=== PATIENT | male | born 1980 | race Caucasian/White ===

== ENCOUNTER 2017-01-07 14:08 | Emergency (ER) | payer MEDICARE, MEDICAID ==
--- NOTE | 2017-01-07 15:40 | EDM.PDOC ---
ED HPI RENAL/ - General Chief Complaint: Gastrointestinal Problem Stated Complaint: URINARY TRACK Time Seen by Provider: 01/07/17 14:30 Source of Information: Reports: Patient History Limitations: Reports: No limitations - History of Present Illness INITIAL COMMENTS - FREE TEXT/NARRATIVE: HISTORY AND PHYSICAL: History of present illness: Patient comes to the emergency room the urging of an RN at [facility] where he goes daily to receive his psychiatric meds. Nurse reports the patient's skin appears more hampton in color than usual. He has a history of anemia and nurse is concerned that he may not be taking his iron. He is scheduled for followup with his PCP Dr. Lambert on January 10. Patient is schizophrenic and has been receiving his medications regularly. He reports that he's been taking his iron as prescribed. He denies fatigue, weakness, dizziness and unsteady gait. No abdominal pain, nausea, vomiting. He denies dark black or bloody stools. He also complains of urinary burning and frequency today. States that he last saw Dr. Lambert at the end of December when he began treatment for UTI with antibiotics. He has completed this course of medication and feels that his symptoms have worsened. Has had episodes of urinary incontinence due to urgency. Review of systems: As per history of present illness and below otherwise all systems reviewed and negative. Past medical history: As per history of present illness and as reviewed below otherwise noncontributory. Surgical history: As per history of present illness and as reviewed below otherwise noncontributory. Social history: No reported history of drug or alcohol abuse. Family history: As per history of present illness and as reviewed below otherwise noncontributory. Physical exam: General: Obese well-developed male in no acute distress. Smells strongly of urine. HEENT: Atraumatic, normocephalic. Oral mucous membranes are pink and moist. negative for conjunctival pallor or scleral icterus, neck supple, nontender, trachea midline. Lungs: Clear to auscultation, breath sounds equal bilaterally, chest nontender. Heart: S1S2, regular, negative for clicks, rubs. Abdomen: Obese Soft, nondistended, nontender. Negative for masses or hepatosplenomegaly. Suprapubic or CVA tenderness. Pelvis: Stable nontender. Genitourinary: Deferred. Rectal: Deferred. Extremities: Atraumatic. No cyanosis or edema to feet or lower legs. Neurovascular unremarkable. Neuro: Awake, alert, oriented. Cranial nerves II through XII unremarkable. Exam nonfocal. psych: Alert and oriented affect is flat, voice is monotone. Diagnostics: [CBC, UA, urine culture] Impression: [Anemia Urinary incontinence] Plan: [[facility] records are obtained for review. Patient's hemoglobin on December 29 was 9.4. Hemoglobin today is 8.7. Patient is asymptomatic. Discussed with patient that his urinalysis is within normal limits and does not show any infection. Urine culture is pending. Offered hospitalization for continued monitoring of anemia which patient declines. He states that he would prefer to followup with primary care provider on January 10 as scheduled. We reviewed strict precautions which would indicate return to the ER for reevaluation. He is in agreement with this plan all of his questions are answered and concerns are addressed. Definitive disposition and diagnosis as appropriate pending reevaluation and review of above. - Related Data Allergies/ADRs: Allergies Allergy/AdvReac Type Severity Reaction Status Date / Time iodine Allergy Itching Verified 01/07/17 14:25 Penicillins AdvReac Mild Itching Verified 01/07/17 14:25 Home Meds: Home Meds Escitalopram [Lexapro] 30 mg PO DAILY 01/07/17 [History] Fenofibrate Nanocrystallized [Tricor] 325 mg PO DAILY 01/07/17 [History] Iron,Carbonyl/Vit C/Vit B12/Fa [Iron 100 Plus Tablet] 1 each PO DAILY 01/07/17 [ History] cloZAPine [Clozaril] 100 mg PO ASDIRECTED 01/07/17 [History] Past Medical History Gastrointestinal History: Reports: Hemorrhoids Genitourinary History: Reports: UTI, recurrent Psychiatric History: Reports: Anxiety, Depression, Schizophrenia Social & Family History - Family History Family Medical History: Noncontributory - Tobacco Use Years of Tobacco use: 1 - Caffeine Use Caffeine Use: Reports: Coffee, Soda Caffeine Use Comment: 3 drinks.day - Alcohol Use Days Per Week of Alcohol Use: 0 - Recreational Drug Use Recreational Drug Use: No ED ROS GENERAL - Review of Systems Review Of Systems: ROS reveals no pertinent complaints other than HPI. ED EXAM, RENAL/ - Physical Exam Exam: See Below Course - Vital Signs Last Recorded V/S: Last Vital Signs Temp 98.0 F 01/07/17 15:45 Pulse 121 H 01/07/17 15:45 Resp 18 01/07/17 15:45 BP 115/58 L 01/07/17 15:45 Pulse Ox 94 L 01/07/17 15:45 - Orders/Labs/Meds Orders: Active Orders 24 hr Category Date Time Status CULTURE URINE [RM] Stat Lab 01/07/17 14:23 Received Labs: Laboratory Tests 01/07/17 01/07/17 Range/Units 14:23 14:46 WBC 14.64 H (4.0-11.0) K/uL RBC 3.84 L (4.50-5.90) M/uL Hgb 8.7 L (13.0-17.0) g/dL Hct 29.4 L (38.0-50.0) % MCV 76.6 L (80.0-98.0) fL MCH 22.7 L (27.0-32.0) pg MCHC 29.6 L (31.0-37.0) g/dL RDW Std Deviation 48.3 (28.0-62.0) fl RDW Coeff of Lebron 17 H (11.0-15.0) % Plt Count 497 H (150-400) K/uL MPV 8.80 (7.40-12.00) fL Add Manual Diff YES Neutrophils % (Manual) 51 (48.0-80.0) % Band Neutrophils % 24 % Lymphocytes % (Manual) 16 (16.0-40.0) % Monocytes % (Manual) 6 (0.0-15.0) % Eosinophils % (Manual) 3 (0.0-7.0) % Nucleated RBC % 0.0 /100WBC Absolute Seg Neuts 7.5 Band Neutrophils # 3.5 Lymphocytes # (Manual) 2.3 Monocytes # (Manual) 0.9 Eosinophils # (Manual) 0.4 Nucleated RBCs # 0 K/uL Urine Color YELLOW Urine Appearance CLEAR Urine pH 6.0 (5.0-8.0) Ur Specific Deposit 1.025 (1.001-1.035) Urine Protein TRACE (NEGATIVE) mg/dL Urine Glucose (UA) NEGATIVE (NEGATIVE) mg/dL Urine Ketones TRACE H (NEGATIVE) mg/dL Urine Occult Blood NEGATIVE (NEGATIVE) Urine Nitrite NEGATIVE (NEGATIVE) Urine Bilirubin SMALL H (NEGATIVE) Urine Ictotest NEGATIVE Urine Urobilinogen 2.0 H (<2.0) EU/dL Ur Leukocyte Esterase NEGATIVE (NEGATIVE) Urine RBC 0-2 (0-2/HPF) Urine WBC 0-2 (0-5/HPF) Ur Epithelial Cells RARE (NONE-FEW) Calcium Oxalate Crystal FEW (NEGATIVE) Urine Bacteria FEW (NEGATIVE) Departure - Departure Time of Disposition: 15:40 Disposition: Home, Self-Care 01 Condition: good Clinical Impression: Anemia Instructions: Anemia, Nonspecific Referrals: Rene Lambert MD [Physician] - Forms: ED Department Discharge Additional Instructions: The following information is given to patients seen in the emergency department who are being discharged to home. This information is to outline your options for follow-up care. We provide all patients seen in our emergency department with a follow-up referral. The need for follow-up, as well as the timing and circumstances, are variable depending upon the specifics of your emergency department visit. If you don't have a primary care physician on staff, we will provide you with a referral. We always advise you to contact your personal physician following an emergency department visit to inform them of the circumstance of the visit and for follow-up with them and/or the need for any referrals to a consulting specialist. The emergency department will also refer you to a specialist when appropriate. This referral assures that you have the opportunity for follow-up care with a specialist. All of these measure are taken in an effort to provide you with optimal care, which includes your follow-up. Under all circumstances we always encourage you to contact your private physician who remains a resource for coordinating your care. When calling for follow-up care, please make the office aware that this follow-up is from your recent emergency room visit. If for any reason you are refused follow-up, please contact the [facility] emergency department at and asked to speak to the emergency department charge nurse. [address] [address] Followup with your primary care provider as scheduled on January 10, 2017. Return to ER as needed and as discussed. Take all medications as prescribed, including iron. - My Orders Last 24 Hours: My Active Orders 01/07/17 14:23 CULTURE URINE [] Stat - Assessment/Plan Last 24 Hours: My Active Orders 01/07/17 14:23 CULTURE URINE [] Stat
[2017-01-07 15:46] VITALS: BP 115/58
== END 2017-01-07 15:46 | disposition home or self-care (01) ==
LOC: MW.ED 14:08
DX: D64.9 Anemia, unspecified (principal); R32 Unspecified urinary incontinence; Z88.0 Allergy status to penicillin; Z79.899 Other long term (current) drug therapy; Z87.440 Personal history of urinary (tract) infections
CPT/HCPCS: 36415; 81001; 85025; 87086; 99283

== ENCOUNTER → 2017-01-12 | Outpatient (CLI) | payer MEDICARE, MEDICAID ==
--- NOTE | 2017-01-12 10:41 | CT ---
CT of the abdomen and pelvis without contrast. HISTORY: Anemia TECHNIQUE: Axial CT images were obtained of the abdomen and pelvis without contrast. Coronal and sag ittal reconstructions obtained. IV contrast allergy. FINDINGS: There is atelectasis and/or scarring within the left lung base. The liver, adrenal glands, and pancreas appear unremarkable for noncontrast examination. The splee n is mildly enlarged measuring 17 x 7.5 cm. The gallbladder appears normal. There is no bulky retro peritoneal lymphadenopathy. No abdominal ascites. There are no calcifications noted within the kidneys or along the courses of the ureters bilaterally . There is moderate stranding adjacent to the sigmoid colon with areas that appear to contain extralum inal pockets of air anteriorly. These appear to extend to the luminal surface of the sigmoid colon. Small nonpathologically enlarged pelvic lymph nodes are noted. There is a trace free pelvic fluid. T here is urinary bladder wall thickening, likely reactive. The visualized osseous structures appear normal. IMPRESSION: 1. Moderate perisigmoid stranding with probable extraluminal pockets of air which appear to extend f rom the colon itself. Given the appearance this may represent fistulas/ulcerations. Correlate clinic ally for ulcerative colitis. Alternatively this could represent an infectious or neoplastic process. Direct visualization may be beneficial. 2. Mild to moderate splenomegaly.
== END ==
LOC: MW.DI 09:29
PROVIDERS: ATTEND Family Medicine
DX: D64.9 Anemia, unspecified (principal); R70.0 Elevated erythrocyte sedimentation rate; R16.1 Splenomegaly, not elsewhere classified
CPT/HCPCS: 74176; 74176-26

== ENCOUNTER → 2017-01-14 | Outpatient (CLI) | payer MEDICARE, MEDICAID ==
[2017-01-14 12:45] LABS: CHLORIDE,CL 105 mmol/L (98-110); SODIUM,NA 138 mmol/L (136-146)
--- NOTE | 2017-01-14 13:48 | CT ---
CT of the abdomen and pelvis without contrast. HISTORY: Abdominal pain Comparison: 01/12/2017. TECHNIQUE: Axial CT images were obtained of the abdomen and pelvis without contrast. Coronal and sag ittal reconstructions obtained. IV contrast allergy. Oral contrast was administered. FINDINGS: There is atelectasis and/or scarring within the left lung base. The liver, adrenal glands, and pancreas appear unremarkable for noncontrast examination. The splee n is mildly enlarged measuring 17 x 7.5 cm. The gallbladder appears normal. There is no bulky retro peritoneal lymphadenopathy. No abdominal ascites. There are no calcifications noted within the kidneys or along the courses of the ureters bilaterally . There is moderate stranding adjacent to the sigmoid colon with areas that appear to contain extralum inal pockets of air anteriorly. These appear to extend to the luminal surface of the sigmoid colon. There is no extravasation of contrast into these areas however. Moderate colonic wall thickening is noted. Small nonpathologically enlarged pelvic lymph nodes are noted. There is a trace free pelvic f luid. The urinary bladder is decompressed. The visualized osseous structures appear normal. IMPRESSION: 1. Moderate perisigmoid stranding with probable extraluminal pockets of air which appear to extend f rom the colon itself. There is no extravasation of contrast within these areas however given the karin earance ulcerative colitis is a consideration. Direct visualization may be beneficial. 2. Mild to moderate splenomegaly.
--- NOTE | 2017-01-15 12:35 | PCM.SN ---
- Free Text/Narrative Note: called and talked to pt re blood work and ct results, and also asked about how pt is doing; he remarked he is doing much better, no pain/f/c/n/v; would like pt to be on a liquid diet over the weekend and see me in office on Tuesday; pt voiced understanding, and repeat my advice without problems.
== END ==
LOC: MW.CHGS 11:01
PROVIDERS: ATTEND Surgery
DX: D64.9 Anemia, unspecified (principal); R16.1 Splenomegaly, not elsewhere classified; R10.31 Right lower quadrant pain
CPT/HCPCS: 36415; 74176; 74176-26; 80053; 85025; 99204

== ENCOUNTER 2017-01-18 10:45 | Emergency (ER) | payer MEDICARE, MEDICAID ==
[2017-01-18] MEDS ORDERED: Sodium Chloride 0.9% 10 ML Syringe FLUSH PRN (11:08)
[2017-01-18] MEDS ORDERED: Ondansetron 4 MG/2 ML SDV IVPUSH ONE (11:08)
[2017-01-18] MEDS ORDERED: Sodium Chloride 0.9% 1,000 ML IV ONE (11:08)
[2017-01-18] MEDS ORDERED: Sodium Chloride 0.9% 2.5 ML Syringe FLUSH PRN (11:08)
--- NOTE | 2017-01-18 11:10 | EDM.PDOC ---
[id number]: VOMITTING Time Seen by Provider: 01/18/17 10:46 Source of Information: Reports: Patient History Limitations: Reports: No limitations - History of Present Illness INITIAL COMMENTS - FREE TEXT/NARRATIVE: History of present illness: [] Patient arrives with complaint of vomiting. He has been followed by Dr. Butler for the symptoms. He has had 2 CT scans showing perforated diverticulitis without abscess. Patient denies any fevers, abdominal pain, diarrhea, blood in his stool or blood in his emesis.she was supposed to see Dr. Landers in clinic today however he could not wait. Review of systems: As per history of present illness and below otherwise all systems reviewed and negative. Past medical history: As per history of present illness and as reviewed below otherwise noncontributory. Surgical history: As per history of present illness and as reviewed below otherwise noncontributory. Social history: No reported history of drug or alcohol abuse. Family history: As per history of present illness and as reviewed below otherwise noncontributory. Physical exam: General: Well developed, well nourished in NAD HEENT: Atraumatic, normocephalic, pupils reactive, conjunctival pallor or scleral icterus, mucous membranes moist, throat clear, neck supple, nontender, trachea midline. Lungs: Clear to auscultation, breath sounds equal bilaterally, chest nontender. Heart: S1S2, regular, negative for clicks, rubs, or JVD. Abdomen: Obese, Soft, nondistended, nontender, no rebound or guarding. Negative for masses or hepatosplenomegaly. Negative for costovertebral tenderness. Pelvis: Stable nontender. Genitourinary: Deferred. Rectal: Deferred. Extremities: Atraumatic, negative for cords or calf pain. Neurovascular unremarkable. Neuro: Awake, alert, oriented. Cranial nerves II through XII unremarkable. Cerebellum unremarkable. Motor and sensory unremarkable throughout. Exam nonfocal. Diagnostics: [] Labs were checked H&H is which is improved however he is bit dehydrated. Vital signs showed tachycardia of 128 with a normal blood pressure. Therapeutics: [] Patient started on Levaquin and Flagyl hydrated with IV saline, and given Zofran. Patient's reexam continues to show a benign abdomen I called Dr. Landers who recommended by mouth antibiotics, a building mover 3 days, discharging he will followup with the patient next week. Patient's caregiver in the room and was given instructions. Impression: [] Perforated diverticulitis diagnosed by Dr. LANDERS earlier this week, anemia Plan: [] Liquid diet for 3 days, take Levaquin and Flagyl as directed, Zofran for nausea followup with Dr. Landers next week return here if any fevers, bloody stools, abdominal pain or persistent vomiting occur. Definitive disposition and diagnosis as appropriate pending reevaluation and review of above. - Related Data Allergies/ADRs: Allergies Allergy/AdvReac Type Severity Reaction Status Date / Time iodine Allergy Itching Verified 01/18/17 10:59 Penicillins AdvReac Mild Itching Verified 01/18/17 10:59 Home Meds: Home Meds cloZAPine [Clozaril] 100 mg PO ACBREAKFAST 01/07/17 [History] Escitalopram [Lexapro] 30 mg PO DAILY 01/18/17 [History] Levofloxacin [Levaquin] 500 mg PO Q24H #7 tablet 01/18/17 [Rx] Ondansetron HCl [Zofran] 4 mg PO Q6HR #12 tablet 01/18/17 [Rx] cloZAPine [Clozaril] 300 mg PO BEDTIME 01/18/17 [History] metroNIDAZOLE [Flagyl] 500 mg PO Q12H #14 tablet 01/18/17 [Rx] Past Medical History Gastrointestinal History: Reports: Hemorrhoids Genitourinary History: Reports: UTI, recurrent Psychiatric History: Reports: Anxiety, Depression, Schizophrenia Social & Family History - Family History Family Medical History: Noncontributory - Tobacco Use Years of Tobacco use: 1 - Caffeine Use Caffeine Use: Reports: Coffee, Soda Caffeine Use Comment: 3 drinks.day - Alcohol Use Days Per Week of Alcohol Use: 0 - Recreational Drug Use Recreational Drug Use: No ED ROS GENERAL - Review of Systems Review Of Systems: See Below (See history of present illness) ED EXAM, GI/ABD - Physical Exam Exam: See Below (See history of present illness) Course - Vital Signs Last Recorded V/S: Last Vital Signs Temp 35.9 C 01/18/17 11:03 Pulse 118 H 01/18/17 12:00 Resp 18 01/18/17 12:00 BP 130/76 01/18/17 12:00 Pulse Ox 97 01/18/17 12:00 - Orders/Labs/Meds Orders: Active Orders 24 hr Category Date Time Status EKG 12 Lead [EKG Documentation Completion] [RC] ROUTINE Care 01/18/17 11:09 Active Sodium Chloride 0.9% [Saline Flush] Med 01/18/17 11:08 Active 10 ml FLUSH ASDIRECTED PRN Sodium Chloride 0.9% [Saline Flush] Med 01/18/17 11:08 Active 2.5 ml FLUSH ASDIRECTED PRN Peripheral IV Insertion Adult [OM.PC] Stat Oth 01/18/17 11:07 Ordered Medication Orders Sodium Chloride (Saline Flush) 10 ml FLUSH ASDIRECTED PRN PRN Reason: Keep Vein Open Last Admin: 01/18/17 11:27 Dose: 10 ml Sodium Chloride (Saline Flush) 2.5 ml FLUSH ASDIRECTED PRN PRN Reason: Keep Vein Open Last Admin: 01/18/17 11:27 Dose: 2.5 ml Labs: Laboratory Tests 01/18/17 01/18/17 01/18/17 Range/Units 11:13 11:13 11:13 WBC 9.38 (4.0-11.0) K/uL RBC 4.09 L (4.50-5.90) M/uL Hgb 9.4 L (13.0-17.0) g/dL Hct 31.5 L (38.0-50.0) % MCV 77.0 L (80.0-98.0) fL MCH 23.0 L (27.0-32.0) pg MCHC 29.8 L (31.0-37.0) g/dL RDW Std Deviation 51.6 (28.0-62.0) fl RDW Coeff of Lebron 19 H (11.0-15.0) % Plt Count 533 H (150-400) K/uL MPV 9.50 (7.40-12.00) fL Add Manual Diff YES Neutrophils % (Manual) 57 (48.0-80.0) % Band Neutrophils % 6 % Lymphocytes % (Manual) 22 (16.0-40.0) % Monocytes % (Manual) 10 (0.0-15.0) % Eosinophils % (Manual) 4 (0.0-7.0) % Basophils % (Manual) 1 (0.0-1.5) % Nucleated RBC % 0.0 /100WBC Absolute Seg Neuts 5.3 Band Neutrophils # 0.6 Lymphocytes # (Manual) 2.1 Monocytes # (Manual) 0.9 Eosinophils # (Manual) 0.4 Basophils # (Manual) 0 Nucleated RBCs # 0 K/uL Sodium 139 (136-146) mmol/L Potassium 3.8 (3.5-5.1) mmol/L Chloride 105 (98-110) mmol/L Carbon Dioxide 22 (21-31) mmol/L BUN 17 (6.0-23.0) mg/dL Creatinine 1.1 (0.6-1.5) mg/dL Est Cr Clr Drug Dosing 102.88 mL/min Estimated GFR (MDRD) > 60.0 ml/min Glucose 101 (60-110) mg/dL Calcium 8.6 L (8.8-10.8) mg/dL Total Bilirubin 0.6 (0.1-1.5) mg/dL AST 17 (5-40) IU/L ALT 8 (8-54) IU/L Alkaline Phosphatase 42 (40-150) Total Protein 7.7 (6.0-8.0) g/dL Albumin 2.9 L (3.5-5.0) g/dL Globulin 4.8 H (2.0-3.5) g/dL Albumin/Globulin Ratio 0.6 L (1.3-2.8) Blood Type O POSITIVE Antibody Screen NEGATIVE Meds: Medications Generic Name Dose Route Start Last Admin Trade Name Freq PRN Reason Stop Dose Admin Sodium Chloride 10 ml 01/18/17 11:08 01/18/17 11:27 Saline Flush FLUSH 10 ml ASDIRECTED PRN Administration Keep Vein Open Sodium Chloride 2.5 ml 01/18/17 11:08 01/18/17 11:27 Saline Flush FLUSH 2.5 ml ASDIRECTED PRN Administration Keep Vein Open Discontinued Medications Generic Name Dose Route Start Last Admin Trade Name Freq PRN Reason Stop Dose Admin Sodium Chloride 1,000 mls @ 999 mls/hr 01/18/17 11:08 01/18/17 11:27 Normal Saline IV 01/18/17 12:08 999 mls/hr .Bolus ONE Administration Levofloxacin 500 mg 01/18/17 12:17 01/18/17 12:28 Levaquin PO 01/18/17 12:18 500 mg ONETIME ONE Administration Metronidazole 500 mg 01/18/17 12:20 01/18/17 12:28 Metronidazole PO 01/18/17 12:21 500 mg ONETIME ONE Administration Ondansetron HCl 4 mg 01/18/17 11:08 01/18/17 11:27 Zofran IVPUSH 01/18/17 11:09 4 mg ONETIME ONE Administration Departure - Departure Time of Disposition: 13:12 Disposition: Home, Self-Care 01 Condition: good Clinical Impression: Diverticulitis of colon with perforation Prescriptions: Ondansetron HCl [Zofran] 4 mg PO Q6HR #12 tablet Levofloxacin [Levaquin] 500 mg PO Q24H #7 tablet metroNIDAZOLE [Flagyl] 500 mg PO Q12H #14 tablet Referrals: PCP,None [Primary Care Provider] - Forms: ED Department Discharge Additional Instructions: The following information is given to patients seen in the emergency department who are being discharged to home. This information is to outline your options for follow-up care. We provide all patients seen in our emergency department with a follow-up referral. The need for follow-up, as well as the timing and circumstances, are variable depending upon the specifics of your emergency department visit. If you don't have a primary care physician on staff, we will provide you with a referral. We always advise you to contact your personal physician following an emergency department visit to inform them of the circumstance of the visit and for follow-up with them and/or the need for any referrals to a consulting specialist. The emergency department will also refer you to a specialist when appropriate. This referral assures that you have the opportunity for follow-up care with a specialist. All of these measure are taken in an effort to provide you with optimal care, which includes your follow-up. Under all circumstances we always encourage you to contact your private physician who remains a resource for coordinating your care. When calling for follow-up care, please make the office aware that this follow-up is from your recent emergency room visit. If for any reason you are refused follow-up, please contact the [facility] Emergency Department at and asked to speak to the emergency department charge nurse. Take Levaquin and Flagyl as directed, liquid diet for 3-4 days, and Zofran for nausea, followup with Dr. LANDERS next week. Return here immediately if any fevers, abdominal pain, bloody stools or persistent vomiting occur. [facility] Specialty [facility] - General Surgery Professional Building [address] [place] [address], [address] [place] [address] [facility] [address] [place] [id number] - My Orders Last 24 Hours: My Active Orders 01/18/17 11:07 Peripheral IV Insertion Adult [OM.PC] Stat 01/18/17 11:08 Sodium Chloride 0.9% [Saline Flush] 10 ml FLUSH ASDIRECTED PRN Sodium Chloride 0.9% [Saline Flush] 2.5 ml FLUSH ASDIRECTED PRN 01/18/17 11:09 EKG 12 Lead [EKG Documentation Completion] [RC] ROUTINE - Assessment/Plan Last 24 Hours: My Active Orders 01/18/17 11:07 Peripheral IV Insertion Adult [OM.PC] Stat 01/18/17 11:08 Sodium Chloride 0.9% [Saline Flush] 10 ml FLUSH ASDIRECTED PRN Sodium Chloride 0.9% [Saline Flush] 2.5 ml FLUSH ASDIRECTED PRN 01/18/17 11:09 EKG 12 Lead [EKG Documentation Completion] [RC] ROUTINE
[2017-01-18 11:54] LABS: CHLORIDE,CL 105 mmol/L (98-110); SODIUM,NA 139 mmol/L (136-146)
[2017-01-18] MEDS ORDERED: Levofloxacin 500 MG Tab PO ONE (12:17)
[2017-01-18] MEDS ORDERED: metroNIDAZOLE 250 MG Tab PO ONE (12:20)
[2017-01-18 13:25] VITALS: BP 132/79
== END 2017-01-18 13:21 | disposition home or self-care (01) ==
LOC: MW.ED 10:45
DX: K57.20 Diverticulitis of large intestine with perforation and abscess without bleeding (principal); F41.9 Anxiety disorder, unspecified; F32.9 Major depressive disorder, single episode, unspecified; F20.9 Schizophrenia, unspecified; Z79.899 Other long term (current) drug therapy; Z88.0 Allergy status to penicillin; Z88.8 Allergy status to other drugs, medicaments and biological substances
CPT/HCPCS: 36415; 80053; 85025; 86850; 86900; 86901; 93005; 96361; 96374; 99284; A9270; J2405; J7040

== ENCOUNTER 2017-01-26 10:48 | Emergency (ER) | payer MEDICARE, MEDICAID ==
--- NOTE | 2017-01-26 11:04 | EDM.PDOC ---
ED HPI GENERAL MEDICAL PROBLEM - General Chief Complaint: General Stated Complaint: NOT FEELING GOOD Time Seen by Provider: 01/26/17 11:03 Source of Information: Reports: Patient History Limitations: Reports: No limitations - History of Present Illness INITIAL COMMENTS - FREE TEXT/NARRATIVE: HISTORY AND PHYSICAL: [36-year-old male presenting with generalized complaints the last month just not feeling well] History of Present Illness: [Patient called Dr. Landers with concerns and was advised to come to the emergency room. For general office clerk he sees Dr. Rene Lambert Patient does have history of diverticulitis History anemia History depression] Review of Systems: As per history of present illness and below otherwise all systems reviewed and negative. Past medical history: As per history of present illness and as reviewed below otherwise noncontributory. Surgical history: As per history of present illness and as reviewed below otherwise noncontributory. Social history: No reported history of drug or alcohol abuse. Family history: As per history of present illness and as reviewed below otherwise noncontributory. Physical exam: Alert gentleman answering questions appropriately very pale, his keycase assembler is in the room with him HEENT: Atraumatic, normocehpalic, pupils reactive, conjunctival pallor or negative scleral icterus, mucous membranes moist, throat clear, neck supple, nontender, trachea midline. Lungs: Clear to auscultation, breath sounds equal bilaterally, chest non tender. Heart: S1S2, regular, negative for clicks, rubs, or JVD. Abdomen: Soft, nondistended, nontender. Negative for masses or hepatossplenmegaly. Negative for costovertebral tenderness. Pelvis: Stable nontender. Genitourinary: Deferred. Rectal: Deferred Extremities: Atraumatic, negative for cords or calf pain. Neurovascular unremarkable. Neuro: Awake, alert, oriented. Cranial nerves II through XII unremarkable. Cerebellum unremarkable. Motor and sensory unremarkable throughout. Exam nonfocal. Diagnostics: [] CBC CMP EKG troponin amylase lipase ammonia UA Therapeutics: [] Impression: [fatigue anemia] Plan: [take your iron supplement with orange juice to improve absorption] Urine drug positive for methamphetamine Definitive disposition and diagnosis as appropriate pending reevaluation and review of above. Onset: gradual Duration: Week(s): (4) Location: Reports: generalized Severity: moderate - Related Data Allergies Allergy/AdvReac Type Severity Reaction Status Date / Time iodine Allergy Itching Verified 01/26/17 10:58 Penicillins AdvReac Mild Itching Verified 01/26/17 10:58 Home Meds: Home Meds cloZAPine [Clozaril] 100 mg PO ACBREAKFAST 01/07/17 [History] Escitalopram [Lexapro] 30 mg PO DAILY 01/18/17 [History] Levofloxacin [Levaquin] 500 mg PO Q24H #7 tablet 01/18/17 [Rx] Ondansetron HCl [Zofran] 4 mg PO Q6HR #12 tablet 01/18/17 [Rx] cloZAPine [Clozaril] 300 mg PO BEDTIME 01/18/17 [History] metroNIDAZOLE [Flagyl] 500 mg PO Q12H #14 tablet 01/18/17 [Rx] Fenofibrate Nanocrystallized [Tricor] 160 mg PO DAILY 01/26/17 [History] Ferrous Sulfate [Iron] 325 mg PO BID 01/26/17 [History] Past Medical History HEENT History: Reports: Impaired vision Gastrointestinal History: Reports: Hemorrhoids Genitourinary History: Reports: UTI, recurrent Psychiatric History: Reports: Anxiety, Depression, Schizophrenia Social & Family History - Family History Family Medical History: Noncontributory - Tobacco Use Smoking Status *Q: Current Every Day Smoker Years of Tobacco use: 1 Packs/Tins Daily: 0.3 Used Tobacco, but Quit: No Second Hand Smoke Exposure: No - Caffeine Use Caffeine Use: Reports: Coffee, Soda Caffeine Use Comment: 3 drinks.day - Alcohol Use Days Per Week of Alcohol Use: 0 - Recreational Drug Use Recreational Drug Use: No ED ROS GENERAL - Review of Systems Review Of Systems: ROS reveals no pertinent complaints other than HPI. ED EXAM, GENERAL - Physical Exam Exam: See Below Course - Vital Signs Last Recorded V/S: Last Vital Signs Temp 35.7 C 01/26/17 11:00 Pulse 120 H 01/26/17 11:00 Resp 18 01/26/17 11:00 BP 111/74 01/26/17 11:00 Pulse Ox 96 01/26/17 11:00 - Orders/Labs/Meds Orders: Active Orders 24 hr Category Date Time Status EKG Documentation Completion [RC] STAT Care 01/26/17 11:08 Active Chest 2V [CR] Stat Exams 01/26/17 11:09 Taken CULTURE BLOOD [BC] Stat Lab 01/26/17 12:00 Received CULTURE BLOOD [BC] Stat Lab 01/26/17 12:16 Received Sodium Chloride 0.9% [Saline Flush] Med 01/26/17 11:08 Active 10 ml FLUSH ASDIRECTED PRN Sodium Chloride 0.9% [Saline Flush] Med 01/26/17 11:08 Active 2.5 ml FLUSH ASDIRECTED PRN Blood Culture x2 Reflex Set [OM.PC] Stat Ot 01/26/17 11:09 Ordered Saline Lock Insert [OM.PC] Stat Ot 01/26/17 11:08 Ordered Medication Orders Sodium Chloride (Saline Flush) 10 ml FLUSH ASDIRECTED PRN PRN Reason: Keep Vein Open Sodium Chloride (Saline Flush) 2.5 ml FLUSH ASDIRECTED PRN PRN Reason: Keep Vein Open Labs: Laboratory Tests 01/26/17 01/26/17 01/26/17 Range/Units 11:08 11:27 11:45 WBC (4.0-11.0) K/uL RBC (4.50-5.90) M/uL Hgb (13.0-17.0) g/dL Hct (38.0-50.0) % MCV (80.0-98.0) fL MCH (27.0-32.0) pg MCHC (31.0-37.0) g/dL RDW Std Deviation (28.0-62.0) fl RDW Coeff of Lebron (11.0-15.0) % Plt Count (150-400) K/uL MPV (7.40-12.00) fL Neut % (Auto) (48.0-80.0) % Lymph % (Auto) (16.0-40.0) % Payne % (Auto) (0.0-15.0) % Eos % (Auto) (0.0-7.0) % Baso % (Auto) (0.0-1.5) % Neut # (Auto) (1.4-5.7) K/uL Lymph # (Auto) (0.6-2.4) K/uL Payne # (Auto) (0.0-0.8) K/uL Eos # (Auto) (0.0-0.7) K/uL Baso # (Auto) (0.0-0.1) K/uL Nucleated RBC % /100WBC Nucleated RBCs # K/uL Lactate 0.9 (0.20-2.00) mmol/L Sodium (136-146) mmol/L Potassium (3.5-5.1) mmol/L Chloride (98-110) mmol/L Carbon Dioxide (21-31) mmol/L BUN (6.0-23.0) mg/dL Creatinine (0.6-1.5) mg/dL Est Cr Clr Drug Dosing mL/min Estimated GFR (MDRD) ml/min Glucose (60-110) mg/dL Calcium (8.8-10.8) mg/dL Total Bilirubin (0.1-1.5) mg/dL AST (5-40) IU/L ALT (8-54) IU/L Alkaline Phosphatase (40-150) Ammonia 58 (14-68) UG/DL Total Protein (6.0-8.0) g/dL Albumin (3.5-5.0) g/dL Globulin (2.0-3.5) g/dL Albumin/Globulin Ratio (1.3-2.8) Amylase (10-90) U/L Lipase (7-80) U/L Urine Color DARK YELLOW Urine Appearance CLEAR Urine pH 5.5 (5.0-8.0) Ur Specific [place] >= 1.030 (1.001-1.035) Urine Protein 100 (NEGATIVE) mg/dL Urine Glucose (UA) NEGATIVE (NEGATIVE) mg/dL Urine Ketones TRACE H (NEGATIVE) mg/dL Urine Occult Blood NEGATIVE (NEGATIVE) Urine Nitrite POSITIVE H (NEGATIVE) Urine Bilirubin MODERATE H (NEGATIVE) Urine Ictotest NEGATIVE Urine Urobilinogen 1.0 (<2.0) EU/dL Ur Leukocyte Esterase TRACE (NEGATIVE) Urine RBC 0-2 (0-2/HPF) Urine WBC 1-2 (0-5/HPF) Ur Epithelial Cells FEW (NONE-FEW) Calcium Oxalate Crystal MODERATE (NEGATIVE) Urine Bacteria FEW (NEGATIVE) Urine Mucus MODERATE (NONE-MOD) Urine Opiates Screen (NEGATIVE) Ur Oxycodone Screen (NEGATIVE) Urine Methadone Screen (NEGATIVE) Ur Barbiturates Screen (NEGATIVE) Ur Phencyclidine Scrn (NEGATIVE) Ur Amphetamine Screen (NEGATIVE) U Methamphetamines Scrn (NEGATIVE) U Benzodiazepines Scrn (NEGATIVE) U Cocaine Metab Screen (NEGATIVE) U Marijuana (THC) Screen (NEGATIVE) 01/26/17 01/26/17 01/26/17 Range/Units 11:45 12:00 12:00 WBC 7.91 (4.0-11.0) K/uL RBC 4.20 L (4.50-5.90) M/uL Hgb 9.8 L (13.0-17.0) g/dL Hct 33.2 L (38.0-50.0) % MCV 79.0 L (80.0-98.0) fL MCH 23.3 L (27.0-32.0) pg MCHC 29.5 L (31.0-37.0) g/dL RDW Std Deviation 60.6 (28.0-62.0) fl RDW Coeff of Lebrno 21 H (11.0-15.0) % Plt Count 339 (150-400) K/uL MPV 9.60 (7.40-12.00) fL Neut % (Auto) 70.6 (48.0-80.0) % Lymph % (Auto) 18.5 (16.0-40.0) % Payne % (Auto) 7.7 (0.0-15.0) % Eos % (Auto) 2.8 (0.0-7.0) % Baso % (Auto) 0.4 (0.0-1.5) % Neut # (Auto) 5.6 (1.4-5.7) K/uL Lymph # (Auto) 1.5 (0.6-2.4) K/uL Payne # (Auto) 0.6 (0.0-0.8) K/uL Eos # (Auto) 0.2 (0.0-0.7) K/uL Baso # (Auto) 0.0 (0.0-0.1) K/uL Nucleated RBC % 0.0 /100WBC Nucleated RBCs # 0 K/uL Lactate (0.20-2.00) mmol/L Sodium 142 (136-146) mmol/L Potassium 3.9 (3.5-5.1) mmol/L Chloride 111 H (98-110) mmol/L Carbon Dioxide 22 (21-31) mmol/L BUN 12 (6.0-23.0) mg/dL Creatinine 1.2 (0.6-1.5) mg/dL Est Cr Clr Drug Dosing 97.10 mL/min Estimated GFR (MDRD) > 60.0 ml/min Glucose 98 (60-110) mg/dL Calcium 8.8 (8.8-10.8) mg/dL Total Bilirubin 0.5 (0.1-1.5) mg/dL AST 16 (5-40) IU/L ALT 9 (8-54) IU/L Alkaline Phosphatase 41 (40-150) Ammonia (14-68) UG/DL Total Protein 7.4 (6.0-8.0) g/dL Albumin 3.1 L (3.5-5.0) g/dL Globulin 4.3 H (2.0-3.5) g/dL Albumin/Globulin Ratio 0.7 L (1.3-2.8) Amylase 31 (10-90) U/L Lipase 75 (7-80) U/L Urine Color Urine Appearance Urine pH (5.0-8.0) Ur Specific [place] (1.001-1.035) Urine Protein (NEGATIVE) mg/dL Urine Glucose (UA) (NEGATIVE) mg/dL Urine Ketones (NEGATIVE) mg/dL Urine Occult Blood (NEGATIVE) Urine Nitrite (NEGATIVE) Urine Bilirubin (NEGATIVE) Urine Ictotest Urine Urobilinogen (<2.0) EU/dL Ur Leukocyte Esterase (NEGATIVE) Urine RBC (0-2/HPF) Urine WBC (0-5/HPF) Ur Epithelial Cells (NONE-FEW) Calcium Oxalate Crystal (NEGATIVE) Urine Bacteria (NEGATIVE) Urine Mucus (NONE-MOD) Urine Opiates Screen NEGATIVE (NEGATIVE) Ur Oxycodone Screen NEGATIVE (NEGATIVE) Urine Methadone Screen NEGATIVE (NEGATIVE) Ur Barbiturates Screen NEGATIVE (NEGATIVE) Ur Phencyclidine Scrn NEGATIVE (NEGATIVE) Ur Amphetamine Screen NEGATIVE (NEGATIVE) U Methamphetamines Scrn POSITIVE (NEGATIVE) U Benzodiazepines Scrn NEGATIVE (NEGATIVE) U Cocaine Metab Screen NEGATIVE (NEGATIVE) U Marijuana (THC) Screen NEGATIVE (NEGATIVE) Meds: Medications Generic Name Dose Route Start Last Admin Trade Name Freq PRN Reason Stop Dose Admin Sodium Chloride 10 ml 01/26/17 11:08 Saline Flush FLUSH ASDIRECTED PRN Keep Vein Open Sodium Chloride 2.5 ml 01/26/17 11:08 Saline Flush FLUSH ASDIRECTED PRN Keep Vein Open Departure - Departure Time of Disposition: 13:38 Disposition: Home, Self-Care 01 Condition: good Clinical Impression: Fatigue Qualifiers: Fatigue type: chronic, unspecified Qualified Code(s): R53.82 - Chronic fatigue , unspecified Referrals: PCP,None [Primary Care Provider] - Forms: ED Department Discharge Additional Instructions: The following information is given to patients seen in the emergency department who are being discharged to home. This information is to outline your options for follow-up care. We provide all patients seen in our emergency department with a follow-up referral. The need for follow-up, as well as the timing and circumstances, are variable depending upon the specifics of your emergency department visit. If you don't have a primary care physician on staff, we will provide you with a referral. We always advise you to contact your personal physician following an emergency department visit to inform them of the circumstance of the visit and for follow-up with them and/or the need for any referrals to a consulting specialist. The emergency department will also refer you to a specialist when appropriate. This referral assures that you have the opportunity for followup care with a specialist. All of these measure are taken in an effort to provide you with optimal care, which includes your followup. Under all circumstances we always encourage you to contact your private physician who remains a resource for coordinating your care. When calling for followup care, please make the office aware that this follow-up is from your recent emergency room visit. If for any reason you are refused follow-up, please contact the [facility] emergency department at and asked to speak to the emergency department charge nurse. Take your other meds and iron supplementation with orange juice to help the absorption Follow up with your primary care provider next week - My Orders Last 24 Hours: My Active Orders 01/26/17 11:08 EKG Documentation Completion [RC] STAT Sodium Chloride 0.9% [Saline Flush] 10 ml FLUSH ASDIRECTED PRN Sodium Chloride 0.9% [Saline Flush] 2.5 ml FLUSH ASDIRECTED PRN Saline Lock Insert [OM.PC] Stat 01/26/17 11:09 Chest 2V [CR] Stat Blood Culture x2 Reflex Set [OM.PC] Stat 01/26/17 12:00 CULTURE BLOOD [BC] Stat 01/26/17 12:16 CULTURE BLOOD [BC] Stat - Assessment/Plan Last 24 Hours: My Active Orders 01/26/17 11:08 EKG Documentation Completion [RC] STAT Sodium Chloride 0.9% [Saline Flush] 10 ml FLUSH ASDIRECTED PRN Sodium Chloride 0.9% [Saline Flush] 2.5 ml FLUSH ASDIRECTED PRN Saline Lock Insert [OM.PC] Stat 01/26/17 11:09 Chest 2V [CR] Stat Blood Culture x2 Reflex Set [OM.PC] Stat 01/26/17 12:00 CULTURE BLOOD [BC] Stat 01/26/17 12:16 CULTURE BLOOD [BC] Stat
[2017-01-26] MEDS ORDERED: Sodium Chloride 0.9% 2.5 ML Syringe FLUSH PRN (11:08)
[2017-01-26] MEDS ORDERED: Sodium Chloride 0.9% 10 ML Syringe FLUSH PRN (11:08)
[2017-01-26 12:42] LABS: CHLORIDE,CL 111 mmol/L (98-110); SODIUM,NA 142 mmol/L (136-146)
[2017-01-26 14:12] VITALS: BP 105/72
--- NOTE | 2017-01-26 17:26 | CR ---
EXAM DATE: 01/26/17 PATIENT'S AGE: 36 Patient: SIERRA MCGEE Facility: [place], [place] Site . Site : [id number] Study: XRay Chest [id number]/26/2017 12:15:04 PM Ordering Physician: Doctor Morgan Final Report: INDICATION: Pain. Shortness of breath. FINDINGS: PA and lateral chest x-rays show a normal cardiac silhouette. The lungs show no focal pulmonary opacities. Sharp pleural margins. No pneumothorax. IMPRESSION: No evidence of acute pulmonary abnormalities. Dictated by Justo Ha MD @ 01/26/2017 12:24:36 PM Dictated by: Justo Ha MD @ 01/26/2017 12:24:51 (Electronic Signature) Report Signed by Proxy and Original Signed Document filed in the Medical Record. MTDD
== END 2017-01-26 12:15 | disposition home or self-care (01) ==
LOC: MW.ED 10:48
DX: R53.82 Chronic fatigue, unspecified (principal); F41.9 Anxiety disorder, unspecified; F32.9 Major depressive disorder, single episode, unspecified; D64.9 Anemia, unspecified; Z87.440 Personal history of urinary (tract) infections; Z79.899 Other long term (current) drug therapy; F17.210 Nicotine dependence, cigarettes, uncomplicated; Z88.0 Allergy status to penicillin
CPT/HCPCS: 36415; 71020; 71020-26; 80053; 80305; 81001; 82140; 82150; 83605; 83690; 85025; 87040; 93005; 99283; 99285-25

== ENCOUNTER → 2017-01-31 | Outpatient (CLI) | payer MEDICARE, MEDICAID | LOC: MW.CHGS 08:00 | PROVIDERS: ATTEND Surgery | DX: D64.9 Anemia, unspecified (principal); R10.9 Unspecified abdominal pain | CPT/HCPCS: G0463 ==

== ENCOUNTER → 2017-02-23 | Outpatient (CLI) | payer MEDICARE, MEDICAID | LOC: MW.CHGS 08:00 | PROVIDERS: ATTEND Surgery | DX: R10.31 Right lower quadrant pain (principal); D64.9 Anemia, unspecified | CPT/HCPCS: G0463 ==

== ENCOUNTER 2017-03-08 10:12 | Day surgery (SDC) | payer MEDICARE, MEDICAID ==
[~2017-03-08 10:12] MED LIST: Lactated Ringers 1,000 ML IV SCH; Lidocaine 2% 5 ML SDV ONE; Lidocaine 4% Top Soln 50 ML Bottle ONE; Propofol 200 MG/20 ML SDV ONE; fentaNYL 100 MCG/2 ML SDV ONE
[2017-03-08] MEDS ORDERED: Midazolam 1 MG/ML 2 ML SDV ONE (10:34)
--- NOTE | 2017-03-08 10:42 | PCM.PREANE ---
Preanesthetic Assessment - Anesthesia/Transfusion/Family Hx Anesthesia History: No Prior Anesthesia Family History of Anesthesia Reaction: No Transfusion History: No Prior Transfusion(s) Intubation History: Unknown - Review of Systems General: No Symptoms Pulmonary: No Symptoms Cardiovascular: No Symptoms Gastrointestinal: No symptoms Neurological: No Symptoms Other: Reports: None - Physical Assessment Height: 1.83 m Weight: 160.118 kg ASA Class: 3 Mental Status: Alert & Oriented x3 Airway Class: Mallampati = 2 Dentition: Reports: Normal Dentition Thyro-Mental Finger Breadths: 3 Mouth Opening Finger Breadths: 3 ROM/Head Extension: Full Lungs: Clear to auscultation, Normal respiratory effort Cardiovascular: Regular Rate, Regular Rhythm - Allergies Allergies/Adverse Reactions: Allergies Allergy/AdvReac Type Severity Reaction Status Date / Time iodine Allergy Itching Verified 01/26/17 10:58 Penicillins AdvReac Mild Itching Verified 01/26/17 10:58 - Blood Blood Available: No - Anesthesia Plan Pre-Op Medication Ordered: None - Acknowledgements Anesthesia Type Planned: MAC Pt an Appropriate Candidate for the Planned Anesthesia: Yes Alternatives and Risks of Anesthesia Discussed w Pt/Guardian: Yes Pt/Guardian Understands and Agrees with Anesthesia Plan: Yes PreAnesthesia Questionnaire HEENT History: Reports: Impaired Vision Other HEENT History: wears glasses Cardiovascular History: Reports: High Cholesterol Respiratory History: Reports: None Gastrointestinal History: Reports: None Genitourinary History: Reports: None Musculoskeletal History: Reports: None Neurological History: Reports: None Psychiatric History: Reports: Other (See Below) Other Psychiatric History: schizo-affective disorder, depressive type Endocrine/Metabolic History: Reports: Obesity/BMI 30+ (BMI 47.9) Hematologic History: Reports: Anemia Other Hematologic History: Low HGB x<4-6wks Immunologic History: Reports: None Oncologic (Cancer) History: Reports: None Dermatologic History: Reports: None - Past Surgical History Head Surgeries/Procedures: Reports: None HEENT Surgical History: Reports: None Cardiovascular Surgical History: Reports: None GI Surgical History: Reports: None Male Surgical History: Reports: None Endocrine Surgical History: Reports: None Neurological Surgical History: Reports: None Musculoskeletal Surgical History: Reports: None Oncologic Surgical History: Reports: None Other Surgical History Comment: ingrown toe nail excision - SUBSTANCE USE Smoking Status *Q: Current Every Day Smoker Tobacco Use Within Last Twelve Months: Smokeless Tobacco Second Hand Smoke Exposure: No Days Per Week of Alcohol Use: 0 Recreational Drug Use History: No - HOME MEDS Home Medications: Home Meds cloZAPine [Clozaril] 100 mg PO ACBREAKFAST 01/07/17 [History] Escitalopram [Lexapro] 30 mg PO DAILY 01/18/17 [History] cloZAPine [Clozaril] 300 mg PO BEDTIME 01/18/17 [History] Fenofibrate Nanocrystallized [Tricor] 160 mg PO DAILY 01/26/17 [History] Ferrous Sulfate [Iron] 325 mg PO BID 01/26/17 [History] - CURRENT (IN HOUSE) MEDS Current Meds: Current Medications Lactated Ringer's (Ringers, Lactated) 1,000 mls @ 125 mls/hr IV ASDIRECTED CHLOE Last Admin: 03/08/17 10:35 Dose: 125 mls/hr Discontinued Medications Fentanyl (Sublimaze) Confirm Administered Dose 100 mcg .ROUTE .STK-MED ONE Stop: 03/08/17 10:07 Lidocaine (Xylocaine-Mpf 2%) Confirm Administered Dose 5 ml .ROUTE .STK-MED ONE Stop: 03/08/17 10:07 Lidocaine HCl (Xylocaine 4% Top Soln) Confirm Administered Dose 50 ml .ROUTE .STK-MED ONE Stop: 03/08/17 10:13 Midazolam HCl (Versed 1 Mg/Ml) Confirm Administered Dose 2 mg .ROUTE .STK-MED ONE Stop: 03/08/17 10:35 Propofol (Diprivan 20 Ml) Confirm Administered Dose 400 mg .ROUTE .STK-MED ONE Stop: 03/08/17 10:07
--- NOTE | 2017-03-08 11:41 | PCM.OPNOTE ---
- General Post-Op/Procedure Note Date of Surgery/Procedure: 03/08/17 Operative Procedure(s): egd w bx. attempted colonoscopy Findings: see dict [id number] Pre Op Diagnosis: anemia and gib Post-Op Diagnosis: gerd Anesthesia Technique: Moderate sedation Primary Surgeon: Skip Landers Pathology: egd bx Complications: None Condition: Good
--- NOTE | 2017-03-08 12:09 | PCM.POSTAN ---
POST ANESTHESIA ASSESSMENT - MENTAL STATUS Mental Status: alert, oriented - RESPIRATORY Respiratory Status: respiratory rate WNL, airway patent, O2 saturation stable - CARDIOVASCULAR CV Status: pulse rate WNL, blood pressure stable - GASTROINTESTINAL GI Status: no symptoms - POST OP HYDRATION Hydration Status: adequate & stable - OBSERVATIONS Free Text/Narrative:: no anesthesia problems
[2017-03-08 12:51] VITALS: BP 114/91
--- NOTE | 2017-03-09 06:20 | OR ---
SURGEON: Skip Landers MD DATE OF PROCEDURE: 03/08/2017 PREOPERATIVE DIAGNOSES: Anemic and gastrointestinal bleeding. POSTOPERATIVE DIAGNOSES: Gastritis and gastroesophageal reflux disease. PROCEDURE PERFORMED: Esophagogastroduodenoscopy with biopsy and attempted colonoscopy. COMPLICATIONS: None. FINDINGS: EGD findings: 1. The patient is easily sedated with VASCULAR TECH and Diprivan. The patient is soundly snoring. 2. Oropharynx and proximal esophagus is free of disease, grossly normal, and no inflammation, stricture, or diverticulae. GE junction at 40 shows moderate amount of salmon-colored change consistent with acid reflux. Stomach rugae is normal in appearance. There is no food, blood in the stomach, but large amount of bile and antrum is a little bit inflamed and duodenum was grossly normal. Retroflexed to look at the fundus and stomach, the patient has a small component of hiatal hernia and biopsy done on antrum, and sucked out the air while scope pulling out. Only one biopsy was done because of concern of anemic event. Colonoscopy findings: Attempted colonoscopy to 25 cm, encountered solid stool. In fact, a lot of solid stool, even at the rectum, and so scope abort. DESCRIPTION OF PROCEDURE: EGD: The patient was taken to the endoscopy room, and with the VASCULAR TECH, Diprivan was administered. A well-lubricated EGD scope was gently inserted through the oropharynx, down the esophagus, passing through the gastroesophageal junction, into the stomach. The mucosa was examined upon the passage. Any etiology will be noted. Once in the stomach, we continued to advance to the distal antrum, passed through the pylorus into the second portion of the duodenum. Again, the mucosa was examined for any abnormality and etiology. The scope was then retrieved back to the stomach and then retroflexed to look at the fundus of the stomach. If a biopsy was indicated, we will biopsy the antrum, body, and gastroesophageal junction. The air will be sucked out while the scope is retrieved to reduce the patient's discomfort. The patient tolerated the procedure well. There were no intraoperative complications. Dr. Landers was present through the whole procedure. Prior to surgery, a time-out had been called, the patient identified, procedure identified and antibiotic administered. Colonoscopy: The patient was taken to the operating room, placed in the supine position. Upon induction of mild general sedation, the patient was repositioned to left decubitus position, left side down and right side up, and inspection of the rectum was performed. Note that the patient has severe hidradenitis around the perianal area and some of them of are draining pus. Digital exam is no gross mass observed, and a well lubricated colonoscopy was gently inserted through the rectum, immediately encountered a large amount of solid stool and gently advanced upward and saw more solid stool, gently navigated to about 25 cm and encountered solid stool, cannot be negotiated with irrigation or moving colonoscope. From the limited study of colonoscope, there is no disease observed except in the anal area. It sounds like there may be a small fistula in appearance, but cannot be sure because we cannot put a Q-tip to look at. Again, the patient would benefit from repeat colonoscopy with extended bowel prep in about 6 to 12 months. RADHA / VIC /[id number]
== END 2017-03-08 12:22 | disposition home or self-care (01) ==
LOC: MW.SDS 10:12
PROVIDERS: ATTEND Surgery
DX: K31.89 Other diseases of stomach and duodenum (principal); K44.9 Diaphragmatic hernia without obstruction or gangrene; E78.00 Pure hypercholesterolemia, unspecified; Z88.0 Allergy status to penicillin; Z88.8 Allergy status to other drugs, medicaments and biological substances; Z91.041 Radiographic dye allergy status; Z79.899 Other long term (current) drug therapy; Z72.0 Tobacco use
CPT/HCPCS: 36415; 43239; 45330; 85025; 88305; 88312; A9270; J2250; J3010; J7120; 00740; J2704

== ENCOUNTER 2017-08-02 11:25 | Day surgery (SDC) | payer MEDICARE, MEDICAID ==
[~2017-08-02 11:25] MED LIST changes: -Lidocaine 2% 5 ML SDV ONE; -Lidocaine 4% Top Soln 50 ML Bottle ONE; -Propofol 200 MG/20 ML SDV ONE; -fentaNYL 100 MCG/2 ML SDV ONE
--- NOTE | 2017-08-02 12:08 | PCM.PREANE ---
Preanesthetic Assessment - Anesthesia/Transfusion/Family Hx Anesthesia History: Prior Anesthesia Without Reaction Family History of Anesthesia Reaction: No Transfusion History: No Prior Transfusion(s) Intubation History: Unknown - Review of Systems General: No Symptoms Pulmonary: No Symptoms Cardiovascular: No Symptoms Gastrointestinal: No Symptoms Neurological: No Symptoms Other: Reports: None - Physical Assessment NPO Status Date: 08/01/17 Height: 1.83 m Weight: 160.118 kg ASA Class: 2 Mental Status: Alert & Oriented x3 Airway Class: Mallampati = 2 Dentition: Reports: Normal Dentition ROM/Head Extension: Full Lungs: Clear to Auscultation, Normal Respiratory Effort Cardiovascular: Regular Rate, Regular Rhythm - Allergies Allergies/Adverse Reactions: Allergies Allergy/AdvReac Type Severity Reaction Status Date / Time iodine Allergy Itching Verified 01/26/17 10:58 Penicillins AdvReac Mild Itching Verified 01/26/17 10:58 - Anesthesia Plan Pre-Op Medication Ordered: None - Acknowledgements Anesthesia Type Planned: MAC Pt an Appropriate Candidate for the Planned Anesthesia: Yes Alternatives and Risks of Anesthesia Discussed w Pt/Guardian: Yes Pt/Guardian Understands and Agrees with Anesthesia Plan: Yes PreAnesthesia Questionnaire HEENT History: Reports: Impaired Vision Other HEENT History: wears glasses Cardiovascular History: Reports: High Cholesterol Respiratory History: Reports: None Gastrointestinal History: Reports: None Genitourinary History: Reports: None Musculoskeletal History: Reports: None Neurological History: Reports: None Psychiatric History: Reports: Anxiety, Depression, Schizophrenia Other Psychiatric History: schizo-affective disorder, depressive type Endocrine/Metabolic History: Reports: Obesity/BMI 30+ Hematologic History: Reports: Anemia Immunologic History: Reports: None Oncologic (Cancer) History: Reports: None Dermatologic History: Reports: None - Past Surgical History Head Surgeries/Procedures: Reports: None HEENT Surgical History: Reports: None Cardiovascular Surgical History: Reports: None GI Surgical History: Reports: Colonoscopy, EGD Male Surgical History: Reports: None Endocrine Surgical History: Reports: None Neurological Surgical History: Reports: None Musculoskeletal Surgical History: Reports: None Oncologic Surgical History: Reports: None - SUBSTANCE USE Smoking Status *Q: Current Every Day Smoker Tobacco Use Within Last Twelve Months: Smokeless Tobacco Second Hand Smoke Exposure: No Days Per Week of Alcohol Use: 0 Recreational Drug Use History: No - HOME MEDS Home Medications: Home Meds cloZAPine [Clozaril] 100 mg PO ACBREAKFAST 01/07/17 [History] Escitalopram [Lexapro] 30 mg PO DAILY 01/18/17 [History] cloZAPine [Clozaril] 300 mg PO BEDTIME 01/18/17 [History] Fenofibrate Nanocrystallized [Tricor] 160 mg PO DAILY 01/26/17 [History] Ferrous Sulfate [Iron] 325 mg PO BID 01/26/17 [History] - CURRENT (IN HOUSE) MEDS Current Meds: Current Medications Lactated Ringer's (Ringers, Lactated) 1,000 mls @ 125 mls/hr IV ASDIRECTED [facility] Last Admin: 08/02/17 12:05 Dose: 125 mls/hr
[2017-08-02] MEDS ORDERED: Propofol 200 MG/20 ML SDV ONE (12:49)
[2017-08-02] MEDS ORDERED: Lidocaine 2% 5 ML SDV ONE (13:00)
--- NOTE | 2017-08-02 13:26 | PCM.OPNOTE ---
- General Post-Op/Procedure Note Date of Surgery/Procedure: 08/02/17 Operative Procedure(s): attempted colonoscopy Findings: see dict [id number] Pre Op Diagnosis: hx of diverticulitis Post-Op Diagnosis: incomplete colonoscope because of solid stool Anesthesia Technique: Moderate Sedation Primary Surgeon: Skip Landers Complications: None Condition: Good
--- NOTE | 2017-08-02 13:37 | PCM48HPAN ---
Post Anesthesia Note - EVALUATION WITHIN 48HRS OF ANESTHETIC Vital Signs in Normal Range: Yes Patient Participated in Evaluation: Yes Respiratory Function Stable: Yes Airway Patent: Yes Cardiovascular Function Stable: Yes Hydration Status Stable: Yes Pain Control Satisfactory: Yes Nausea and Vomiting Control Satisfactory: Yes Mental Status Recovered: Yes
--- NOTE | 2017-08-02 13:37 | PCM.POSTAN ---
POST ANESTHESIA ASSESSMENT - MENTAL STATUS Mental Status: Alert, Oriented - RESPIRATORY Respiratory Status: Respiratory Rate WNL, Airway Patent, O2 Saturation Stable - CARDIOVASCULAR CV Status: Pulse Rate WNL, Blood Pressure Stable, Elevated Pulse Rate - GASTROINTESTINAL GI Status: No Symptoms - POST OP HYDRATION Hydration Status: Adequate & Stable
[2017-08-02 13:45] VITALS: BP 97/82
--- NOTE | 2017-08-02 13:53 | OR ---
SURGEON: Skip Landers MD DATE OF PROCEDURE: 08/02/2017 PREOPERATIVE DIAGNOSIS: Diverticulitis history. POSTOPERATIVE DIAGNOSIS: Incomplete colonoscopy because of bowel prep. PROCEDURE PERFORMED: Attempted colonoscopy. FINDINGS: Large amount of solid stool from the rectal opening all the way up and scope all the way to 35 cm encountered solid rigid stool, dangerous to proceed. Do not see any pathology within a 30 cm of the colon and outside the rectum the patient has a cutaneous opening not quite sure what is that and is blind, and we will address this on the followup visit. PROCEDURE IN DETAIL: The patient was taken to the endoscopy room and put in a supine position. The patient was repositioned in the left decubitus position, left side down and right side up, and then mild general sedation was given. Diprivan anesthesia by BARREL FILLER [employer] and a well lubricated scope was gently inserted through the rectum. Prior to the rectum inspection performed, digital examination was performed. The patient does not have external hemorrhoids, but the patient has an opening very close to the rectum, pretty large, about 5 to 6 mm, and using a Q-tip it does not go anywhere, cannot tell whether it is a fistula or fissure. It is between the anal opening and the penis, and the scope inserted through the rectum and encountered solid stool. With constant irrigation, some of the stool give-way, but not all and scope all the way to 35 cm and stool would not yield with irrigation and it is dangerous with perforation upward. During this short distance examination, do not see any signs or symptoms suggest fistula or fissure, and there was no disease. The patient does have internal hemorrhoids. The patient tolerated the procedure well. There were no intraoperative complications. RADHA / VIC /[id number]
== END 2017-08-02 14:00 | disposition home or self-care (01) ==
LOC: MW.SDS 11:25
PROVIDERS: ATTEND Surgery
DX: K64.8 Other hemorrhoids (principal); D64.9 Anemia, unspecified; E78.00 Pure hypercholesterolemia, unspecified; F17.290 Nicotine dependence, other tobacco product, uncomplicated; F41.9 Anxiety disorder, unspecified; F32.9 Major depressive disorder, single episode, unspecified; F25.9 Schizoaffective disorder, unspecified; E66.9 Obesity, unspecified; Z88.0 Allergy status to penicillin; Z91.041 Radiographic dye allergy status; Z79.899 Other long term (current) drug therapy; Z98.890 Other specified postprocedural states; Z68.42 Body mass index [BMI] 45.0-49.9, adult
CPT/HCPCS: 45378; J7120; 00810; J2704

== ENCOUNTER 2017-08-24 09:36 | Emergency (ER) | payer MEDICARE, MEDICAID ==
[2017-08-24] MEDS ORDERED: Sodium Chloride 0.9% 2.5 ML Syringe FLUSH PRN (10:03)
[2017-08-24] MEDS ORDERED: Sodium Chloride 0.9% 10 ML Syringe FLUSH PRN (10:03)
[2017-08-24] MEDS ORDERED: Sodium Chloride 0.9% 1,000 ML IV ONE (10:06)
--- NOTE | 2017-08-24 10:11 | EDM.PDOC ---
ED HPI GENERAL MEDICAL PROBLEM - General Chief Complaint: Abdominal Pain Stated Complaint: FLU SYMPTOMS Time Seen by Provider: 08/24/17 10:08 Source of Information: Reports: Patient History Limitations: Reports: No Limitations - History of Present Illness INITIAL COMMENTS - FREE TEXT/NARRATIVE: HISTORY AND PHYSICAL: []36-year-old male patient with complaints of abdominal pain and jaundice History of Present Illness: [Patient has been ill for the last 2 days with abdominal pain He has voided this morning and he has had a bowel movement this morning all were normal] Review of Systems: As per history of present illness and below otherwise all systems reviewed and negative. Past medical history: As per history of present illness and as reviewed below otherwise noncontributory. Surgical history: As per history of present illness and as reviewed below otherwise noncontributory. Social history: No reported history of drug or alcohol abuse. Family history: As per history of present illness and as reviewed below otherwise noncontributory. Physical exam: Alert and oriented male with a sod stripper present. He is quite jaundiced skin and scleral areas. Answering questions appropriately in full sentences without any shortness of breath. Currently on Clozaril. He denied any pain at this time while he is being examined. He does point to mid abdomen as the area of pain. HEENT: Atraumatic, normocehpalic, pupils reactive, negative for conjunctival pallor or scleral icterus, mucous membranes dry, throat clear, neck supple, nontender, trachea midline. Lungs: Clear to auscultation, breath sounds equal bilaterally, chest non tender. Heart: S1S2, regular, negative for clicks, rubs, or JVD. Abdomen: Soft, nondistended, nontender. Negative for masses or hepatossplenmegaly. Negative for costovertebral tenderness. Pelvis: Stable nontender. Genitourinary: Deferred. Rectal: Deferred Extremities: Atraumatic, negative for cords or calf pain. No peripheral edema. Neurovascular unremarkable. Neuro: Awake, alert, oriented. Cranial nerves II through XII unremarkable. Cerebellum unremarkable. Motor and sensory unremarkable throughout. Exam nonfocal. Have discussed this case with Dr. Al, local surgeon cotton presser, she has recommended transferring this patient to in [place] as this is a more complicated surgery than what could be taken at this facility. Have discussed with one call at [facility] in [place] and they were able to contact Dr. Taveras in surgery and after hearing the patient's lab work and concerns he ate accepted this patient for admission. Have discussed with the patient my concerns with his CT scan and his elevated bilirubin. Have discussed that he needs to be transferred he is reluctant to be leaving today however have expressed my concern and that he is very ill and needs to be taken care of. Have further discussed the complexity of his condition that we are unable to provide appropriate services to him here at this facility Diagnostics: [CBC CMP amylase and lipase chest x-ray CT abdomen pelvis with contrast] Therapeutics: [1 L normal saline] Impression: [Hyperbilirubinemia Multiplecolon fistulas Abdominal pain History of ulcerative colitis] Plan: [Transfer per ground ambulance to [facility] All transfer forms have been completed] Definitive disposition and diagnosis as appropriate pending reevaluation and review of above. Onset: Sudden Duration: Day(s): (2) Location: Reports: Abdomen Severity: Moderate - Related Data Allergies Allergy/AdvReac Type Severity Reaction Status Date / Time iodine Allergy Itching Verified 08/24/17 09:48 Penicillins AdvReac Mild Itching Verified 08/24/17 09:48 Home Meds: Home Meds cloZAPine [Clozaril] 100 mg PO ACBREAKFAST 01/07/17 [History] Escitalopram [Lexapro] 30 mg PO DAILY 01/18/17 [History] cloZAPine [Clozaril] 300 mg PO BEDTIME 01/18/17 [History] Fenofibrate Nanocrystallized [Tricor] 160 mg PO DAILY 01/26/17 [History] Ferrous Sulfate [Iron] 325 mg PO BID 01/26/17 [History] Past Medical History HEENT History: Reports: Impaired Vision Other HEENT History: wears glasses Cardiovascular History: Reports: High Cholesterol Respiratory History: Reports: None Gastrointestinal History: Reports: None Genitourinary History: Reports: None Musculoskeletal History: Reports: None Neurological History: Reports: None Psychiatric History: Reports: Anxiety, Depression, Schizophrenia Other Psychiatric History: schizo-affective disorder, depressive type Endocrine/Metabolic History: Reports: Obesity/BMI 30+ Hematologic History: Reports: Anemia Immunologic History: Reports: None Oncologic (Cancer) History: Reports: None Dermatologic History: Reports: None - Infectious Disease History Infectious Disease History: Reports: Chicken Pox - Past Surgical History Head Surgeries/Procedures: Reports: None HEENT Surgical History: Reports: None Cardiovascular Surgical History: Reports: None GI Surgical History: Reports: Colonoscopy, EGD Male Surgical History: Reports: None Endocrine Surgical History: Reports: None Neurological Surgical History: Reports: None Musculoskeletal Surgical History: Reports: None Oncologic Surgical History: Reports: None Social & Family History - Family History Family Medical History: Noncontributory - Tobacco Use Smoking Status *Q: Never Smoker Years of Tobacco use: 22 Packs/Tins Daily: 0.5 Used Tobacco, but Quit: No Second Hand Smoke Exposure: No - Caffeine Use Caffeine Use: Reports: Coffee, Soda Caffeine Use Comment: 3 drinks.day - Alcohol Use Days Per Week of Alcohol Use: 0 - Recreational Drug Use Recreational Drug Use: No Drug Use in Last 12 Months: No ED ROS GENERAL - Review of Systems Review Of Systems: ROS reveals no pertinent complaints other than HPI. ED EXAM, GI/ABD - Physical Exam Exam: See Below (see dictation) Course - Vital Signs Last Recorded V/S: Last Vital Signs Temp 36.6 C 08/24/17 09:45 Pulse 110 H 08/24/17 10:50 Resp 18 08/24/17 10:50 BP 124/59 L 08/24/17 10:50 Pulse Ox 95 08/24/17 10:50 - Orders/Labs/Meds Orders: Active Orders 24 hr Category Date Time Status EKG Documentation Completion [RC] STAT Care 08/24/17 10:04 Active HEPATITIS C AB [REF] Stat Lab 08/24/17 09:59 Received UA W/MICROSCOPIC [URIN] Stat Lab 08/24/17 10:04 Uncollected Sodium Chloride 0.9% [Saline Flush] Med 08/24/17 10:03 Active 10 ml FLUSH ASDIRECTED PRN Sodium Chloride 0.9% [Saline Flush] Med 08/24/17 10:03 Active 2.5 ml FLUSH ASDIRECTED PRN Saline Lock Insert [OM.PC] Stat Oth 08/24/17 10:03 Ordered Medication Orders Sodium Chloride (Saline Flush) 10 ml FLUSH ASDIRECTED PRN PRN Reason: Keep Vein Open Sodium Chloride (Saline Flush) 2.5 ml FLUSH ASDIRECTED PRN PRN Reason: Keep Vein Open Labs: Laboratory Tests 08/24/17 08/24/1717 Range/Units 09:59 09:59 09:59 WBC 12.00 H (4.0-11.0) K/uL RBC 4.51 (4.50-5.90) M/uL Hgb 12.1 L (13.0-17.0) g/dL Hct 37.3 L (38.0-50.0) % MCV 82.7 (80.0-98.0) fL MCH 26.8 L (27.0-32.0) pg MCHC 32.4 (31.0-37.0) g/dL RDW Std Deviation 57.3 (28.0-62.0) fl RDW Coeff of Lebron 19 H (11.0-15.0) % Plt Count 354 (150-400) K/uL MPV 11.40 (7.40-12.00) fL Neut % (Auto) 71.8 (48.0-80.0) % Lymph % (Auto) 15.5 L (16.0-40.0) % Addison % (Auto) 8.6 (0.0-15.0) % Eos % (Auto) 3.6 (0.0-7.0) % Baso % (Auto) 0.5 (0.0-1.5) % Neut # (Auto) 8.6 H (1.4-5.7) K/uL Lymph # (Auto) 1.9 (0.6-2.4) K/uL Addison # (Auto) 1.0 H (0.0-0.8) K/uL Eos # (Auto) 0.4 (0.0-0.7) K/uL Baso # (Auto) 0.1 (0.0-0.1) K/uL Nucleated RBC % 0.0 /100WBC Nucleated RBCs # 0 K/uL INR 1.50 H (0.86-1.11) Sodium 138 (136-146) mmol/L Potassium 3.3 L (3.5-5.1) mmol/L Chloride 109 (98-110) mmol/L Carbon Dioxide 18 L (21-31) mmol/L BUN 12 (6.0-23.0) mg/dL Creatinine 1.2 (0.6-1.5) mg/dL Est Cr Clr Drug Dosing 97.10 mL/min Estimated GFR (MDRD) > 60.0 ml/min Glucose 127 H (60-110) mg/dL Calcium 9.7 (8.8-10.8) mg/dL Total Bilirubin 10.5 H (0.1-1.5) mg/dL AST 91 H (5-40) IU/L ALT 118 H (8-54) IU/L Alkaline Phosphatase 240 H (40-150) Ammonia (14-68) UG/DL Total Protein 8.2 H (6.0-8.0) g/dL Albumin 3.6 (3.5-5.0) g/dL Globulin 4.6 H (2.0-3.5) g/dL Albumin/Globulin Ratio 0.8 L (1.3-2.8) Amylase 17 (10-90) U/L Lipase < 9 (7-80) U/L TSH 3rd Generation 0.79 (0.47-5.0) uIU/mL 08/24/17 Range/Units 09:59 WBC (4.0-11.0) K/uL RBC (4.50-5.90) M/uL Hgb (13.0-17.0) g/dL Hct (38.0-50.0) % MCV (80.0-98.0) fL MCH (27.0-32.0) pg MCHC (31.0-37.0) g/dL RDW Std Deviation (28.0-62.0) fl RDW Coeff of Lebron (11.0-15.0) % Plt Count (150-400) K/uL MPV (7.40-12.00) fL Neut % (Auto) (48.0-80.0) % Lymph % (Auto) (16.0-40.0) % Addison % (Auto) (0.0-15.0) % Eos % (Auto) (0.0-7.0) % Baso % (Auto) (0.0-1.5) % Neut # (Auto) (1.4-5.7) K/uL Lymph # (Auto) (0.6-2.4) K/uL Addison # (Auto) (0.0-0.8) K/uL Eos # (Auto) (0.0-0.7) K/uL Baso # (Auto) (0.0-0.1) K/uL Nucleated RBC % /100WBC Nucleated RBCs # K/uL INR (0.86-1.11) Sodium (136-146) mmol/L Potassium (3.5-5.1) mmol/L Chloride (98-110) mmol/L Carbon Dioxide (21-31) mmol/L BUN (6.0-23.0) mg/dL Creatinine (0.6-1.5) mg/dL Est Cr Clr Drug Dosing mL/min Estimated GFR (MDRD) ml/min Glucose (60-110) mg/dL Calcium (8.8-10.8) mg/dL Total Bilirubin (0.1-1.5) mg/dL AST (5-40) IU/L ALT (8-54) IU/L Alkaline Phosphatase (40-150) Ammonia 74 H (14-68) UG/DL Total Protein (6.0-8.0) g/dL Albumin (3.5-5.0) g/dL Globulin (2.0-3.5) g/dL Albumin/Globulin Ratio (1.3-2.8) Amylase (10-90) U/L Lipase (7-80) U/L TSH 3rd Generation (0.47-5.0) uIU/mL Meds: Medications Generic Name Dose Route Start Last Admin Trade Name Freq PRN Reason Stop Dose Admin Sodium Chloride 10 ml 08/24/17 10:03 Saline Flush FLUSH ASDIRECTED PRN Keep Vein Open Sodium Chloride 2.5 ml 08/24/17 10:03 Saline Flush FLUSH ASDIRECTED PRN Keep Vein Open Discontinued Medications Generic Name Dose Route Start Last Admin Trade Name Freq PRN Reason Stop Dose Admin Sodium Chloride 1,000 mls @ 999 mls/hr 08/24/17 10:06 08/24/17 10:25 Normal Saline IV 08/24/17 11:06 999 mls/hr STAT ONE Administration Departure - Departure Time of Disposition: 12:08 Disposition: DC/Tfer to Acute Hospital 02 Condition: Good Clinical Impression: Hyperbilirubinemia Abdominal pain Qualifiers: Abdominal location: periumbilical Qualified Code(s): R10.33 - Periumbilical pain - Discharge Information Referrals: PCP,None [Primary Care Provider] - Forms: ED Department Discharge - My Orders Last 24 Hours: My Active Orders 08/24/17 09:59 HEPATITIS C AB [REF] Stat 08/24/17 10:03 Sodium Chloride 0.9% [Saline Flush] 10 ml FLUSH ASDIRECTED PRN Sodium Chloride 0.9% [Saline Flush] 2.5 ml FLUSH ASDIRECTED PRN Saline Lock Insert [OM.PC] Stat 08/24/17 10:04 EKG Documentation Completion [RC] STAT UA W/MICROSCOPIC [URIN] Stat - Assessment/Plan Last 24 Hours: My Active Orders 08/24/17 09:59 HEPATITIS C AB [REF] Stat 08/24/17 10:03 Sodium Chloride 0.9% [Saline Flush] 10 ml FLUSH ASDIRECTED PRN Sodium Chloride 0.9% [Saline Flush] 2.5 ml FLUSH ASDIRECTED PRN Saline Lock Insert [OM.PC] Stat 08/24/17 10:04 EKG Documentation Completion [RC] STAT UA W/MICROSCOPIC [URIN] Stat
[2017-08-24 10:35] LABS: CHLORIDE,CL 109 mmol/L (98-110); SODIUM,NA 138 mmol/L (136-146)
--- NOTE | 2017-08-24 10:52 | CR ---
EXAMINATION: Two-view chest (PA and Lateral views). HISTORY: Shortness of breath. FINDINGS: The trachea is midline. The cardiomediastinal silhouette is within normal limits. No pulmonary infilt rates, effusions or pneumothorax. Osseous structures appear unremarkable. IMPRESSION: No acute cardiopulmonary process.
[2017-08-24 10:55] VITALS: BP 124/59
--- NOTE | 2017-08-24 11:12 | CT ---
CT of the abdomen and pelvis without contrast. HISTORY: Pain TECHNIQUE: Axial CT images were obtained of the abdomen and pelvis without contrast. Coronal and sagi ttal reconstructions obtained. Comparison: 05/31/2017, 01/14/2017 FINDINGS: The lung bases are clear, no pleural effusion. There is a 2.5 cm hypodensity within the right hepatic lobe anteriorly. There is prominent intra and extrahepatic biliary ductal dilatation including dilatation of the gallbladder. The common bile duct measures up to 1.3 cm. No definite cholelithiasis noted. The pancreas appears normal. The spleen is e nlarged at 17 cm. The adrenal glands appear normal. No bulky retroperitoneal lymphadenopathy. There i s however borderline No calcifications noted within the kidneys or along the courses of the ureters bilaterally. The colon is moderately distended. There appears to be abnormal communication between the sigmoid col on and the cecum concerning for a colo cecal fistula. Mild stranding is noted throughout the pelvis, however improved from the prior examination. There is also soft tissue extending from the dome of the bladder to the sigmoid colon concerning for a colovesicular fistula. No significant free pelvic flui d. No free air. No suspicious osseous abnormalities identified. IMPRESSION: 1. Prominent Intrahepatic and extrahepatic biliary ductal dilatation. 2. There is an indeterminate 2.5 cm hepatic hypodensity noted not definitively identified on the prev ious studies. 3. Splenomegaly. 4. 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 5. Possible colovesicular fistula. 6. Given the consolation of findings, correlate clinically for inflammatory bowel disease such as c erative colitis.
== END 2017-08-24 12:35 ==
LOC: MW.ED 09:36
DX: E80.6 Other disorders of bilirubin metabolism (principal); K51.913 Ulcerative colitis, unspecified with fistula; Z88.0 Allergy status to penicillin; Z79.899 Other long term (current) drug therapy
CPT/HCPCS: 71020; 74176; 80053; 82140; 82150; 83690; 84443; 85025; 85610; 86803; 93005; 96360; 99285; J7040; 36415; 99284

== ENCOUNTER 2017-09-06 11:05 | Emergency (ER) | payer MEDICARE, MEDICAID ==
[2017-09-06] MEDS ORDERED: Sodium Chloride 0.9% 1,000 ML IV ONE (11:34)
[2017-09-06] MEDS ORDERED: Ondansetron 4 MG/2 ML SDV IVPUSH ONE (11:34)
--- NOTE | 2017-09-06 11:44 | EDM.PDOC ---
ED HPI GENERAL MEDICAL PROBLEM - General Chief Complaint: Abdominal Pain Stated Complaint: vomiting and constipation Time Seen by Provider: 09/06/17 11:18 Source of Information: Reports: Patient, Other (RN emissions inspector ) History Limitations: Reports: No Limitations - History of Present Illness INITIAL COMMENTS - FREE TEXT/NARRATIVE: Presents to the ER with an RN from [facility]. The patient is independent but is on disability due to schizophrenia. His RN states that they set up his meds and make sure he takes them twice daily. Someone comes in to clean his house weekly. This patient has a approximately 2 month history of abdominal pain, jaundice and a 75 pound involuntary weight loss which has been worked up with a CT of the abdomen, MRI of the abdomen, 2 failed colonoscopies, extensive lab work both here and in [place]. No cause for his abdominal pain and jaundice was found. His statin was discontinued. His billirubin last week was around 10. He had an appointment with GI in [place] this morning which was canceled due to bad roads. It has been rescheduled for September 12. The patient states that he feels constipated and has not had a bowel movement for 3 days. Prior to that his bowel movements were soft and brown. He vomited once yesterday and once today. He has some left-sided abdominal pain. He has been drinking oral fluids. No fever, dysuria, chest pain, shortness of breath or upper respiratory symptoms. - Related Data Allergies Allergy/AdvReac Type Severity Reaction Status Date / Time iodine Allergy Itching Verified 09/06/17 11:18 Penicillins AdvReac Mild Itching Verified 09/06/17 11:18 Home Meds: Home Meds cloZAPine [Clozaril] 100 mg PO ACBREAKFAST 01/07/17 [History] Escitalopram [Lexapro] 30 mg PO DAILY 01/18/17 [History] cloZAPine [Clozaril] 300 mg PO BEDTIME 01/18/17 [History] Ferrous Sulfate [Iron] 325 mg PO BID 01/26/17 [History] Past Medical History HEENT History: Reports: Impaired Vision Other HEENT History: wears glasses Cardiovascular History: Reports: High Cholesterol Respiratory History: Reports: None Gastrointestinal History: Reports: None Genitourinary History: Reports: None Musculoskeletal History: Reports: None Neurological History: Reports: None Psychiatric History: Reports: Anxiety, Depression, Schizophrenia Other Psychiatric History: schizo-affective disorder, depressive type Endocrine/Metabolic History: Reports: Obesity/BMI 30+ Hematologic History: Reports: Anemia Immunologic History: Reports: None Oncologic (Cancer) History: Reports: None Dermatologic History: Reports: None - Infectious Disease History Infectious Disease History: Reports: Chicken Pox - Past Surgical History Head Surgeries/Procedures: Reports: None HEENT Surgical History: Reports: None Cardiovascular Surgical History: Reports: None GI Surgical History: Reports: Colonoscopy, EGD Male Surgical History: Reports: None Endocrine Surgical History: Reports: None Neurological Surgical History: Reports: None Musculoskeletal Surgical History: Reports: None Oncologic Surgical History: Reports: None Social & Family History - Family History Family Medical History: Noncontributory - Tobacco Use Smoking Status *Q: Never Smoker Years of Tobacco use: 22 Packs/Tins Daily: 0.5 Used Tobacco, but Quit: No Second Hand Smoke Exposure: No - Caffeine Use Caffeine Use: Reports: Coffee, Soda Caffeine Use Comment: 3 drinks.day - Alcohol Use Days Per Week of Alcohol Use: 0 - Recreational Drug Use Recreational Drug Use: No Drug Use in Last 12 Months: No ED ROS GENERAL - Review of Systems Review Of Systems: ROS reveals no pertinent complaints other than HPI. Constitutional: Denies: Fever ED EXAM, GI/ABD - Physical Exam Exam: See Below Exam Limited By: No Limitations General Appearance: Alert, No Apparent Distress Ears: Normal External Exam Nose: Normal Inspection Throat/Mouth: Normal Inspection Head: Atraumatic, Normocephalic Neck: Normal Inspection Respiratory/Chest: No Respiratory Distress, Lungs Clear, Normal Breath Sounds Cardiovascular: Normal Peripheral Pulses, Regular Rate, Rhythm, No Edema GI/Abdominal Exam: Normal Bowel Sounds, Soft, No Distention, Other (mild tender left mid and lower) Neurological: Alert, Oriented Psychiatric: Normal Affect, Normal Mood Skin Exam: Warm, Dry, Intact, No Rash, Jaundice Course - Vital Signs Last Recorded V/S: Last Vital Signs Temp 35.9 C 09/06/17 11:19 Pulse 118 H 09/06/17 11:19 Resp 18 09/06/17 11:19 BP 109/75 09/06/17 11:19 Pulse Ox 96 09/06/17 11:19 - Orders/Labs/Meds Orders: Active Orders 24 hr Category Date Time Status UA W/MICROSCOPIC [URIN] Stat Lab 09/06/17 11:33 Uncollected Sodium Chloride 0.9% [Normal Saline] 1,000 ml Med 09/06/17 11:34 Ordered IV STAT Medication Orders Sodium Chloride (Normal Saline) 1,000 mls @ 999 mls/hr IV STAT ONE Stop: 09/06/17 12:34 Last Admin: 09/06/17 11:44 Dose: 999 mls/hr Labs: Laboratory Tests 09/06/17 09/06/17 09/06/17 Range/Units 11:45 11:45 11:45 WBC 12.58 H (4.0-11.0) K/uL RBC 4.10 L (4.50-5.90) M/uL Hgb 11.3 L (13.0-17.0) g/dL Hct 34.1 L (38.0-50.0) % MCV 83.2 (80.0-98.0) fL MCH 27.6 (27.0-32.0) pg MCHC 33.1 (31.0-37.0) g/dL RDW Std Deviation 67.2 H (28.0-62.0) fl RDW Coeff of Lebron 22 H (11.0-15.0) % Plt Count 330 (150-400) K/uL MPV 10.90 (7.40-12.00) fL Neut % (Auto) 76.5 (48.0-80.0) % Lymph % (Auto) 12.8 L (16.0-40.0) % [place] % (Auto) 7.6 (0.0-15.0) % Eos % (Auto) 2.7 (0.0-7.0) % Baso % (Auto) 0.4 (0.0-1.5) % Neut # (Auto) 9.6 H (1.4-5.7) K/uL Lymph # (Auto) 1.6 (0.6-2.4) K/uL [place] # (Auto) 1.0 H (0.0-0.8) K/uL Eos # (Auto) 0.3 (0.0-0.7) K/uL Baso # (Auto) 0.1 (0.0-0.1) K/uL Nucleated RBC % 0.0 /100WBC Nucleated RBCs # 0 K/uL Sodium 139 (136-146) mmol/L Potassium 2.8 L (3.5-5.1) mmol/L Chloride 106 (98-110) mmol/L Carbon Dioxide 21 (21-31) mmol/L BUN 14 (6.0-23.0) mg/dL Creatinine 1.2 (0.6-1.5) mg/dL Est Cr Clr Drug Dosing 94.31 mL/min Estimated GFR (MDRD) > 60.0 ml/min Glucose 134 H (60-110) mg/dL Calcium 9.2 (8.8-10.8) mg/dL Total Bilirubin 17.9 H (0.1-1.5) mg/dL AST 41 H (5-40) IU/L ALT 39 (8-54) IU/L Alkaline Phosphatase 203 H (40-150) Total Protein 7.8 (6.0-8.0) g/dL Albumin 3.3 L (3.5-5.0) g/dL Globulin 4.5 H (2.0-3.5) g/dL Albumin/Globulin Ratio 0.73 Amylase 20 (10-90) U/L Lipase 10 (7-80) U/L Meds: Medications Generic Name Dose Route Start Last Admin Trade Name Freq PRN Reason Stop Dose Admin Sodium Chloride 1,000 mls @ 999 mls/hr 09/06/17 11:34 09/06/17 11:44 Normal Saline IV 09/06/17 12:34 999 mls/hr STAT ONE Administration Discontinued Medications Generic Name Dose Route Start Last Admin Trade Name Freq PRN Reason Stop Dose Admin Ondansetron HCl 4 mg 09/06/17 11:34 09/06/17 11:58 Zofran IVPUSH 09/06/17 11:35 4 mg ONETIME ONE Administration - Re-Assessments/Exams Free Text/Narrative Re-Assessment/Exam: 09/06/17 12:[address] Hall, hospitalist. This patient needs GI specialty and surgical api developer and thus will be transferred to [place]. Free Text/Narrative Re-Assessment/Exam: 09/06/17 14:[address] Zeb Lambert MD, [facility]. Including patient history , clinical course, labs, imaging. He will accept the patient in transfer. Delay in transfer due to weather/ambulance availability. IV fluids, K+ replacement, pain medication and Zofran provided in interim. Departure - Departure Time of Disposition: 14:22 Disposition: DC/Tfer to Acute Hospital 02 Condition: Fair Clinical Impression: Small bowel obstruction - Discharge Information Referrals: Rene Lambert MD [Primary Care Provider] - Forms: ED Department Discharge - My Orders Last 24 Hours: My Active Orders 09/06/17 11:33 UA W/MICROSCOPIC [URIN] Stat 09/06/17 11:34 Sodium Chloride 0.9% [Normal Saline] 1,000 ml IV STAT - Assessment/Plan Last 24 Hours: My Active Orders 09/06/17 11:33 UA W/MICROSCOPIC [URIN] Stat 09/06/17 11:34 Sodium Chloride 0.9% [Normal Saline] 1,000 ml IV STAT
--- NOTE | 2017-09-06 12:13 | CR ---
EXAMINATION: Abdomen HISTORY: Constipation COMPARISON: CT dated 08/24/2017 TECHNIQUE: AP and upright views obtained of the abdomen FINDINGS: There is no free air diaphragm. There are prominently dilated loops of small bowel measurin g up to 6.9 cm. There is also prominent gas within the right hemicolon. No gas projects over the sigm oid or rectal region. No abnormal calcifications. No organomegaly. Visualized osseous structures appe ar normal. IMPRESSION: 1. Dilated loops of small bowel likely representing a mechanical bowel obstruction. Given the gas wit hin the proximal colon a colonic obstruction is likely.
[2017-09-06 12:20] LABS: CHLORIDE,CL 106 mmol/L (98-110); SODIUM,NA 139 mmol/L (136-146)
[2017-09-06] MEDS ORDERED: Morphine 2 MG/ML Syringe IVPUSH ONE (13:05)
[2017-09-06] MEDS ORDERED: NS + KCl 20mEq/L 1,000 ML IV SCH (13:15)
[2017-09-06 13:34] VITALS: BP 108/69
== END 2017-09-06 14:57 ==
LOC: MW.ED 11:05
DX: K56.609 Unspecified intestinal obstruction, unspecified as to partial versus complete obstruction (principal); Z88.0 Allergy status to penicillin; Z79.899 Other long term (current) drug therapy
CPT/HCPCS: 36415; 74020; 80053; 82150; 83690; 85025; 96361; 96365; 96375; 99284; J2270; J2405; J3480; J7040

== ENCOUNTER 2017-11-28 11:40 | Inpatient (IN) | payer MEDICARE, MEDICAID ==
--- NOTE | 2017-11-28 12:43 | CR ---
EXAMINATION: Portable chest radiograph. HISTORY: Weakness. FINDINGS: The trachea is midline. The cardiomediastinal silhouette is within normal limits. No pulmonary infilt rates, effusions or pneumothorax. Accessory azygous fissure. A metallic ring projects over the right cardiophrenic angle, correlate for external device. Osseous structures appear unremarkable. IMPRESSION: No acute cardiopulmonary process.
[2017-11-28 12:49] LABS: CHLORIDE,CL 99 mmol/L (98-110)
[2017-11-28 12:50] LABS: SODIUM,NA 134 mmol/L (136-146)
--- NOTE | 2017-11-28 15:08 | US ---
EXAMINATION: Right upper quadrant ultrasound HISTORY: Pain COMPARISON: CT abdomen and pelvis without contrast dated 08/24/2017. TECHNIQUE: Grayscale and color Doppler images obtained of the right upper quadrant. FINDINGS: There is a probable 2 cm cyst noted within the right hepatic lobe. Otherwise the liver is n ormal in contour. Gallbladder wall thickness is borderline at 3 mm. A few mobile gallstones are noted . No pericholecystic fluid. Common bile duct is dilated up to 8 mm, however similar in appearance to the previous CT. The right kidney measures at least 11.7 cm [id number] without evidence hydronephro sis. IMPRESSION: 1. Prominence of the extrahepatic biliary ducts with the common bile duct measuring up to 8 mm. 2. Cholelithiasis without definite evidence of cholecystitis. 3. Probable cyst noted within the right hepatic lobe.
[2017-11-28] MEDS ORDERED: Levofloxacin/Dextrose 5%-Water 750 MG in Premix Bag 1 BAG IV ONE (15:24)
[2017-11-28] MEDS ORDERED: Sodium Chloride 0.9% 1,000 ML IV SCH ×3 (15:30→18:45)
--- NOTE | 2017-11-28 15:31 | EDM.PDOC ---
ED HPI GENERAL MEDICAL PROBLEM - General Chief Complaint: General Stated Complaint: WEAKNESS Time Seen by Provider: 11/28/17 15:30 Source of Information: Reports: Patient - History of Present Illness INITIAL COMMENTS - FREE TEXT/NARRATIVE: HISTORY AND PHYSICAL: History of present illness: [Patient presents with generalized weakness he has a history of schizophrenia and is on disability secondary to the psychiatric diagnosis. Today he has no other complaints outside of the generalized weakness have learned that he is recently been to [place] for ERCP and was ultimately diagnosed with it type of liver cancer. Have discussed the case with Dr. Butler he would be happy to round on the patient. Although currently patient has elevated white count lactic acid and the UTI will be admitting to rule out sepsis ] Review of systems: As per history of present illness and below otherwise all systems reviewed and negative. Past medical history: As per history of present illness and as reviewed below otherwise noncontributory. Surgical history: As per history of present illness and as reviewed below otherwise noncontributory. Social history: No reported history of drug or alcohol abuse. Family history: As per history of present illness and as reviewed below otherwise noncontributory. Physical exam: HEENT: Atraumatic, normocephalic, pupils reactive, negative for conjunctival pallor or scleral icterus, mucous membranes moist, throat clear, neck supple, nontender, trachea midline. Lungs: Clear to auscultation, breath sounds equal bilaterally, chest nontender. Heart: S1S2, regular, negative for clicks, rubs, or JVD. Abdomen: Soft, nondistended, nontender. Negative for masses or hepatosplenomegaly. Negative for costovertebral tenderness. Ostomy noted Pelvis: Stable nontender. Genitourinary: Deferred. Rectal: Deferred. Extremities: Atraumatic, negative for cords or calf pain. Neurovascular unremarkable. Neuro: Awake, alert, oriented. Cranial nerves II through XII unremarkable. Cerebellum unremarkable. Motor and sensory unremarkable throughout. Exam nonfocal. Diagnostics: [CBC CMP UA lactic acid ammonia level Ultrasound right upper quadrant CT abdomen pelvis ] Therapeutics: [Normal saline bolus Normal saline 1 50 mL per hour Levaquin 750 mg IV ] Impression: [Sepsis rule out UTI Liver cancer--unknown as to exact diagnoses Ostomy Patient admitted to hospitalist service consult surgery ] Definitive disposition and diagnosis as appropriate pending reevaluation and review of above. - Related Data Allergies Allergy/AdvReac Type Severity Reaction Status Date / Time iodine Allergy Itching Verified 11/28/17 12:36 Penicillins AdvReac Mild Itching Verified 11/28/17 12:36 Home Meds: Home Meds cloZAPine [Clozaril] 100 mg PO ACBREAKFAST 01/07/17 [History] Escitalopram [Lexapro] 30 mg PO DAILY 01/18/17 [History] cloZAPine [Clozaril] 300 mg PO BEDTIME 01/18/17 [History] Ferrous Sulfate [Iron] 2 tab PO BID 01/26/17 [History] Cholecalciferol (Vitamin D3) [Vitamin D3] 1,000 units PO DAILY 11/28/17 [History ] Enoxaparin [Lovenox] 1 injection SUBCUT ASDIRECTED 11/28/17 [History] Fenofibrate 160 mg PO DAILY 11/28/17 [History] Multivitamin [Multivitamins] 1 tab PO DAILY 11/28/17 [History] Omeprazole 20 mg PO DAILY 11/28/17 [History] PEG 3350/Na Sulf,Bicarb,Cl/KCl [Golytely] 1 dose PO ASDIRECTED 11/28/17 [History ] Past Medical History HEENT History: Reports: Impaired Vision Other HEENT History: wears glasses Cardiovascular History: Reports: High Cholesterol Respiratory History: Reports: None Gastrointestinal History: Reports: None Genitourinary History: Reports: None Musculoskeletal History: Reports: None Neurological History: Reports: None Psychiatric History: Reports: Anxiety, Depression, Schizophrenia Other Psychiatric History: schizo-affective disorder, depressive type Endocrine/Metabolic History: Reports: Obesity/BMI 30+ Hematologic History: Reports: Anemia Immunologic History: Reports: None Oncologic (Cancer) History: Reports: None Dermatologic History: Reports: None - Infectious Disease History Infectious Disease History: Reports: Chicken Pox - Past Surgical History Head Surgeries/Procedures: Reports: None HEENT Surgical History: Reports: None Cardiovascular Surgical History: Reports: None GI Surgical History: Reports: Colonoscopy, EGD Male Surgical History: Reports: None Endocrine Surgical History: Reports: None Neurological Surgical History: Reports: None Musculoskeletal Surgical History: Reports: None Oncologic Surgical History: Reports: None Social & Family History - Family History Family Medical History: Noncontributory - Tobacco Use Smoking Status *Q: Never Smoker Years of Tobacco use: 22 Packs/Tins Daily: 0.5 Used Tobacco, but Quit: No Second Hand Smoke Exposure: No - Caffeine Use Caffeine Use: Reports: Coffee, Soda Caffeine Use Comment: 3 drinks.day - Alcohol Use Days Per Week of Alcohol Use: 0 - Recreational Drug Use Recreational Drug Use: No Drug Use in Last 12 Months: No ED ROS GENERAL - Review of Systems Review Of Systems: ROS reveals no pertinent complaints other than HPI. ED EXAM, GENERAL - Physical Exam Exam: See Below Course - Orders/Labs/Meds Orders: Active Orders 24 hr Category Date Time Status EKG Documentation Completion [RC] STAT Care 11/28/17 11:47 Active AMMONIA VENOUS [CHEM] Stat Lab 11/28/17 15:16 Received CULTURE BLOOD [BC] Stat Lab 11/28/17 13:28 Received CULTURE BLOOD [BC] Stat Lab 11/28/17 14:01 Received Levofloxacin/Dextrose 5%-Water [Levaquin in D5W 750 MG/ Med 11/28/17 15:24 Active 150 ML] 750 mg Premix Bag 1 bag IV ONETIME Sodium Chloride 0.9% [Normal Saline] 1,000 ml Med 11/28/17 15:30 Active IV STAT Blood Culture x2 Reflex Set [OM.PC] Stat Oth 11/28/17 12:47 Ordered Medication Orders Levofloxacin/Dextrose 750 mg/ (Premix) 150 mls @ 100 mls/hr IV ONETIME ONE Stop: 11/28/17 16:53 Sodium Chloride (Normal Saline) 1,000 mls @ 125 mls/hr IV STAT CHLOE Labs: Laboratory Tests 11/28/17 11/28/17 11/28/17 Range/Units 12:05 12:05 12:05 WBC 18.44 H (4.0-11.0) K/uL RBC 3.87 L (4.50-5.90) M/uL Hgb 10.2 L (13.0-17.0) g/dL Hct 30.8 L (38.0-50.0) % MCV 79.6 L (80.0-98.0) fL MCH 26.4 L (27.0-32.0) pg MCHC 33.1 (31.0-37.0) g/dL RDW Std Deviation 47.3 (28.0-62.0) fl RDW Coeff of Lebron 16 H (11.0-15.0) % Plt Count 70 L (150-400) K/uL Add Manual Diff YES Neutrophils % (Manual) 64 (48.0-80.0) % Band Neutrophils % 19 % Lymphocytes % (Manual) 11 L (16.0-40.0) % Monocytes % (Manual) 6 (0.0-15.0) % Nucleated RBC % 0.0 /100WBC Absolute Seg Neuts 11.8 H (1.4-5.7) Band Neutrophils # 3.5 Lymphocytes # (Manual) 2.0 (0.6-2.4) Monocytes # (Manual) 1.1 H (0.0-0.8) Nucleated RBCs # 0 K/uL Lactate (0.20-2.00) mmol/L Sodium 134 L (136-146) mmol/L Potassium 2.9 L (3.5-5.1) mmol/L Chloride 99 (98-110) mmol/L Carbon Dioxide 21 (21-31) mmol/L BUN 26 H (6.0-23.0) mg/dL Creatinine 1.5 (0.6-1.5) mg/dL Est Cr Clr Drug Dosing TNP Estimated GFR (MDRD) 53.0 ml/min Glucose 90 (60-110) mg/dL Calcium 8.5 L (8.8-10.8) mg/dL Total Bilirubin 8.5 H (0.1-1.5) mg/dL AST 64 H (5-40) IU/L ALT 62 H (8-54) IU/L Alkaline Phosphatase 447 H (40-150) Troponin I < 0.10 (0.0-0.29) NG/ML Total Protein 5.9 L (6.0-8.0) g/dL Albumin 2.4 L (3.5-5.0) g/dL Globulin 3.5 (2.0-3.5) g/dL Albumin/Globulin Ratio 0.7 L (1.3-2.8) Amylase 14 (10-90) U/L Lipase < 9 (7-80) U/L Urine Color Urine Appearance Urine pH (5.0-8.0) Ur Specific [place] (1.001-1.035) Urine Protein (NEGATIVE) mg/dL Urine Glucose (UA) (NEGATIVE) mg/dL Urine Ketones (NEGATIVE) mg/dL Urine Occult Blood (NEGATIVE) Urine Nitrite (NEGATIVE) Urine Bilirubin (NEGATIVE) Urine Ictotest Urine Urobilinogen (<2.0) EU/dL Ur Leukocyte Esterase (NEGATIVE) Urine RBC (0-2/HPF) Urine WBC (0-5/HPF) Ur Epithelial Cells (NONE-FEW) Urine Bacteria (NEGATIVE) 11/28/17 11/28/17 Range/Units 13:55 14:35 WBC (4.0-11.0) K/uL RBC (4.50-5.90) M/uL Hgb (13.0-17.0) g/dL Hct (38.0-50.0) % MCV (80.0-98.0) fL MCH (27.0-32.0) pg MCHC (31.0-37.0) g/dL RDW Std Deviation (28.0-62.0) fl RDW Coeff of [place]bron (11.0-15.0) % Plt Count (150-400) K/uL Add Manual Diff Neutrophils % (Manual) (48.0-80.0) % Band Neutrophils % % Lymphocytes % (Manual) (16.0-40.0) % Monocytes % (Manual) (0.0-15.0) % Nucleated RBC % /100WBC Absolute Seg Neuts (1.4-5.7) Band Neutrophils # Lymphocytes # (Manual) (0.6-2.4) Monocytes # (Manual) (0.0-0.8) Nucleated RBCs # K/uL Lactate 2.2 H (0.20-2.00) mmol/L Sodium (136-146) mmol/L Potassium (3.5-5.1) mmol/L Chloride (98-110) mmol/L Carbon Dioxide (21-31) mmol/L BUN (6.0-23.0) mg/dL Creatinine (0.6-1.5) mg/dL Est Cr Clr Drug Dosing Estimated GFR (MDRD) ml/min Glucose (60-110) mg/dL Calcium (8.8-10.8) mg/dL Total Bilirubin (0.1-1.5) mg/dL AST (5-40) IU/L ALT (8-54) IU/L Alkaline Phosphatase (40-150) Troponin I (0.0-0.29) NG/ML Total Protein (6.0-8.0) g/dL Albumin (3.5-5.0) g/dL Globulin (2.0-3.5) g/dL Albumin/Globulin Ratio (1.3-2.8) Amylase (10-90) U/L Lipase (7-80) U/L Urine Color ORANGE Urine Appearance CLEAR Urine pH 5.0 (5.0-8.0) Ur Specific [place] 1.025 (1.001-1.035) Urine Protein 30 (NEGATIVE) mg/dL Urine Glucose (UA) 100 H (NEGATIVE) mg/dL Urine Ketones TRACE H (NEGATIVE) mg/dL Urine Occult Blood NEGATIVE (NEGATIVE) Urine Nitrite POSITIVE H (NEGATIVE) Urine Bilirubin LARGE H (NEGATIVE) Urine Ictotest POSITIVE Urine Urobilinogen 1.0 (<2.0) EU/dL Ur Leukocyte Esterase TRACE (NEGATIVE) Urine RBC 0-1 (0-2/HPF) Urine WBC 0-2 (0-5/HPF) Ur Epithelial Cells OCCASIONAL (NONE-FEW) Urine Bacteria 2+ H (NEGATIVE) Meds: Medications Generic Name Dose Route Start Last Admin Trade Name Freq PRN Reason Stop Dose Admin Levofloxacin/Dextrose 750 mg/ 150 mls @ 100 mls/hr 11/28/17 15:24 Premix IV 11/28/17 16:53 ONETIME ONE Sodium Chloride 1,000 mls @ 125 mls/hr 11/28/17 15:30 Normal Saline IV STAT CHLOE Departure - Departure Time of Disposition: 15:38 Disposition: Admitted As Inpatient 66 Condition: Poor Clinical Impression: Generalized weakness - Discharge Information Referrals: PCP,None [Primary Care Provider] - Forms: ED Department Discharge - My Orders Last 24 Hours: My Active Orders 11/28/17 11:47 EKG Documentation Completion [RC] STAT 11/28/17 12:47 Blood Culture x2 Reflex Set [OM.PC] Stat 11/28/17 13:28 CULTURE BLOOD [BC] Stat 11/28/17 14:01 CULTURE BLOOD [BC] Stat 11/28/17 15:16 AMMONIA VENOUS [CHEM] Stat 11/28/17 15:24 Levofloxacin/Dextrose 5%-Water [Levaquin in D5W 750 MG/150 ML] 750 mg Premix Bag 1 bag IV ONETIME 11/28/17 15:30 Sodium Chloride 0.9% [Normal Saline] 1,000 ml IV STAT - Assessment/Plan Last 24 Hours: My Active Orders 11/28/17 11:47 EKG Documentation Completion [RC] STAT 11/28/17 12:47 Blood Culture x2 Reflex Set [OM.PC] Stat 11/28/17 13:28 CULTURE BLOOD [BC] Stat 11/28/17 14:01 CULTURE BLOOD [BC] Stat 11/28/17 15:16 AMMONIA VENOUS [CHEM] Stat 11/28/17 15:24 Levofloxacin/Dextrose 5%-Water [Levaquin in D5W 750 MG/150 ML] 750 mg Premix Bag 1 bag IV ONETIME 11/28/17 15:30 Sodium Chloride 0.9% [Normal Saline] 1,000 ml IV STAT
--- NOTE | 2017-11-28 15:35 | CT ---
CT of the abdomen and pelvis without contrast. HISTORY: Pain TECHNIQUE: Axial CT images were obtained of the abdomen and pelvis without contrast. Coronal and sagi ttal reconstructions obtained. Moderate motion artifact is noted. Comparison: 08/24/2017. FINDINGS: The lung bases are clear, no pleural effusion. The liver, adrenal glands, and pancreas appear unremarkable for noncontrast examination. The spleen is prominent in size at 17.6 cm. The gallbladder appears normal. There is a stent present within the common bile ducts. There is no bulky retroperitoneal lymphadenopathy. No abdominal ascites. There is a pigtail catheter within the soft tissues of the left flank without an underlying fluid collection. There are no calcifications noted within the kidneys or along the courses of the ureters bilaterally. The large and small bowel are normal in caliber without definite evidence of obstruction. There is n o bulky pelvic lymphadenopathy. There is a right lower quadrant colostomy with a small parastomal her miriam containing bowel. There is thickening of the urinary bladder along the superior aspect with soft tissue extending toward to dictation bowel. No air is noted within the urinary bladder. No significan t free pelvic fluid. Few borderline inguinal lymph nodes are noted. No bulky pelvic lymphadenopathy. The visualized osseous structures appear normal. IMPRESSION: 1. 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 2. Thickening of the fundus of the urinary bladder was soft tissue extending towards the adjacent bow el. Given the appearance of a enterovesicular fistula cannot be excluded. 3. Biliary stent is noted. 4. Splenomegaly. 5. Pigtail catheter within the soft tissues of the left flank without a visualized fluid collection. 6. Motion obscures evaluation of the upper abdomen.
[2017-11-28] MEDS ORDERED: Sodium Chloride 0.9% 1,000 ML IV ONE ×2 (17:05→23:54)
[2017-11-28] MEDS ORDERED: Acetaminophen 325 MG Tab PO PRN (17:11)
[2017-11-28] MEDS ORDERED: Sodium Chloride 0.9% 2.5 ML Syringe FLUSH PRN (17:11)
[2017-11-28] MEDS ORDERED: Morphine 2 MG/ML Syringe IVPUSH PRN (17:11)
[2017-11-28] MEDS ORDERED: Sodium Chloride 0.9% 10 ML Syringe FLUSH PRN (17:11)
[2017-11-28] MEDS ORDERED: Ondansetron 4 MG/2 ML SDV IVPUSH PRN (17:11)
--- NOTE | 2017-11-28 17:27 | PCM.SN ---
- Free Text/Narrative Note: At beside at 1720 with patient. Discussed with him his recent diagnosis. He states he knows he has pancreatic cancer and it has spread to multiple areas. He also states that they told him that they could not do anything for him at this point. When discussing code status he states that he believes in [place] and that he will take care of things so he would not like CPR or Intubation if his heart were to stop or he were to stop breathing. I explained that this means that I will do everything possible to prevent such and episode from happening but if I will honor his wishes and place him DNR/DNI at this time.
[2017-11-28] MEDS ORDERED: Potassium Chloride 20 MEQ Tab.ER PO ONE (17:44)
--- NOTE | 2017-11-28 17:54 | PCM.HP ---
H&P History of Present Illness - General Date of Service: 11/28/17 Admit Problem/Dx: Admission Diagnosis/Problem Admission Diagnosis/Problem UTI (urinary tract infection) due to urinary indwelling catheter Source of Information: Patient History Limitations: Reports: Altered Mental Status - History of Present Illness Initial Comments - Free Text/Narative: This is a 37-year-old male with a history of schizophrenia who is presenting for generalized weakness. Patient is visibly jaundiced and altered slightly. I spoke with Dr. Skip Butler who knows the patient well and states that he has pancreatic cancer with metastasis to the liver which likely accounts for the patient's elevated LFTs and alk phosphatase levels. She has had multiple procedures in [place] as well as [place] where he had an ostomy bag placed. We will be trying to obtain the records from [place] and [place] to see exactly what has been done with the patient. Patient is also presenting with a elevated white blood cell count of greater than 18. Patient's lactic acid level is 2.2 indicating sepsis likely secondary to UTI infection due to a urine analysis that is indicating a UTI process. Patient also has hypokalemia, LFTs, elevated bilirubin level, elevated alk phosphatase level. In the ER the patient received a bolus of normal saline 1 L, Levaquin, 2 blood cultures and a urine culture were drawn. - Related Data Allergies/Adverse Reactions: Allergies Allergy/AdvReac Type Severity Reaction Status Date / Time iodine Allergy Itching Verified 11/28/17 12:36 Penicillins AdvReac Mild Itching Verified 11/28/17 12:36 Home Medications: Home Meds cloZAPine [Clozaril] 100 mg PO ACBREAKFAST 01/07/17 [History] Escitalopram [Lexapro] 30 mg PO DAILY 01/18/17 [History] cloZAPine [Clozaril] 300 mg PO BEDTIME 01/18/17 [History] Ferrous Sulfate [Iron] 2 tab PO BID 01/26/17 [History] Cholecalciferol (Vitamin D3) [Vitamin D3] 1,000 units PO DAILY 11/28/17 [History ] Enoxaparin [Lovenox] 1 injection SUBCUT ASDIRECTED 11/28/17 [History] Fenofibrate 160 mg PO DAILY 11/28/17 [History] Multivitamin [Multivitamins] 1 tab PO DAILY 11/28/17 [History] Omeprazole 20 mg PO DAILY 11/28/17 [History] PEG 3350/Na Sulf,Bicarb,Cl/KCl [Golytely] 1 dose PO ASDIRECTED 11/28/17 [History ] Past Medical History HEENT History: Reports: Impaired Vision Other HEENT History: wears glasses Cardiovascular History: Reports: High Cholesterol Respiratory History: Reports: None Gastrointestinal History: Reports: Jaundice Genitourinary History: Reports: None Musculoskeletal History: Reports: None Neurological History: Reports: None Psychiatric History: Reports: Anxiety, Depression, Schizophrenia Other Psychiatric History: schizo-affective disorder, depressive type Endocrine/Metabolic History: Reports: Obesity/BMI 30+ Hematologic History: Reports: Anemia Immunologic History: Reports: None Oncologic (Cancer) History: Reports: Liver Dermatologic History: Reports: None - Infectious Disease History Infectious Disease History: Reports: Chicken Pox - Past Surgical History Head Surgeries/Procedures: Reports: None HEENT Surgical History: Reports: None Cardiovascular Surgical History: Reports: None GI Surgical History: Reports: Colonoscopy, EGD Male Surgical History: Reports: None Endocrine Surgical History: Reports: None Neurological Surgical History: Reports: None Musculoskeletal Surgical History: Reports: None Oncologic Surgical History: Reports: None Social & Family History - Family History Family Medical History: Noncontributory - Tobacco Use Smoking Status *Q: Former Smoker Years of Tobacco use: 22 Packs/Tins Daily: 0.5 Used Tobacco, but Quit: Yes Month Tobacco Last Used: unrecalled Second Hand Smoke Exposure: No - Caffeine Use Caffeine Use: Reports: Coffee, Soda Caffeine Use Comment: 3 drinks.day - Alcohol Use Days Per Week of Alcohol Use: 0 - Recreational Drug Use Recreational Drug Use: No Drug Use in Last 12 Months: No H&P Review of Systems - Review of Systems: Review Of Systems: ROS reveals no pertinent complaints other than HPI. Exam - Exam Exam: See Below - Vital Signs Vital Signs: Last Vital Signs Temp 38.8 C H 11/28/17 17:00 Pulse 97 11/28/17 17:00 Resp 22 H 11/28/17 17:00 BP 84/29 L 11/28/17 17:00 Pulse Ox 97 11/28/17 17:00 Weight: 131.088 kg - Exam Quality Assessment: Supplemental Oxygen General: Alert, Cooperative, Moderate Distress, Other (Patient appears to be jaundiced throughout his body) HEENT: Scleral Icterus Neck: Supple Lungs: Decreased Breath Sounds Cardiovascular: Regular Rate, Regular Rhythm GI/Abdominal Exam: Other (Patient has a colostomy bag on the right, hepatomegaly , a protuberant abdomen) - Patient Data Result Diagrams: 11/28/17 12:05 11/28/17 12:05 *Q Meaningful Use (ADM) - VTE *Q VTE Criteria *Q: - Stroke *Q Stroke Criteria *Q: - AMI *Q AMI Criteria *Q: - Problem List (1) Pancreatic cancer metastasized to liver SNOMED Code(s): 199939843 ICD Code: C25.9 - MALIGNANT NEOPLASM OF PANCREAS, UNSPECIFIED; C78.7 - SECONDARY MALIG NEOPLASM OF LIVER AND INTRAHEPATIC BILE DUCT Status: Acute Current Visit: Yes (2) Generalized weakness SNOMED Code(s): 61112793 ICD Code: R53.1 - WEAKNESS Status: Acute Current Visit: Yes (3) Anemia SNOMED Code(s): 767410951 ICD Code: D64.9 - ANEMIA, UNSPECIFIED Status: Acute Current Visit: No (4) Hyperbilirubinemia SNOMED Code(s): 96450980 ICD Code: E80.6 - OTHER DISORDERS OF BILIRUBIN METABOLISM Status: Acute Current Visit: No Problem List Initiated/Reviewed/Updated: Yes Orders Last 24hrs: Active Orders 24 hr Category Date Time Status Patient Status [ADT] Routine ADT 11/28/17 17:11 Active Antiembolic Devices [RC] PER UNIT ROUTINE Care 11/28/17 17:15 Active Cardiac Monitoring [RC] Q8H Care 11/28/17 17:14 Active Height and Weight [RC] UPON Care 11/28/17 17:11 Active Intake and Output [RC] QSHIFT Care 11/28/17 17:14 Active Notify Provider Consults [RC] ASDIRECTED Care 11/28/17 17:19 Active Oxygen Therapy [RC] PRN Care 11/28/17 17:11 Active Pulse Oximetry [RC] PRN Care 11/28/17 17:14 Active Up With Assistance [RC] ASDIRECTED Care 11/28/17 17:11 Active Urinary Catheter Assessment [RC] ASDIRECTED Care 11/28/17 17:11 Active VTE/DVT Education [RC] PER UNIT ROUTINE Care 11/28/17 17:11 Active Vital Signs [RC] Q4H Care 11/28/17 17:11 Active Consult to Physician [CONS] Routine Cons 11/28/17 17:11 Active Regular Diet [DIET] Diet 11/28/17 Breakfast Active CBC WITH AUTO DIFF [HEME] AM Lab 11/29/17 05:11 Ordered COMPREHENSIVE METABOLIC PN,CMP [CHEM] AM Lab 11/29/17 05:11 Ordered CULTURE BLOOD [BC] Routine Lab 11/28/17 17:07 Ordered CULTURE BLOOD [BC] Routine Lab 11/28/17 17:08 Ordered CULTURE URINE [RM] Stat Lab 11/28/17 14:38 Received INR,PT,PROTHROMBIN TIME [COAG] AM Lab 11/29/17 05:11 Ordered LACTIC ACID,WHOLE BLOOD [BG] Q4H Lab 11/28/17 17:11 Stop Req LACTIC ACID,WHOLE BLOOD [BG] Q4H Lab 11/28/17 17:55 Ordered LACTIC ACID,WHOLE BLOOD [BG] Q4H Lab 11/28/17 21:11 Stop Req LACTIC ACID,WHOLE BLOOD [BG] Q4H Lab 11/28/17 21:55 Ordered LACTIC ACID,WHOLE BLOOD [BG] Q4H Lab 11/29/17 01:55 Ordered LACTIC ACID,WHOLE BLOOD [BG] Q4H Lab 11/29/17 05:55 Ordered MAGNESIUM [CHEM] AM Lab 11/29/17 05:11 Ordered MAGNESIUM [CHEM] Routine Lab 11/28/17 17:36 Received VANCOMYCIN TROUGH [CHEM] Routine Lab 11/29/17 17:30 Ordered Acetaminophen [Tylenol] Med 11/28/17 17:11 Active 650 mg PO Q4H PRN Levofloxacin/Dextrose 5%-Water [Levaquin in D5W 750 MG/ Med 11/28/17 18:30 Active 150 ML] 750 mg Premix Bag 1 bag IV Q24H Morphine Med 11/28/17 17:11 Active 2 mg IVPUSH Q4H PRN Ondansetron [Zofran] Med 11/28/17 17:11 Active 4 mg IVPUSH Q4H PRN Piperacillin/Tazobactam [Piperacil-Tazobact] 4.5 gm Med 11/28/17 17:45 Active Sodium Chloride 0.9% [Normal Saline] 100 ml IV Q6H Potassium Chloride [Klor-Con M20] Med 11/28/17 17:44 Once 40 meq PO ONETIME ONE Sodium Chloride 0.9% [Normal Saline] 1,000 ml Med 11/28/17 17:05 Active IV .Bolus Sodium Chloride 0.9% [Normal Saline] 1,000 ml Med 11/28/17 17:15 Active IV ASDIRECTED Sodium Chloride 0.9% [Saline Flush] Med 11/28/17 17:11 Active 10 ml FLUSH ASDIRECTED PRN Sodium Chloride 0.9% [Saline Flush] Med 11/28/17 17:11 Active 2.5 ml FLUSH ASDIRECTED PRN Sodium Chloride 0.9% with KCl [Normal Saline with 40 Med 11/28/17 17:45 Ordered mEq KCl] 1,000 ml IV ASDIRECTED Vancomycin 1,500 mg Med 11/28/17 18:30 Active Sodium Chloride 0.9% [Normal Saline] 500 ml IV Q8H Vancomycin Pharmacy to Dose [Pharmacy to Dose - Med 11/28/17 17:15 Active Vancomycin] 1 dose .XX ASDIRECTED Peripheral IV Insertion Adult [OM.PC] Routine Oth 11/28/17 17:11 Ordered Saline Lock Insert [OM.PC] Routine Oth 11/28/17 17:11 Ordered Sequential Compression Device [OM.PC] Per Unit Routine Oth 11/28/17 17:14 Ordered Code Status [Resuscitation Status] Routine Resus Stat 11/28/17 17:24 Ordered Medication Orders Acetaminophen (Tylenol) 650 mg PO Q4H PRN PRN Reason: Pain (Mild 1-3)/fever Sodium Chloride (Normal Saline) 1,000 mls @ 125 mls/hr IV STAT [facility]LOE Last Infusion: 11/28/17 17:34 Dose: 0 mls/hr Admin: 11/28/17 15:50 Dose: 125 mls/hr Piperacillin Sod/Tazobactam (Sod 4.5 gm/ Sodium Chloride) 100 mls @ 100 mls/hr IV Q6H [facility] Sodium Chloride (Normal Saline) 1,000 mls @ 999 mls/hr IV .Bolus ONE Stop: 11/28/17 18:05 Last Admin: 11/28/17 17:33 Dose: 999 mls/hr Sodium Chloride (Normal Saline) 1,000 mls @ 125 mls/hr IV ASDIRECTED [facility] Vancomycin HCl 1,500 mg/ (Sodium Chloride) 500 mls @ 250 mls/hr IV Q8H [facility] Levofloxacin/Dextrose 750 mg/ (Premix) 150 mls @ 100 mls/hr IV Q24H [facility] Potassium Chloride/Sodium Chloride (Normal Saline With 40 Meq Kcl) 1,000 mls @ 150 mls/hr IV ASDIRECTED [facility]LOE Stop: 11/30/17 00:24 Morphine Sulfate (Morphine) 2 mg IVPUSH Q4H PRN PRN Reason: Pain (severe 7-10) Stop: 11/29/17 17:15 Ondansetron HCl (Zofran) 4 mg IVPUSH Q4H PRN PRN Reason: Nausea/Vomiting Potassium Chloride (Klor-Con M20) 40 meq PO ONETIME ONE Stop: 11/28/17 17:45 Sodium Chloride (Saline Flush) 10 ml FLUSH ASDIRECTED PRN PRN Reason: Keep Vein Open Sodium Chloride (Saline Flush) 2.5 ml FLUSH ASDIRECTED PRN PRN Reason: Keep Vein Open Vancomycin HCl (Pharmacy To Dose - Vancomycin) 1 dose .XX ASDIRECTED [facility] Assessment/Plan Comment:: This is a 37-year-old male with a history of schizophrenia and likely pancreatic cancer presenting with weakness and jaundice with elevated LFTs, WBC , elevated lactic acid level indicating sepsis secondary to urinary tract infection complicated by a metastatic pancreatic cancer diagnosis. Assessment/plan #1. Leukocytosis with WBC count of greater than 18 primarily neutrophilic in nature, elevated lactic acid level likely secondary to urinary tract infection causing sepsis. #2. Anemia, weakness likely secondary to #1 and diagnosis of pancreatic metastatic cancer to the liver. #3. Elevated LFTs, bilirubin, alk phosphatase secondary to pancreatic metastatic cancer to the liver. #4. Ostomy bag likely secondary to procedure for pancreatic metastatic cancer shall find out from [place]. #5. Abnormal electrolyte of hypokalemia of 2.9 For the urinary tract infection causing sepsis we shall be placing the patient on vancomycin, Zosyn, Levaquin for antibiotic coverage until the urinary culture comes back as well as blood cultures come back. Shall continue to follow the lactic acid level to ensure that it goes back within normal limits and the patient has no longer in the sepsis situation. We shall be getting in touch with [place] and [place] in regards to patient's medical record to assess what has and has not been done for the patient. We have also spoken with Dr. Skip Butler who shall be consulted as he knows the patient and has dealt with him in the past so that we can get a second opinion from a general surgery standpoint. For the patient's hypokalemia the patient is to receive 80 mEq of IV fluids over the course of the next 24 hours to ensure that his electrolytes come back within normal limits. We shall continue to monitor the patient. Dr. Loera has spoken to the patient and the patient has indicated that he would like to be DNR/DNI. As the patient stated that "let God decide what to do." Patient is admitted to inpatient anticipated length of stay is greater than 2 midnights
[2017-11-28] MEDS: Sodium Chloride 0.9% with KCl 1,000 ML IV SCH (18:03)
[2017-11-28] MEDS: Piperacillin/Tazobactam 4.5 GM in Sodium Chloride 0.9% 100 ML IV SCH ×2 (18:06→23:46)
[2017-11-28] MEDS: Levofloxacin/Dextrose 5%-Water 750 MG in Premix Bag 1 BAG IV SCH (18:43)
--- NOTE | 2017-11-28 18:56 | PCM.SN ---
- Free Text/Narrative Note: Mother of patient with son at 1845. I discussed with her his decision to be DNR /DNI secondary to his recent diagnosis of stage 4 pancreatic cancer. I made her aware that I would honor his wishes. She is in understanding and agreeable.
[2017-11-28] MEDS ORDERED: Magnesium Sulfate/Water 4 GM in Premix Bag 1 BAG IV ONE (19:23)
[2017-11-29] MEDS: Sodium Chloride 0.9% 1,000 ML IV SCH ×4 (01:40→20:34)
[2017-11-29] MEDS: Sodium Chloride 0.9% with KCl 1,000 ML IV SCH (01:44)
[2017-11-29] MEDS: Piperacillin/Tazobactam 4.5 GM in Sodium Chloride 0.9% 100 ML IV SCH ×4 (05:14→23:46)
[2017-11-29 06:03] LABS: CHLORIDE,CL 106 mmol/L (98-110); SODIUM,NA 135 mmol/L (136-146)
[2017-11-29] MEDS ORDERED: Calcium Carbonate 500 MG Tab.Chew PO ONE ×2 (10:53→11:15)
[2017-11-29] MEDS ORDERED: Sodium Chloride 0.9% with KCl 1,000 ML IV SCH (11:00)
[2017-11-29] MEDS ORDERED: Sodium Chloride 0.9% 1,000 ML IV ONE (15:52)
[2017-11-29] MEDS: Albuterol/Ipratropium 3.0-0.5 MG/3 ML Neb Soln NEB SCH ×3 (16:59→23:46)
[2017-11-29] MEDS ORDERED: Lidocaine 2% 5 ML SDV ONE (17:09)
[2017-11-29] MEDS ORDERED: Levofloxacin/Dextrose 5%-Water 750 MG in Premix Bag 1 BAG IV SCH (17:30)
[2017-11-29] MEDS: Levofloxacin/Dextrose 5%-Water 750 MG in Premix Bag 1 BAG IV SCH (18:08)
--- NOTE | 2017-11-29 20:12 | PCM.SN ---
- Free Text/Narrative Note: Central Venous Catheter (CVC, Central Line) Placement Date: 11/29/17 Indication: Intravenous access Attending: Dave Loera MD A time-out was completed verifying correct patient, procedure, site, positioning , and special equipment if applicable. The patient was placed in trendelenburg position. The patients right neck was prepped and draped in sterile fashion. 1 % Lidocaine was used to anesthetize the surrounding skin area. Right IJ was cannulated under ultrasound guidance with no difficulty and blood was verified to be nopulsitile and venous. Guide wire was inserted through needle and advanced slowly. At 8 cm guide wire was stopped and was not able to be advanced further. Secondary to inability to easily advance guidewire central line was abandoned. Direct pressure was held at site of cannulation for greater than 5 minutes and area was reacessed with no significant continued bleeding or hematoma formation. Site was covered in sterile dressing and CXR was ordered and confirmed that no evidence of hemothorax. Estimated Blood Loss: 10 ml The patient tolerated the procedure well. Secondary to above surgery was consulted for possible central line placement.
--- NOTE | 2017-11-29 20:12 | PCM.SN ---
- Free Text/Narrative Note: ARTERIAL LINE (A-Line) PLACEMENT Date: 11/29/17 Indication: Hemodynamic monitoring Attending: Dave Loera MD A time-out was completed verifying correct patient, procedure, site, positioning , and special equipment if applicable. Allens test was performed to ensure adequate perfusion. The patients left wrist was prepped and draped in sterile fashion. 1% Lidocaine was used to anesthetize the area. A 20G Arrow arterial line was introduced into the radial artery. The catheter was threaded over the guide wire and the needle was removed with appropriate pulsatile blood return. The catheter was then secured in place to the skin and a sterile dressing applied. Perfusion to the extremity distal to the point of catheter insertion was checked and found to be adequate. Estimated Blood Loss: 3 ml The patient tolerated the procedure well and there were no complications.
--- NOTE | 2017-11-29 20:35 | PCM.PN ---
- General Info Date of Service: 11/29/17 Subjective Update: Patient's maps and blood pressures have been varying throughout the day today, he has been given multiple boluses of fluids to help resuscitate and maintain his mean arterial pressures above 65. He has been making adequate urine at this point in time. However because of the fluctuation in his blood pressures despite fluid resuscitation decision was made to place the patient in the ICU and place an arterial line as well as a possible central line in place. - Review of Systems General: Reports: Weakness Gastrointestinal: Reports: Abdominal Pain - Patient Data Vitals - Most Recent: Last Vital Signs Temp 37.3 C 11/29/17 17:00 Pulse 129 H 11/29/17 19:00 Resp 28 H 11/29/17 19:00 BP 94/38 L 11/29/17 19:00 Pulse Ox 98 11/29/17 19:00 Weight - Most Recent: 131.088 kg I&O - Last 24 Hours: Intake & Output 11/29/17 11/29/17 11/29/17 06:59 14:59 22:59 Intake Total 3000 1100 1119 Output Total 2200 900 Balance 800 1100 219 Lab Results Last 24 Hours: Laboratory Results - last 24 hr 11/28/17 11/29/17 11/29/17 Range/Units 21:59 05:21 05:21 WBC 21.95 H (4.0-11.0) K/uL RBC 3.35 L (4.50-5.90) M/uL Hgb 8.7 L (13.0-17.0) g/dL Hct 27.0 L (38.0-50.0) % MCV 80.6 (80.0-98.0) fL MCH 26.0 L (27.0-32.0) pg MCHC 32.2 (31.0-37.0) g/dL RDW Std Deviation 48.8 (28.0-62.0) fl RDW Coeff of Lebron 17 H (11.0-15.0) % Plt Count 41 L (150-400) K/uL Add Manual Diff YES Neutrophils % (Manual) 72 (48.0-80.0) % Band Neutrophils % 15 % Lymphocytes % (Manual) 8 L (16.0-40.0) % Monocytes % (Manual) 5 (0.0-15.0) % Nucleated RBC % 0.0 /100WBC Absolute Seg Neuts 15.8 H (1.4-5.7) Band Neutrophils # 3.3 Lymphocytes # (Manual) 1.8 (0.6-2.4) Monocytes # (Manual) 1.1 H (0.0-0.8) Nucleated RBCs # 0 K/uL INR 1.23 ABG pH (7.35-7.45) ABG pCO2 (35-45) mmHG ABG pO2 (75-100) mmHG ABG HCO3 (22-26) mEq/L ABG Total CO2 ABG Base Excess (-2.0-2.0) Lactate 1.0 (0.20-2.00) mmol/L Sodium (136-146) mmol/L Potassium (3.5-5.1) mmol/L Chloride (98-110) mmol/L Carbon Dioxide (21-31) mmol/L BUN (6.0-23.0) mg/dL Creatinine (0.6-1.5) mg/dL Est Cr Clr Drug Dosing mL/min Estimated GFR (MDRD) ml/min Glucose (60-110) mg/dL Calcium (8.8-10.8) mg/dL Magnesium (1.5-2.3) mEq/L Total Bilirubin (0.1-1.5) mg/dL AST (5-40) IU/L ALT (8-54) IU/L Alkaline Phosphatase (40-150) Total Protein (6.0-8.0) g/dL Albumin (3.5-5.0) g/dL Globulin (2.0-3.5) g/dL Albumin/Globulin Ratio (1.3-2.8) 11/29/17 11/29/17 11/29/17 Range/Units 05:21 20:10 20:10 WBC (4.0-11.0) K/uL RBC (4.50-5.90) M/uL Hgb (13.0-17.0) g/dL Hct (38.0-50.0) % MCV (80.0-98.0) fL MCH (27.0-32.0) pg MCHC (31.0-37.0) g/dL RDW Std Deviation (28.0-62.0) fl RDW Coeff of Lebron (11.0-15.0) % Plt Count (150-400) K/uL Add Manual Diff Neutrophils % (Manual) (48.0-80.0) % Band Neutrophils % % Lymphocytes % (Manual) (16.0-40.0) % Monocytes % (Manual) (0.0-15.0) % Nucleated RBC % /100WBC Absolute Seg Neuts (1.4-5.7) Band Neutrophils # Lymphocytes # (Manual) (0.6-2.4) Monocytes # (Manual) (0.0-0.8) Nucleated RBCs # K/uL INR ABG pH 7.364 (7.35-7.45) ABG pCO2 30 L (35-45) mmHG ABG pO2 114 H (75-100) mmHG ABG HCO3 17 L (22-26) mEq/L ABG Total CO2 15.8 ABG Base Excess -7.4 L (-2.0-2.0) Lactate 0.7 (0.20-2.00) mmol/L Sodium 135 L (136-146) mmol/L Potassium 3.3 L (3.5-5.1) mmol/L Chloride 106 (98-110) mmol/L Carbon Dioxide 18 L (21-31) mmol/L BUN 24 H (6.0-23.0) mg/dL Creatinine 1.2 (0.6-1.5) mg/dL Est Cr Clr Drug Dosing 98.94 mL/min Estimated GFR (MDRD) > 60.0 ml/min Glucose 74 (60-110) mg/dL Calcium 7.3 L (8.8-10.8) mg/dL Magnesium 1.7 (1.5-2.3) mEq/L Total Bilirubin 8.7 H (0.1-1.5) mg/dL AST 72 H (5-40) IU/L ALT 50 (8-54) IU/L Alkaline Phosphatase 318 H (40-150) Total Protein 5.0 L (6.0-8.0) g/dL Albumin 2.0 L (3.5-5.0) g/dL Globulin 3.0 (2.0-3.5) g/dL Albumin/Globulin Ratio 0.7 L (1.3-2.8) Erick Results Last 24 Hours: Microbiology 11/28/17 17:36 Aerobic Blood Culture - Preliminary Blood Anaerobic Blood Culture - Preliminary 11/28/17 17:30 Aerobic Blood Culture - Preliminary Blood Anaerobic Blood Culture - Final Med Orders - Current: Current Medications Acetaminophen (Tylenol) 650 mg PO Q4H PRN PRN Reason: Pain (Mild 1-3)/fever Last Admin: 11/28/17 20:15 Dose: 650 mg Albuterol/Ipratropium (Duoneb 3.0-0.5 Mg/3 Ml) 3 ml NEB Q4HRRT [facility] Last Admin: 11/29/17 17:58 Dose: 3 ml Piperacillin Sod/Tazobactam (Sod 4.5 gm/ Sodium Chloride) 100 mls @ 100 mls/hr IV Q6H [facility] Last Admin: 11/29/17 17:07 Dose: 100 mls/hr Levofloxacin/Dextrose 750 mg/ (Premix) 150 mls @ 100 mls/hr IV Q24H [facility] Last Admin: 11/29/17 18:08 Dose: 100 mls/hr Vancomycin HCl 1,500 mg/ (Sodium Chloride) 500 mls @ 250 mls/hr IV Q8H [facility] Last Admin: 11/29/17 20:12 Dose: 250 mls/hr Sodium Chloride (Normal Saline) 1,000 mls @ 150 mls/hr IV ASDIRECTED [facility] Last Admin: 11/29/17 08:39 Dose: 150 mls/hr Sodium Chloride (Normal Saline) 1,000 mls @ 999 mls/hr IV ASDIRECTED [facility] Last Admin: 11/29/17 19:35 Dose: 999 mls/hr Ondansetron HCl (Zofran) 4 mg IVPUSH Q4H PRN PRN Reason: Nausea/Vomiting Sodium Chloride (Saline Flush) 10 ml FLUSH ASDIRECTED PRN PRN Reason: Keep Vein Open Sodium Chloride (Saline Flush) 2.5 ml FLUSH ASDIRECTED PRN PRN Reason: Keep Vein Open Vancomycin HCl (Pharmacy To Dose - Vancomycin) 1 dose .XX ASDIRECTED [facility] Discontinued Medications Calcium Carbonate/Glycine (Tums) 1,000 mg PO ONETIME ONE Stop: 11/29/17 10:54 Last Admin: 11/29/17 11:17 Dose: 1,000 mg Calcium Carbonate/Glycine (Tums) 1,000 mg PO ONETIME ONE Stop: 11/29/17 11:16 Last Admin: 11/29/17 11:19 Dose: Not Given Levofloxacin/Dextrose 750 mg/ (Premix) 150 mls @ 100 mls/hr IV ONETIME ONE Stop: 11/28/17 16:53 Last Admin: 11/28/17 15:50 Dose: 100 mls/hr Sodium Chloride (Normal Saline) 1,000 mls @ 125 mls/hr IV STAT [facility] Last Infusion: 11/28/17 17:34 Dose: 0 mls/hr Sodium Chloride (Normal Saline) 1,000 mls @ 999 mls/hr IV .Bolus ONE Stop: 11/28/17 18:05 Last Admin: 11/28/17 17:33 Dose: 999 mls/hr Sodium Chloride (Normal Saline) 1,000 mls @ 125 mls/hr IV ASDIRECTED [facility] Vancomycin HCl 1,500 mg/ (Sodium Chloride) 500 mls @ 250 mls/hr IV Q8H [facility] Last Admin: 11/28/17 19:17 Dose: Not Given Levofloxacin/Dextrose 750 mg/ (Premix) 150 mls @ 100 mls/hr IV Q24H [facility] Potassium Chloride/Sodium Chloride (Normal Saline With 40 Meq Kcl) 1,000 mls @ 150 mls/hr IV ASDIRECTED [facility] Stop: 11/30/17 00:24 Last Admin: 11/29/17 01:44 Dose: 150 mls/hr Sodium Chloride (Normal Saline) 1,000 mls @ 999 mls/hr IV STAT [facility] Stop: 11/28/17 19:46 Last Admin: 11/28/17 19:20 Dose: 999 mls/hr Magnesium Sulfate 4 gm/ Premix 100 mls @ 50 mls/hr IV ONETIME ONE Stop: 11/28/17 21:22 Last Admin: 11/28/17 20:04 Dose: 50 mls/hr Sodium Chloride (Normal Saline) 1,000 mls @ 999 mls/hr IV .BOLUS ONE Stop: 11/29/17 00:54 Last Admin: 11/29/17 00:18 Dose: 999 mls/hr Potassium Chloride/Sodium Chloride (Normal Saline With 40 Meq Kcl) 1,000 mls @ 150 mls/hr IV ASDIRECTED [facility] Stop: 11/29/17 17:39 Last Admin: 11/29/17 11:27 Dose: 150 mls/hr Sodium Chloride (Normal Saline) 1,000 mls @ 999 mls/hr IV .BOLUS ONE Stop: 11/29/17 16:52 Last Admin: 11/29/17 16:58 Dose: 999 mls/hr Lidocaine (Xylocaine-Mpf 2%) Confirm Administered Dose 5 ml .ROUTE .STK-MED ONE Stop: 11/29/17 17:10 Last Admin: 11/29/17 17:29 Dose: 5 ml Morphine Sulfate (Morphine) 2 mg IVPUSH Q4H PRN PRN Reason: Pain (severe 7-10) Stop: 11/29/17 17:15 Potassium Chloride (Klor-Con M20) 40 meq PO ONETIME ONE Stop: 11/28/17 17:45 Last Admin: 11/28/17 17:51 Dose: Not Given - Exam Quality Assessment: Supplemental Oxygen General: Alert, Cooperative HEENT: Pupils Equal Lungs: Wheezing Cardiovascular: Regular Rhythm, Tachycardia GI/Abdominal Exam: Abnormal Bowel Sounds, Hepatomegaly Extremities: Other (Left-sided atrial line placed) Skin: Cool - Problem List & Annotations (1) Pancreatic cancer metastasized to liver SNOMED Code(s): 641281024 Code(s): C25.9 - MALIGNANT NEOPLASM OF PANCREAS, UNSPECIFIED; C78.7 - SECONDARY MALIG NEOPLASM OF LIVER AND INTRAHEPATIC BILE DUCT Status: Acute Current Visit: Yes (2) Generalized weakness SNOMED Code(s): 50485316 Code(s): R53.1 - WEAKNESS Status: Acute Current Visit: Yes (3) Anemia SNOMED Code(s): 535386504 Code(s): D64.9 - ANEMIA, UNSPECIFIED Status: Acute Current Visit: No (4) Hyperbilirubinemia SNOMED Code(s): 31414067 Code(s): E80.6 - OTHER DISORDERS OF BILIRUBIN METABOLISM Status: Acute Current Visit: No - Problem List Review Problem List Initiated/Reviewed/Updated: Yes - Plan Plan:: This is a 37-year-old male with a history of schizophrenia and likely pancreatic cancer presenting with weakness and jaundice with elevated LFTs, WBC , elevated lactic acid level indicating sepsis secondary to urinary tract infection complicated by a metastatic pancreatic cancer diagnosis. Assessment/plan #1. Leukocytosis with WBC count of greater than 18 primarily neutrophilic in nature, lactic acid did decrease to within normal limits after her third assessment, however due to map instability and blood pressure instability after the patient was transferred to the ICU and we are getting another lactic acid to see whether the patient is now once again septic. #2. Hemodynamic instability with blood pressures systolically in the 80s diastolically in the 40s, with maps in the high 50s to low 60s. #3. Anemia, weakness likely secondary to #1 and diagnosis of pancreatic metastatic cancer to the liver. #4. Elevated LFTs, bilirubin, alk phosphatase secondary to pancreatic metastatic cancer to the liver. #5. Ostomy bag likely secondary to procedure for pancreatic metastatic cancer shall find out from [place]. For the urinary tract infection causing sepsis we shall be placing the patient on vancomycin, Zosyn, Levaquin for antibiotic coverage until the urinary culture comes back as well as blood cultures come back. Have ordered another lactic acid despite the last one being normal secondary to possible elevation of lactic acid level again indicating sepsis might be coming back. Further hemodynamic instability the patient was moved to the ICU, I placed an arterial line and the patient will be getting a central line by Dr. Walsh. Patient is being fluid resuscitated, he lactic acid level as well as a ABG are being taken. Patient is being monitored by eICU as well. We will be watching the patient's urine output as well and if it is below 0.5 mL/kg/h then we may need to consider pressors. Patient is admitted to inpatient anticipated length of stay is greater than 2 midnights
[2017-11-30] MEDS: Sodium Chloride 0.9% 1,000 ML IV SCH ×3 (00:05→18:32)
--- NOTE | 2017-11-30 02:50 | OR ---
SURGEON: SUKI MILTON MD DATE OF PROCEDURE: 11/29/2017 PREOPERATIVE DIAGNOSIS: Urosepsis. POSTOPERATIVE DIAGNOSIS: Urosepsis. PROCEDURE PERFORMED: Left internal jugular central line placement. ANESTHESIA: Local. ESTIMATED BLOOD LOSS: 10 mL. FINDINGS: Left internal jugular vein access site for triple-lumen central line catheter. COMPLICATIONS: No immediate complications. INDICATIONS: The patient is a 37-year-old male with a history of pancreatic cancer. He was admitted to the ICU tonight with urosepsis. The patient was requiring fluid resuscitation and pressors. The decision was made to place a central line. The Family Medicine team discussed the benefits and risks with the patient. An attempt to place a right internal jugular catheter was made by the attending on the Family Medicine Service and was unsuccessful. A chest x-ray was obtained after this that showed no immediate complications. I was asked to assist with line placement. I had seen the patient previously in clinic and we were scheduled later this week to undergo a Port-A-Cath placement. This case has been canceled. I came and visited with the patient. I personally reviewed the risks and benefits of central line placement with the patient. He verbalized understanding and wishes to proceed. PROCEDURE IN DETAIL: The patient was met in his ICU bed. He was placed in Trendelenburg position. An ultrasound was used to verify the anatomy of the left side of the neck. The patient had a large internal jugular vein and I could see a pulsatile left carotid artery underneath this. The decision was made to attempt the left internal jugular vein placement. The patient was left in Trendelenburg position and I prepped and draped the neck in usual sterile fashion. Using ultrasound guidance, I reidentified the vascular anatomy on left side of my neck. A 5 mL of 1% lidocaine plain were used to anesthetize the area overlying this vein. I then used an ultrasound, then under ultrasound guidance, I placed a finding needle into the left internal jugular vein. A brisk return of venous-appearing blood was obtained. A guidewire was then placed down the finding needle into the internal jugular vein. It passed with no resistance. The finding needle was then removed and a small ginna was made in the skin overlying the guidewire with an 11 blade. A dilator was then placed over the guidewire to dilate the entrance of the vein. The dilator was then removed and a triple-lumen catheter was placed over the guidewire down into the chest at 17 cm. The guidewire was removed and I aspirated all 3 ports. Good venous blood was returned and the ports all flushed easily with sterile normal saline. The blue catheters were then placed over the port sites and the catheter was secured with interrupted 3- 0 silk sutures on either side of the catheter. Sterile dressings were applied. The patient tolerated the procedure well with no immediate complications. I am awaiting a chest x-ray to ensure good placement of the central line. AMADEO HO /[id number]
[2017-11-30] MEDS: Albuterol/Ipratropium 3.0-0.5 MG/3 ML Neb Soln NEB SCH ×4 (03:01→13:48)
--- NOTE | 2017-11-30 03:32 | OR ---
SURGEON: SUKI MILTON MD DATE OF PROCEDURE: 11/29/2017 PREOPERATIVE DIAGNOSIS: Malpositioned central line. POSTOPERATIVE DIAGNOSIS: Malpositioned central line. PROCEDURE PERFORMED: Repositioning left internal jugular central line. ANESTHESIA: None. FINDINGS: Central line appears to be in an intercostal vein. Line pulled back and repositioned without difficulty. COMPLICATIONS: Postoperative chest x-ray showed persistent malpositioning of the catheter. CT of the chest confirmed position in the intervertebral vein, central line pulled. INDICATIONS: The patient is a 37-year-old male, who is in the ICU with urosepsis. I placed a central line without difficulty. The postoperative chest x-ray showed a malpositioned tube questionably in intercostal-vertebral vein. The decision was made to reposition the tube over a guidewire and place a new central line. The patient and I discussed the need for central line placement as well as the risks of the procedure including infection, bleeding, or damage to surrounding structures. The patient verbalized understanding and wishes to proceed. PROCEDURE IN DETAIL: The patient was met in his ICU bed. He was placed in reverse Trendelenburg position. The previous central line was prepped and draped in usual standard fashion. A guidewire was placed down the previous central line. The central line was slowly backed out over the guidewire. It was then safely removed. A good gonzalez of venous blood was noted from the guidewire insertion site. The guidewire was then gently advanced down the vein without difficulty. Given my malpositioning previously, I slid the guidewire in and out of the vein several times and there was no resistance. A new triple-lumen catheter was then brought in and guided over the top of the new guidewire and inserted to the hub of the central line. This was approximately at 20 cm. The guidewire was pulled out. Good venous return was obtained from all 3 ports and they flushed without difficulty. The line was then secured in place with 2 interrupted 3-0 silk sutures. Sterile dressing was applied. There were no immediate complications. The patient had a chest x-ray performed that showed the catheter lying along the left chest. Given this aberrant location, but no evidence of pneumothorax, hemothorax, or pericardial tamponade, the decision was made to perform a CT without contrast. The CT showed that the left IJ catheter coursed posteriorly within the left superior intercostal vein with its tip in the hemiazygos vein at the level of the left mainstem bronchus. Given the 2 attempts, the decision was made to abandon a venous access site along the left IJ vein. The patient was brought back to his ICU bed and I removed the catheter. Pressure was held at the left neck for 5 minutes. After which, the area appeared to be hemostatic with no bleeding. A sterile dressing was applied. The patient tolerated the procedure well. Discussions were had with the ICU team and the decision was made to proceed with a PICC line in the morning. This would allow for better imaging to allow accurate placement. The patient's blood pressure is currently responding well to fluids. Overnight, should the patient need central access, the decision was made to proceed with a femoral vein central line placement. The patient will be monitored closely in the ICU overnight and hopefully we will be able to obtain a PICC line in the morning. AMADEO HO /[id number]
[2017-11-30] MEDS: Piperacillin/Tazobactam 4.5 GM in Sodium Chloride 0.9% 100 ML IV SCH ×4 (05:32→23:17)
[2017-11-30 06:02] LABS: CHLORIDE,CL 112 mmol/L (98-110); SODIUM,NA 137 mmol/L (136-146)
[2017-11-30] MEDS ORDERED: Sodium Chloride 0.9% 1,000 ML IV SCH (08:45)
[2017-11-30] MEDS: Meropenem 1 GM in Sodium Chloride 0.9% 100 ML IV SCH ×2 (09:53→17:11)
--- NOTE | 2017-11-30 10:03 | CR ---
EXAM DATE: 11/28/17 PATIENT'S AGE: 37 Patient: SIERRA MCGEE Facility: [place], [place] Site . Site : 1980 Study: XRay Chest [id number]/27/2018 6:54:46 PM Ordering Physician: Evaristo Acosta Final Report: INDICATION: Attempted central line placement. Evaluate for pneumothorax. TECHNIQUE: AP portable semi upright chest. COMPARISON: November 28, 2017. FINDINGS: The image is underpenetrated. Respiratory motion artifact. Azygos lobe on the right. No convincing evidence for pneumothorax. There is a radiodense metallic ring projected over the superior aspect of the right hemithorax presumably external to the patient. IMPRESSION: No pneumothorax visualized. Dictated by Wilver Mace MD @ Nov 29 2017 6:56PM (Electronic Signature) Report Signed by Proxy. [facility]
--- NOTE | 2017-11-30 10:13 | CR ---
EXAM DATE: 11/28/17 PATIENT'S AGE: 37 Patient: SIERRA MCGEE Facility: [place], [place] Site . Site : 1980 Study: XRay Chest [id number]/27/2018 9:48:53 PM Ordering Physician: Evaristo Acosta Final Report: INDICATION: Central line placement TECHNIQUE: Chest radiograph 1 view COMPARISON: 11/29/2017 FINDINGS: Mediastinum: The heart silhouette is normal in size and morphology. A left IJ line is present with a tortuous course overlying the aortic arch, likely with its tip in the left superior intercostal vein. Lungs: Mild perihilar edema is present without significant interval change. No sign of pleural effusion seen. No pneumothorax is identified. Bones and soft tissue: Unremarkable for age. IMPRESSION: 1. A left IJ line is present with a tortuous course overlying the aortic arch, likely with its tip in the left superior intercostal vein. Dictated by Juancarlos Dunn MD @ 11/29/2017 9:53:52 PM Dictated by: Juancarlos Dunn MD @ 11/29/2017 21:53:57 (Electronic Signature) Report Signed by Proxy. DONALDO
--- NOTE | 2017-11-30 10:17 | CT ---
EXAM DATE: 11/28/17 PATIENT'S AGE: 37 Patient: SIERRA MCGEE Facility: [place], [place] Site . Site : 1980 Study: CT Chest [id number]/27/2018 11:09:05 PM Ordering Physician: Evaristo Acosta Final Report: INDICATION: Central line placement TECHNIQUE: CT chest without i.v. contrast. Coronal and sagittal reformats were obtained. CONTRAST: None COMPARISON: None FINDINGS: Cardiovascular: The heart has an unremarkable appearance and size. The pulmonary arteries are unremarkable in appearance. No sign of aneurysm seen in the thoracic aorta. The presence of aortic dissection cannot be evaluated without the use of intravenous contrast. There is a left IJ catheter present which courses posteriorly within the left superior intercostal vein and has its tip within the hemiazygous vein at the level of the left mainstem bronchus. Mild wispy infiltration of the mediastinal fat is seen near the thoracic inlet. This may be due to venous hematoma from recent line placement attempts. Mediastinum: There is a 1.5 cm right paratracheal lymph node present at the thoracic inlet. The thoracic esophagus is fluid-filled and distended which may be due to gastroesophageal reflux. Lungs: There is a 5 mm calcified granuloma in the anterior left apex. Mild subpleural interlobular septal thickening is present. Pleura and pericardium: Trace left pleural effusion seen. No significant pericardial effusion is present. Chest wall and axilla: No mass or adenopathy seen. Bones: Unremarkable for age. Upper abdomen: Moderate to severe gaseous and fluid distention of the stomach is noted partially visualized. There is a hypodense ill-defined lesion in the left lateral segment of the liver measuring 2.2 cm. IMPRESSIONS: 1. There is a left IJ catheter present which courses posteriorly within the left superior intercostal vein and has its tip within the hemiazygous vein at the level of the left mainstem bronchus. 2. There is a 1.5 cm right paratracheal lymph node present at the thoracic inlet. Metastatic disease is suspected. 3. There is a hypodense ill-defined lesion in the left lateral segment of the liver measuring 2.2 cm. Assessment with liver MRI may be helpful to exclude metastatic disease. The findings were discussed with Dr. Loera at 11:29 PM. Dictated by Juancarlos Dunn MD @ 11/29/2017 11:25:24 PM Dictated by: Juancarlos Dunn MD @ 11/29/2017 23:30:13 (Electronic Signature) Report Signed by Proxy. DONALDO
--- NOTE | 2017-11-30 10:18 | CR ---
EXAM DATE: 11/28/17 PATIENT'S AGE: 37 Patient: SIERRA MCGEE Facility: [place], [place] : 1980 Study: XRay Chest [id number]/27/2018 10:24:13 PM Ordering Physician: Evaristo Acosta Final Report: Indication: Line placement Technique: Chest 1 view Comparison: Same date at 9:39 p.m. Findings/Impression: A left internal jugular central venous catheter tip projects at the level of the proximal descending aorta. Although this may be within the left superior intercostal vein, intra-arterial placement cannot be excluded. Consider contrast enhanced Chest CT for further evaluation. These findings were discussed with Dr. Loera at 10:35 p.m. on November 29, 2017. Dictated by Ginger Morrison MD @ Nov 29 2017 10:24PM (Electronic Signature) Report Signed by Proxy. DONALDO
[2017-11-30] MEDS ORDERED: Heparin Sodium 100 Units/ML 3 ML Syringe FLUSH ONE (11:40)
--- NOTE | 2017-11-30 12:46 | PCM.SN ---
- Free Text/Narrative Note: Visited with family and patient this morning about options as his condition is still critical. Explained that we are going to get the PICC line today which will help us with hemodynamics, however patient's WBC's are still not improving. We have added Meripenem to his Vanc, Zosyn, and Levquin. I will cont. to treat him with every possible option I have but if he were to worsen would they be okay with transfer. Initially patient stated that he did not want transfer at all but sister did tell him that the family will follow him to wherever he is taken too. Patient then was more undecided on wether he would agree with this. Given his stage 4 pancreatic cancer and DNR/DNI status I did request his wishes to not place a NG tube at this time. Family and patient are going to discuss more as to how much intervention they wish at this time. For now we will cont. with our current treatment plan and maintain MAP near 65 or greater. Will start pressors if worsening.
--- NOTE | 2017-11-30 12:59 | PCM.SN ---
- Free Text/Narrative Note: Blood culture revealed E-coli ESBL. Patient had been placed on Meripenum this am prior to results secondary to clinical nonimprovement.
--- NOTE | 2017-11-30 13:15 | CR ---
EXAMINATION: Fluoro and ultrasound guided left-sided PICC line placement. HISTORY: PICC line placement. TECHNIQUE/FINDINGS: After written informed consent was obtained from the patient using ultrasound an d Fluoro guidance under aseptic conditions utilizing 1% lidocaine as local anesthesia left basilic ve in was accessed and 5 Portuguese dual lumen PICC catheter was deployed with its tip in the distal superio r vena cava. The catheter flushes and withdraws blood well. The catheter is flushed with the diluted heparin. The catheter secured well. IMPRESSION: Successful Fluoro and ultrasound guided PICC line placement.
[2017-11-30] MEDS: Levofloxacin/Dextrose 5%-Water 750 MG in Premix Bag 1 BAG IV SCH (17:30)
--- NOTE | 2017-11-30 20:00 | PCM.PN ---
- General Info Date of Service: 11/30/17 Admission Dx/Problem (Free Text): Patient did not receive his central line last night as we abandoned after the second attempt for a central line on the left IJ. Patient is to get a PICC line today, patient mean arterial pressures have been relatively stable, the patient did require another bolus of fluids this morning when I saw him. We have had a discussion with the family in regards to possibly considering transfer to a more extensive facility due to the patient's clinical situation. The patient is currently on vancomycin, Levaquin, Zosyn and after talking with pharmacy, decision was made to also place the patient on meropenem. - Patient Data Vitals - Most Recent: Last Vital Signs Temp 37.0 C 11/30/17 16:00 Pulse 129 H 11/29/17 19:00 Resp 22 H 11/30/17 19:00 BP 90/45 L 11/30/17 19:00 Pulse Ox 97 11/30/17 19:00 Weight - Most Recent: 145.3 kg I&O - Last 24 Hours: Intake & Output 11/30/17 11/30/17 11/30/17 06:59 14:59 22:59 Intake Total 3200 1200 5150 Output Total 900 1500 Balance 2300 1200 3650 Lab Results Last 24 Hours: Laboratory Results - last 24 hr 11/29/17 11/29/17 11/30/17 Range/Units 20:10 20:10 05:29 WBC (4.0-11.0) K/uL RBC (4.50-5.90) M/uL Hgb (13.0-17.0) g/dL Hct (38.0-50.0) % MCV (80.0-98.0) fL MCH (27.0-32.0) pg MCHC (31.0-37.0) g/dL RDW Std Deviation (28.0-62.0) fl RDW Coeff of Lebron (11.0-15.0) % Plt Count (150-400) K/uL Add Manual Diff Neutrophils % (Manual) (48.0-80.0) % Band Neutrophils % % Lymphocytes % (Manual) (16.0-40.0) % Monocytes % (Manual) (0.0-15.0) % Eosinophils % (Manual) (0.0-7.0) % Basophils % (Manual) (0.0-1.5) % Nucleated RBC % /100WBC Absolute Seg Neuts (1.4-5.7) Band Neutrophils # Lymphocytes # (Manual) (0.6-2.4) Monocytes # (Manual) (0.0-0.8) Eosinophils # (Manual) (0.0-0.7) Basophils # (Manual) (0.0-0.1) Nucleated RBCs # K/uL ABG pH 7.364 (7.35-7.45) ABG pCO2 30 L (35-45) mmHG ABG pO2 114 H (75-100) mmHG ABG HCO3 17 L (22-26) mEq/L ABG Total CO2 15.8 ABG Base Excess -7.4 L (-2.0-2.0) Lactate 0.7 (0.20-2.00) mmol/L Sodium 137 (136-146) mmol/L Potassium 3.6 (3.5-5.1) mmol/L Chloride 112 H (98-110) mmol/L Carbon Dioxide 17 L (21-31) mmol/L BUN 17 (6.0-23.0) mg/dL Creatinine 0.8 (0.6-1.5) mg/dL Est Cr Clr Drug Dosing 148.42 mL/min Estimated GFR (MDRD) > 60.0 ml/min Glucose 81 (60-110) mg/dL Calcium 6.7 L (8.8-10.8) mg/dL Phosphorus 2.4 (2.4-4.7) mg/dL Magnesium 1.5 (1.5-2.3) mEq/L Total Bilirubin 10.0 H (0.1-1.5) mg/dL AST 92 H (5-40) IU/L ALT 50 (8-54) IU/L Alkaline Phosphatase 241 H (40-150) Total Protein 4.0 L (6.0-8.0) g/dL Albumin 1.7 L (3.5-5.0) g/dL Globulin 2.3 (2.0-3.5) g/dL Albumin/Globulin Ratio 0.7 L (1.3-2.8) Vancomycin Trough (5.0-10.0) ug/mL 02/28/18 02/28/18 Range/Units 05:29 11:16 WBC 22.22 H (4.0-11.0) K/uL RBC 2.95 L (4.50-5.90) M/uL Hgb 7.7 L (13.0-17.0) g/dL Hct 23.9 L (38.0-50.0) % MCV 81.0 (80.0-98.0) fL MCH 26.1 L (27.0-32.0) pg MCHC 32.2 (31.0-37.0) g/dL RDW Std Deviation 49.9 (28.0-62.0) fl RDW Coeff of Lebron 17 H (11.0-15.0) % Plt Count 41 L (150-400) K/uL Add Manual Diff YES Neutrophils % (Manual) 69 (48.0-80.0) % Band Neutrophils % 7 % Lymphocytes % (Manual) 20 (16.0-40.0) % Monocytes % (Manual) 2 (0.0-15.0) % Eosinophils % (Manual) 1 (0.0-7.0) % Basophils % (Manual) 1 (0.0-1.5) % Nucleated RBC % 0.0 /100WBC Absolute Seg Neuts 15.3 H (1.4-5.7) Band Neutrophils # 1.6 Lymphocytes # (Manual) 4.4 H (0.6-2.4) Monocytes # (Manual) 0.4 (0.0-0.8) Eosinophils # (Manual) 0.2 (0.0-0.7) Basophils # (Manual) 0.2 H (0.0-0.1) Nucleated RBCs # 0 K/uL ABG pH (7.35-7.45) ABG pCO2 (35-45) mmHG ABG pO2 (75-100) mmHG ABG HCO3 (22-26) mEq/L ABG Total CO2 ABG Base Excess (-2.0-2.0) Lactate (0.20-2.00) mmol/L Sodium (136-146) mmol/L Potassium (3.5-5.1) mmol/L Chloride (98-110) mmol/L Carbon Dioxide (21-31) mmol/L BUN (6.0-23.0) mg/dL Creatinine (0.6-1.5) mg/dL Est Cr Clr Drug Dosing mL/min Estimated GFR (MDRD) ml/min Glucose (60-110) mg/dL Calcium (8.8-10.8) mg/dL Phosphorus (2.4-4.7) mg/dL Magnesium (1.5-2.3) mEq/L Total Bilirubin (0.1-1.5) mg/dL AST (5-40) IU/L ALT (8-54) IU/L Alkaline Phosphatase (40-150) Total Protein (6.0-8.0) g/dL Albumin (3.5-5.0) g/dL Globulin (2.0-3.5) g/dL Albumin/Globulin Ratio (1.3-2.8) Vancomycin Trough 26.2 H (5.0-10.0) ug/mL [facility] Results Last 24 Hours: Microbiology 11/28/17 17:36 Aerobic Blood Culture - Final Blood Anaerobic Blood Culture - Final 11/28/17 17:30 Aerobic Blood Culture - Final Blood Anaerobic Blood Culture - Final Med Orders - Current: Current Medications Acetaminophen (Tylenol) 650 mg PO Q4H PRN PRN Reason: Pain (Mild 1-3)/fever Last Admin: 11/28/17 20:15 Dose: 650 mg Albuterol/Ipratropium (Duoneb 3.0-0.5 Mg/3 Ml) 3 ml NEB Q4HRRT PRN PRN Reason: Wheezing Clozapine (Clozapine) 100 mg PO ACBREAKFAST [facility] Clozapine (Clozapine) 200 mg PO BEDTIME [facility] Escitalopram Oxalate (Lexapro) 30 mg PO DAILY [facility] Piperacillin Sod/Tazobactam (Sod 4.5 gm/ Sodium Chloride) 100 mls @ 100 mls/hr IV Q6H [facility] Last Admin: 11/30/17 18:24 Dose: 100 mls/hr Levofloxacin/Dextrose 750 mg/ (Premix) 150 mls @ 100 mls/hr IV Q24H [facility] Last Admin: 11/30/17 17:30 Dose: 100 mls/hr Sodium Chloride (Normal Saline) 1,000 mls @ 150 mls/hr IV ASDIRECTED [facility] Last Admin: 11/30/17 18:32 Dose: 150 mls/hr Meropenem 1 gm/ Sodium (Chloride) 100 mls @ 200 mls/hr IV Q8H [facility] Last Admin: 11/30/17 17:11 Dose: 200 mls/hr Vancomycin HCl 1,500 mg/ (Sodium Chloride) 500 mls @ 250 mls/hr IV Q12H [facility] Last Admin: 11/30/17 13:30 Dose: 250 mls/hr Omeprazole (Omeprazole) 20 mg PO ACBREAKFAST [facility] Ondansetron HCl (Zofran) 4 mg IVPUSH Q4H PRN PRN Reason: Nausea/Vomiting Sodium Chloride (Saline Flush) 10 ml FLUSH ASDIRECTED PRN PRN Reason: Keep Vein Open Sodium Chloride (Saline Flush) 2.5 ml FLUSH ASDIRECTED PRN PRN Reason: Keep Vein Open Vancomycin HCl (Pharmacy To Dose - Vancomycin) 1 dose .XX ASDIRECTED [facility] Discontinued Medications Albuterol/Ipratropium (Duoneb 3.0-0.5 Mg/3 Ml) 3 ml NEB Q4HRRT [facility] Last Admin: 11/30/17 13:48 Dose: 3 ml Calcium Carbonate/Glycine (Tums) 1,000 mg PO ONETIME ONE Stop: 11/29/17 10:54 Last Admin: 11/29/17 11:17 Dose: 1,000 mg Calcium Carbonate/Glycine (Tums) 1,000 mg PO ONETIME ONE Stop: 11/29/17 11:16 Last Admin: 11/29/17 11:19 Dose: Not Given Heparin Sodium (Porcine) (Heparin Lock Flush 100 Units/Ml) 300 unit FLUSH ASDIRECTED ONE Stop: 11/30/17 11:41 Last Admin: 11/30/17 11:51 Dose: 300 unit Levofloxacin/Dextrose 750 mg/ (Premix) 150 mls @ 100 mls/hr IV ONETIME ONE Stop: 11/28/17 16:53 Last Admin: 11/28/17 15:50 Dose: 100 mls/hr Sodium Chloride (Normal Saline) 1,000 mls @ 125 mls/hr IV STAT [facility] Last Infusion: 11/28/17 17:34 Dose: 0 mls/hr Sodium Chloride (Normal Saline) 1,000 mls @ 999 mls/hr IV .Bolus ONE Stop: 11/28/17 18:05 Last Admin: 11/28/17 17:33 Dose: 999 mls/hr Sodium Chloride (Normal Saline) 1,000 mls @ 125 mls/hr IV ASDIRECTED [facility] Vancomycin HCl 1,500 mg/ (Sodium Chloride) 500 mls @ 250 mls/hr IV Q8H [facility] Last Admin: 11/28/17 19:17 Dose: Not Given Levofloxacin/Dextrose 750 mg/ (Premix) 150 mls @ 100 mls/hr IV Q24H [facility] Potassium Chloride/Sodium Chloride (Normal Saline With 40 Meq Kcl) 1,000 mls @ 150 mls/hr IV ASDIRECTED [facility] Stop: 11/30/17 00:24 Last Admin: 11/29/17 01:44 Dose: 150 mls/hr Sodium Chloride (Normal Saline) 1,000 mls @ 999 mls/hr IV STAT [facility] Stop: 11/28/17 19:46 Last Admin: 11/28/17 19:20 Dose: 999 mls/hr Vancomycin HCl 1,500 mg/ (Sodium Chloride) 500 mls @ 250 mls/hr IV Q8H [facility] Last Admin: 11/30/17 12:48 Dose: Not Given Magnesium Sulfate 4 gm/ Premix 100 mls @ 50 mls/hr IV ONETIME ONE Stop: 11/28/17 21:22 Last Admin: 11/28/17 20:04 Dose: 50 mls/hr Sodium Chloride (Normal Saline) 1,000 mls @ 999 mls/hr IV .BOLUS ONE Stop: 11/29/17 00:54 Last Admin: 11/29/17 00:18 Dose: 999 mls/hr Potassium Chloride/Sodium Chloride (Normal Saline With 40 Meq Kcl) 1,000 mls @ 150 mls/hr IV ASDIRECTED [facility] Stop: 11/29/17 17:39 Last Admin: 11/29/17 11:27 Dose: 150 mls/hr Sodium Chloride (Normal Saline) 1,000 mls @ 999 mls/hr IV .BOLUS ONE Stop: 11/29/17 16:52 Last Admin: 11/29/17 16:58 Dose: 999 mls/hr Sodium Chloride (Normal Saline) 1,000 mls @ 999 mls/hr IV ASDIRECTED [facility] Last Admin: 11/30/17 00:05 Dose: 999 mls/hr Sodium Chloride (Normal Saline) 1,000 mls @ 999 mls/hr IV STAT [facility] Last Admin: 11/30/17 09:26 Dose: 999 mls/hr Lidocaine (Xylocaine-Mpf 2%) Confirm Administered Dose 5 ml .ROUTE .STK-MED ONE Stop: 11/29/17 17:10 Last Admin: 11/29/17 17:29 Dose: 5 ml Lidocaine HCl (Xylocaine-Mpf 1%) 5 ml INJECT ONETIME STA Stop: 11/30/17 11:47 Last Admin: 11/30/17 11:50 Dose: 5 ml Morphine Sulfate (Morphine) 2 mg IVPUSH Q4H PRN PRN Reason: Pain (severe 7-10) Stop: 11/29/17 17:15 Potassium Chloride (Klor-Con M20) 40 meq PO ONETIME ONE Stop: 11/28/17 17:45 Last Admin: 11/28/17 17:51 Dose: Not Given - Exam Quality Assessment: Supplemental Oxygen General: Alert, Cooperative, Mild Distress Lungs: Clear to Auscultation, Rhonchi Cardiovascular: Tachycardia GI/Abdominal Exam: Distended, Other (Patient's ostomy bag looks clean presently. ) Extremities: Limited Range of Motion - Problem List & Annotations (1) Pancreatic cancer metastasized to liver SNOMED Code(s): 208370113 Code(s): C25.9 - MALIGNANT NEOPLASM OF PANCREAS, UNSPECIFIED; C78.7 - SECONDARY MALIG NEOPLASM OF LIVER AND INTRAHEPATIC BILE DUCT Status: Acute Current Visit: Yes (2) Generalized weakness SNOMED Code(s): 79226560 Code(s): R53.1 - WEAKNESS Status: Acute Current Visit: Yes (3) Anemia SNOMED Code(s): 218244805 Code(s): D64.9 - ANEMIA, UNSPECIFIED Status: Acute Current Visit: No (4) Hyperbilirubinemia SNOMED Code(s): 65925695 Code(s): E80.6 - OTHER DISORDERS OF BILIRUBIN METABOLISM Status: Acute Current Visit: No - Problem List Review Problem List Initiated/Reviewed/Updated: Yes - My Orders Last 24 Hours: My Active Orders 12/01/17 05:11 AMMONIA VENOUS [CHEM] AM INR,PT,PROTHROMBIN TIME [COAG] AM - Plan Plan:: This is a 37-year-old male with a history of schizophrenia and likely pancreatic cancer presenting with weakness and jaundice with elevated LFTs, WBC , elevated lactic acid level indicating sepsis secondary to urinary tract infection complicated by a metastatic pancreatic cancer diagnosis. Assessment/plan #1. Leukocytosis with WBC count of greater than 18 primarily neutrophilic in nature, lactic acid did decrease to within normal limits after her third assessment, however due to map instability and blood pressure instability after the patient was transferred to the ICU and we are getting another lactic acid to see whether the patient is now once again septic. #2. Hemodynamic instability with blood pressures systolically in the 80s diastolically in the 40s, with maps in the high 50s to low 60s. #3. Anemia, weakness likely secondary to #1 and diagnosis of pancreatic metastatic cancer to the liver. #4. Elevated LFTs, bilirubin, alk phosphatase secondary to pancreatic metastatic cancer to the liver. #5. Ostomy bag likely secondary to procedure for pancreatic metastatic cancer shall find out from [place]. For the urinary tract infection causing sepsis we shall be placing the patient on vancomycin, Zosyn, Levaquin for antibiotic coverage until the urinary culture comes back as well as blood cultures come back. Due to the elevation of the WBC Dr. Loera after speaking with pharmacy also wanted to add meropenem. Have ordered another lactic acid despite the last one being normal secondary to possible elevation which came back normal. Further hemodynamic instability the patient was moved to the ICU, I placed an arterial line last night, patient received a PICC line today which he tolerated well. Patient is being fluid resuscitated primarily to control his mean arterial pressures. Patient is being monitored by eICU as well. We will be watching the patient's urine output as well and if it is below 0.5 mL/kg/h then we may need to consider pressors. Patient is admitted to inpatient anticipated length of stay is greater than 2 midnights
[2017-11-30] MEDS: cloZAPine 100 MG Tab PO SCH (20:42)
[2017-11-30] MEDS: Albuterol/Ipratropium 3.0-0.5 MG/3 ML Neb Soln NEB PRN (23:17)
[2017-12-01] MEDS: Meropenem 1 GM in Sodium Chloride 0.9% 100 ML IV SCH ×3 (02:53→19:01)
[2017-12-01] MEDS: Piperacillin/Tazobactam 4.5 GM in Sodium Chloride 0.9% 100 ML IV SCH ×4 (05:55→23:11)
[2017-12-01 06:04] LABS: CHLORIDE,CL 111 mmol/L (98-107); SODIUM,NA 139 mmol/L (136-148)
[2017-12-01] MEDS: Sodium Chloride 0.9% 1,000 ML IV SCH ×2 (06:13→17:09)
[2017-12-01] MEDS: Omeprazole 20 MG Cap.CR PO SCH (08:38)
[2017-12-01] MEDS: cloZAPine 100 MG Tab PO SCH ×2 (08:38→20:42)
[2017-12-01] MEDS: Escitalopram 10 MG Tab PO SCH (09:42)
[2017-12-01] MEDS: Albuterol/Ipratropium 3.0-0.5 MG/3 ML Neb Soln NEB PRN (12:16)
--- NOTE | 2017-12-01 15:14 | PCM.PN ---
- General Info Date of Service: 12/01/17 Subjective Update: Patient was having nausea throughout the night last night, patient had refused the NG tube yesterday as well which would've helped the patient with an terms of his nausea. Spoke with Dr. Butler in the morning who states that the patient is in a very critical state and that he would not put a port and to the patient and that if there is something to be done surgically that the recommendation is that the patient be seen by his [facility] surgeon. I had an extensive discussion with the patient and his 2 sisters and mother in terms of the outlook for the patient presently along with the fact that he has stage IV pancreatic cancer, and the likelihood of survival being very bleak. Likelihood that the patient could possibly anywhere between a few days to a couple of months at the most. Discussion was had in terms of the idea of hospice and comfort care. The family states that they will take some time to discuss this issue. - Patient Data Vitals - Most Recent: Last Vital Signs Temp 36.6 C 12/01/17 12:00 Pulse 129 H 11/29/17 19:00 Resp 20 12/01/17 14:00 BP 107/48 L 12/01/17 14:00 Pulse Ox 99 12/01/17 14:00 Weight - Most Recent: 145.8 kg I&O - Last 24 Hours: Intake & Output 12/01/17 12/01/17 12/01/17 06:59 14:59 22:59 Intake Total 1875 200 Output Total 1800 Balance 75 200 Lab Results Last 24 Hours: Laboratory Results - last 24 hr 12/01/17 12/01/17 12/01/17 Range/Units 05:27 05:27 05:27 WBC 23.14 H (4.0-11.0) K/uL RBC 3.01 L (4.50-5.90) M/uL Hgb 7.7 L (13.0-17.0) g/dL Hct 24.2 L (38.0-50.0) % MCV 80.4 (80.0-98.0) fL MCH 25.6 L (27.0-32.0) pg MCHC 31.8 (31.0-37.0) g/dL RDW Std Deviation 49.2 (28.0-62.0) fl RDW Coeff of Lebron 17 H (11.0-15.0) % Plt Count 72 L (150-400) K/uL Add Manual Diff YES Neutrophils % (Manual) 86 H (48.0-80.0) % Band Neutrophils % 7 % Lymphocytes % (Manual) 3 L (16.0-40.0) % Monocytes % (Manual) 4 (0.0-15.0) % Nucleated RBC % 0.0 /100WBC Absolute Seg Neuts 19.9 H (1.4-5.7) Band Neutrophils # 1.6 Lymphocytes # (Manual) 0.7 (0.6-2.4) Monocytes # (Manual) 0.9 H (0.0-0.8) Nucleated RBCs # 0 K/uL INR 1.12 Sodium 139 (136-148) mmol/L Potassium 3.4 L (3.5-5.1) mmol/L Chloride 111 H (98-107) mmol/L Carbon Dioxide 21.9 (21.0-32.0) mmol/L BUN 11 (7.0-18.0) mg/dL Creatinine 0.8 (0.8-1.3) mg/dL Est Cr Clr Drug Dosing 148.42 mL/min Estimated GFR (MDRD) > 60.0 ml/min Glucose 93 (74-106) mg/dL Calcium 7.6 L (8.5-10.1) mg/dL Phosphorus 2.4 L (2.6-4.7) mg/dL Magnesium 1.7 (1.5-2.0) mg/dL Total Bilirubin 11.1 H (0.2-1.0) mg/dL AST 92 H (15-37) U/L ALT 57 (14-63) U/L Alkaline Phosphatase 380 H (46-116) U/L Ammonia (19-54) ug/dL Total Protein 5.0 L (6.4-8.2) g/dL Albumin 1.1 L (3.4-5.0) g/dL Globulin 3.9 H (2.0-3.5) g/dL Albumin/Globulin Ratio 0.3 L (1.3-2.8) 12/01/17 Range/Units 05:27 WBC (4.0-11.0) K/uL RBC (4.50-5.90) M/uL Hgb (13.0-17.0) g/dL Hct (38.0-50.0) % MCV (80.0-98.0) fL MCH (27.0-32.0) pg MCHC (31.0-37.0) g/dL RDW Std Deviation (28.0-62.0) fl RDW Coeff of Lebron (11.0-15.0) % Plt Count (150-400) K/uL Add Manual Diff Neutrophils % (Manual) (48.0-80.0) % Band Neutrophils % % Lymphocytes % (Manual) (16.0-40.0) % Monocytes % (Manual) (0.0-15.0) % Nucleated RBC % /100WBC Absolute Seg Neuts (1.4-5.7) Band Neutrophils # Lymphocytes # (Manual) (0.6-2.4) Monocytes # (Manual) (0.0-0.8) Nucleated RBCs # K/uL INR Sodium (136-148) mmol/L Potassium (3.5-5.1) mmol/L Chloride (98-107) mmol/L Carbon Dioxide (21.0-32.0) mmol/L BUN (7.0-18.0) mg/dL Creatinine (0.8-1.3) mg/dL Est Cr Clr Drug Dosing mL/min Estimated GFR (MDRD) ml/min Glucose (74-106) mg/dL Calcium (8.5-10.1) mg/dL Phosphorus (2.6-4.7) mg/dL Magnesium (1.5-2.0) mg/dL Total Bilirubin (0.2-1.0) mg/dL AST (15-37) U/L ALT (14-63) U/L Alkaline Phosphatase (46-116) U/L Ammonia 31 (19-54) ug/dL Total Protein (6.4-8.2) g/dL Albumin (3.4-5.0) g/dL Globulin (2.0-3.5) g/dL Albumin/Globulin Ratio (1.3-2.8) Erick Results Last 24 Hours: Microbiology 11/28/17 17:36 Aerobic Blood Culture - Final Blood Anaerobic Blood Culture - Final 11/28/17 17:30 Aerobic Blood Culture - Final Blood Anaerobic Blood Culture - Final Med Orders - Current: Current Medications Acetaminophen (Tylenol) 650 mg PO Q4H PRN PRN Reason: Pain (Mild 1-3)/fever Last Admin: 11/28/17 20:15 Dose: 650 mg Albuterol/Ipratropium (Duoneb 3.0-0.5 Mg/3 Ml) 3 ml NEB Q4HRRT PRN PRN Reason: Wheezing Last Admin: 12/01/17 12:16 Dose: 3 ml Clozapine (Clozapine) 100 mg PO ACBREAKFAST [facility] Last Admin: 12/01/17 08:38 Dose: Not Given Clozapine (Clozapine) 200 mg PO BEDTIME [facility] Last Admin: 11/30/17 20:42 Dose: 200 mg Escitalopram Oxalate (Lexapro) 30 mg PO DAILY [facility] Last Admin: 12/01/17 09:42 Dose: Not Given Piperacillin Sod/Tazobactam (Sod 4.5 gm/ Sodium Chloride) 100 mls @ 100 mls/hr IV Q6H [facility] Last Admin: 12/01/17 11:19 Dose: 100 mls/hr Sodium Chloride (Normal Saline) 1,000 mls @ 150 mls/hr IV ASDIRECTED [facility] Last Admin: 12/01/17 06:13 Dose: 150 mls/hr Meropenem 1 gm/ Sodium (Chloride) 100 mls @ 200 mls/hr IV Q8H [facility] Last Admin: 12/01/17 09:43 Dose: 200 mls/hr Vancomycin HCl 1,500 mg/ (Sodium Chloride) 500 mls @ 250 mls/hr IV Q12H [facility] Last Admin: 12/01/17 12:58 Dose: 250 mls/hr Omeprazole (Omeprazole) 20 mg PO ACBREAKFAST [facility] Last Admin: 12/01/17 08:38 Dose: Not Given Ondansetron HCl (Zofran) 4 mg IVPUSH Q4H PRN PRN Reason: Nausea/Vomiting Last Admin: 11/30/17 22:49 Dose: 4 mg Sodium Chloride (Saline Flush) 10 ml FLUSH ASDIRECTED PRN PRN Reason: Keep Vein Open Sodium Chloride (Saline Flush) 2.5 ml FLUSH ASDIRECTED PRN PRN Reason: Keep Vein Open Vancomycin HCl (Pharmacy To Dose - Vancomycin) 1 dose .XX ASDIRECTED [facility] Discontinued Medications Albuterol/Ipratropium (Duoneb 3.0-0.5 Mg/3 Ml) 3 ml NEB Q4HRRT [facility] Last Admin: 11/30/17 13:48 Dose: 3 ml Calcium Carbonate/Glycine (Tums) 1,000 mg PO ONETIME ONE Stop: 11/29/17 10:54 Last Admin: 11/29/17 11:17 Dose: 1,000 mg Calcium Carbonate/Glycine (Tums) 1,000 mg PO ONETIME ONE Stop: 11/29/17 11:16 Last Admin: 11/29/17 11:19 Dose: Not Given Heparin Sodium (Porcine) (Heparin Lock Flush 100 Units/Ml) 300 unit FLUSH ASDIRECTED ONE Stop: 11/30/17 11:41 Last Admin: 11/30/17 11:51 Dose: 300 unit Levofloxacin/Dextrose 750 mg/ (Premix) 150 mls @ 100 mls/hr IV ONETIME ONE Stop: 11/28/17 16:53 Last Admin: 11/28/17 15:50 Dose: 100 mls/hr Sodium Chloride (Normal Saline) 1,000 mls @ 125 mls/hr IV STAT [facility] Last Infusion: 11/28/17 17:34 Dose: 0 mls/hr Sodium Chloride (Normal Saline) 1,000 mls @ 999 mls/hr IV .Bolus ONE Stop: 11/28/17 18:05 Last Admin: 11/28/17 17:33 Dose: 999 mls/hr Sodium Chloride (Normal Saline) 1,000 mls @ 125 mls/hr IV ASDIRECTED [facility] Vancomycin HCl 1,500 mg/ (Sodium Chloride) 500 mls @ 250 mls/hr IV Q8H [facility] Last Admin: 11/28/17 19:17 Dose: Not Given Levofloxacin/Dextrose 750 mg/ (Premix) 150 mls @ 100 mls/hr IV Q24H [facility] Levofloxacin/Dextrose 750 mg/ (Premix) 150 mls @ 100 mls/hr IV Q24H [facility] Last Admin: 11/30/17 17:30 Dose: 100 mls/hr Potassium Chloride/Sodium Chloride (Normal Saline With 40 Meq Kcl) 1,000 mls @ 150 mls/hr IV ASDIRECTED [facility] Stop: 11/30/17 00:24 Last Admin: 11/29/17 01:44 Dose: 150 mls/hr Sodium Chloride (Normal Saline) 1,000 mls @ 999 mls/hr IV STAT [facility] Stop: 11/28/17 19:46 Last Admin: 11/28/17 19:20 Dose: 999 mls/hr Vancomycin HCl 1,500 mg/ (Sodium Chloride) 500 mls @ 250 mls/hr IV Q8H [facility] Last Admin: 11/30/17 12:48 Dose: Not Given Magnesium Sulfate 4 gm/ Premix 100 mls @ 50 mls/hr IV ONETIME ONE Stop: 11/28/17 21:22 Last Admin: 11/28/17 20:04 Dose: 50 mls/hr Sodium Chloride (Normal Saline) 1,000 mls @ 999 mls/hr IV .BOLUS ONE Stop: 11/29/17 00:54 Last Admin: 11/29/17 00:18 Dose: 999 mls/hr Potassium Chloride/Sodium Chloride (Normal Saline With 40 Meq Kcl) 1,000 mls @ 150 mls/hr IV ASDIRECTED [facility] Stop: 11/29/17 17:39 Last Admin: 11/29/17 11:27 Dose: 150 mls/hr Sodium Chloride (Normal Saline) 1,000 mls @ 999 mls/hr IV .BOLUS ONE Stop: 11/29/17 16:52 Last Admin: 11/29/17 16:58 Dose: 999 mls/hr Sodium Chloride (Normal Saline) 1,000 mls @ 999 mls/hr IV ASDIRECTED [facility] Last Admin: 11/30/17 00:05 Dose: 999 mls/hr Sodium Chloride (Normal Saline) 1,000 mls @ 999 mls/hr IV STAT [facility] Last Admin: 11/30/17 09:26 Dose: 999 mls/hr Lidocaine (Xylocaine-Mpf 2%) Confirm Administered Dose 5 ml .ROUTE .STK-MED ONE Stop: 11/29/17 17:10 Last Admin: 11/29/17 17:29 Dose: 5 ml Lidocaine HCl (Xylocaine-Mpf 1%) 5 ml INJECT ONETIME STA Stop: 11/30/17 11:47 Last Admin: 11/30/17 11:50 Dose: 5 ml Morphine Sulfate (Morphine) 2 mg IVPUSH Q4H PRN PRN Reason: Pain (severe 7-10) Stop: 11/29/17 17:15 Potassium Chloride (Klor-Con M20) 40 meq PO ONETIME ONE Stop: 11/28/17 17:45 Last Admin: 11/28/17 17:51 Dose: Not Given - Exam Quality Assessment: Supplemental Oxygen General: Alert Lungs: Crackles Cardiovascular: Regular Rhythm, Tachycardia GI/Abdominal Exam: Abnormal Bowel Sounds Extremities: Non-Tender - Problem List & Annotations (1) Pancreatic cancer metastasized to liver SNOMED Code(s): 989834107 Code(s): C25.9 - MALIGNANT NEOPLASM OF PANCREAS, UNSPECIFIED; C78.7 - SECONDARY MALIG NEOPLASM OF LIVER AND INTRAHEPATIC BILE DUCT Status: Acute Current Visit: Yes (2) Generalized weakness SNOMED Code(s): 15751786 Code(s): R53.1 - WEAKNESS Status: Acute Current Visit: Yes (3) Anemia SNOMED Code(s): 895105956 Code(s): D64.9 - ANEMIA, UNSPECIFIED Status: Acute Current Visit: No (4) Hyperbilirubinemia SNOMED Code(s): 22554132 Code(s): E80.6 - OTHER DISORDERS OF BILIRUBIN METABOLISM Status: Acute Current Visit: No - Problem List Review Problem List Initiated/Reviewed/Updated: Yes - Plan Plan:: This is a 37-year-old male with a history of schizophrenia and likely pancreatic cancer presenting with weakness and jaundice with elevated LFTs, WBC , elevated lactic acid level indicating sepsis secondary to urinary tract infection complicated by a metastatic pancreatic cancer diagnosis. Assessment/plan #1. Leukocytosis with WBC count of greater than 18 primarily neutrophilic in nature, lactic acid did decrease to within normal limits after her third assessment, however due to map instability and blood pressure instability after the patient was transferred to the ICU and we are getting another lactic acid to see whether the patient is now once again septic. #2. Hemodynamic instability with blood pressures systolically in the 80s diastolically in the 40s, with maps in the high 50s to low 60s. #3. Anemia, weakness likely secondary to #1 and diagnosis of pancreatic metastatic cancer to the liver. #4. Elevated LFTs, bilirubin, alk phosphatase secondary to pancreatic metastatic cancer to the liver. #5. Ostomy bag likely secondary to procedure for pancreatic metastatic cancer shall find out from [facility]. For the urinary tract infection causing sepsis we shall be placing the patient on vancomycin, Zosyn, Levaquin for antibiotic coverage until the urinary culture comes back as well as blood cultures come back. At this point in time the important aspect is to decide whether or not this patient should be placed on comfort care/hospice care. I had an extensive discussion with the family and the patient in terms of what their wishes and what the patient's wishes are the family will sit down together throughout the day today to discuss and decide how to move forward. The patient has a very bleak outlook in terms of his recovery secondary to his stage IV pancreatic cancer and current symptoms once the family has made the decision we will decide how to move forward. Patient is admitted to inpatient anticipated length of stay is greater than 2 midnights
--- NOTE | 2017-12-01 16:28 | PCM.SN ---
- Free Text/Narrative Note: pt seen, chart reviewed; uti, anemia, lethargic and weak; await outside record; agree with iv abx, will need to address code status [id number]
--- NOTE | 2017-12-01 16:31 | PCM.SURGPN ---
- General Info Date of Service: 12/01/17 Functional Status: Reports: Pain Controlled - Review of Systems General: Reports: No Symptoms Gastrointestinal: Reports: No Symptoms ("denied abd pain", and not hungry) - Patient Data Vitals - Most Recent: Last Vital Signs Temp 98 F 12/01/17 16:00 Pulse 129 H 11/29/17 19:00 Resp 19 12/01/17 16:00 BP 105/65 12/01/17 16:00 Pulse Ox 99 12/01/17 16:00 Weight - Most Recent: 321 lb 6.943 oz I&O - Last 24 Hours: Intake & Output 12/01/17 12/01/17 12/01/17 06:59 14:59 22:59 Intake Total 1875 200 400 Output Total 1800 750 Balance 75 200 -350 Lab Results Last 24 Hrs: Laboratory Results - last 24 hr 12/01/17 12/01/17 12/01/17 Range/Units 05:27 05:27 05:27 WBC 23.14 H (4.0-11.0) K/uL RBC 3.01 L (4.50-5.90) M/uL Hgb 7.7 L (13.0-17.0) g/dL Hct 24.2 L (38.0-50.0) % MCV 80.4 (80.0-98.0) fL MCH 25.6 L (27.0-32.0) pg MCHC 31.8 (31.0-37.0) g/dL RDW Std Deviation 49.2 (28.0-62.0) fl RDW Coeff of Lebron 17 H (11.0-15.0) % Plt Count 72 L (150-400) K/uL Add Manual Diff YES Neutrophils % (Manual) 86 H (48.0-80.0) % Band Neutrophils % 7 % Lymphocytes % (Manual) 3 L (16.0-40.0) % Monocytes % (Manual) 4 (0.0-15.0) % Nucleated RBC % 0.0 /100WBC Absolute Seg Neuts 19.9 H (1.4-5.7) Band Neutrophils # 1.6 Lymphocytes # (Manual) 0.7 (0.6-2.4) Monocytes # (Manual) 0.9 H (0.0-0.8) Nucleated RBCs # 0 K/uL INR 1.12 Sodium 139 (136-148) mmol/L Potassium 3.4 L (3.5-5.1) mmol/L Chloride 111 H (98-107) mmol/L Carbon Dioxide 21.9 (21.0-32.0) mmol/L BUN 11 (7.0-18.0) mg/dL Creatinine 0.8 (0.8-1.3) mg/dL Est Cr Clr Drug Dosing 148.42 mL/min Estimated GFR (MDRD) > 60.0 ml/min Glucose 93 (74-106) mg/dL Calcium 7.6 L (8.5-10.1) mg/dL Phosphorus 2.4 L (2.6-4.7) mg/dL Magnesium 1.7 (1.5-2.0) mg/dL Total Bilirubin 11.1 H (0.2-1.0) mg/dL AST 92 H (15-37) U/L ALT 57 (14-63) U/L Alkaline Phosphatase 380 H (46-116) U/L Ammonia (19-54) ug/dL Total Protein 5.0 L (6.4-8.2) g/dL Albumin 1.1 L (3.4-5.0) g/dL Globulin 3.9 H (2.0-3.5) g/dL Albumin/Globulin Ratio 0.3 L (1.3-2.8) 12/01/17 Range/Units 05:27 WBC (4.0-11.0) K/uL RBC (4.50-5.90) M/uL Hgb (13.0-17.0) g/dL Hct (38.0-50.0) % MCV (80.0-98.0) fL MCH (27.0-32.0) pg MCHC (31.0-37.0) g/dL RDW Std Deviation (28.0-62.0) fl RDW Coeff of Lebron (11.0-15.0) % Plt Count (150-400) K/uL Add Manual Diff Neutrophils % (Manual) (48.0-80.0) % Band Neutrophils % % Lymphocytes % (Manual) (16.0-40.0) % Monocytes % (Manual) (0.0-15.0) % Nucleated RBC % /100WBC Absolute Seg Neuts (1.4-5.7) Band Neutrophils # Lymphocytes # (Manual) (0.6-2.4) Monocytes # (Manual) (0.0-0.8) Nucleated RBCs # K/uL INR Sodium (136-148) mmol/L Potassium (3.5-5.1) mmol/L Chloride (98-107) mmol/L Carbon Dioxide (21.0-32.0) mmol/L BUN (7.0-18.0) mg/dL Creatinine (0.8-1.3) mg/dL Est Cr Clr Drug Dosing mL/min Estimated GFR (MDRD) ml/min Glucose (74-106) mg/dL Calcium (8.5-10.1) mg/dL Phosphorus (2.6-4.7) mg/dL Magnesium (1.5-2.0) mg/dL Total Bilirubin (0.2-1.0) mg/dL AST (15-37) U/L ALT (14-63) U/L Alkaline Phosphatase (46-116) U/L Ammonia 31 (19-54) ug/dL Total Protein (6.4-8.2) g/dL Albumin (3.4-5.0) g/dL Globulin (2.0-3.5) g/dL Albumin/Globulin Ratio (1.3-2.8) Erick Results Last 24 Hrs: Microbiology 11/28/17 17:36 Aerobic Blood Culture - Final Blood Anaerobic Blood Culture - Final 11/28/17 17:30 Aerobic Blood Culture - Final Blood Anaerobic Blood Culture - Final Med Orders - Current: Current Medications Acetaminophen (Tylenol) 650 mg PO Q4H PRN PRN Reason: Pain (Mild 1-3)/fever Last Admin: 11/28/17 20:15 Dose: 650 mg Albuterol/Ipratropium (Duoneb 3.0-0.5 Mg/3 Ml) 3 ml NEB Q4HRRT PRN PRN Reason: Wheezing Last Admin: 12/01/17 12:16 Dose: 3 ml Clozapine (Clozapine) 100 mg PO ACBREAKFAST CHLOE Last Admin: 12/01/17 08:38 Dose: Not Given Clozapine (Clozapine) 200 mg PO BEDTIME CHLOE Last Admin: 11/30/17 20:42 Dose: 200 mg Escitalopram Oxalate (Lexapro) 30 mg PO DAILY [facility] Last Admin: 12/01/17 09:42 Dose: Not Given Piperacillin Sod/Tazobactam (Sod 4.5 gm/ Sodium Chloride) 100 mls @ 100 mls/hr IV Q6H [facility] Last Admin: 12/01/17 11:19 Dose: 100 mls/hr Sodium Chloride (Normal Saline) 1,000 mls @ 150 mls/hr IV ASDIRECTED [facility] Last Admin: 12/01/17 06:13 Dose: 150 mls/hr Meropenem 1 gm/ Sodium (Chloride) 100 mls @ 200 mls/hr IV Q8H [facility] Last Admin: 12/01/17 09:43 Dose: 200 mls/hr Vancomycin HCl 1,500 mg/ (Sodium Chloride) 500 mls @ 250 mls/hr IV Q12H [facility] Last Admin: 12/01/17 12:58 Dose: 250 mls/hr Omeprazole (Omeprazole) 20 mg PO ACBREAKFAST [facility] Last Admin: 12/01/17 08:38 Dose: Not Given Ondansetron HCl (Zofran) 4 mg IVPUSH Q4H PRN PRN Reason: Nausea/Vomiting Last Admin: 11/30/17 22:49 Dose: 4 mg Sodium Chloride (Saline Flush) 10 ml FLUSH ASDIRECTED PRN PRN Reason: Keep Vein Open Sodium Chloride (Saline Flush) 2.5 ml FLUSH ASDIRECTED PRN PRN Reason: Keep Vein Open Vancomycin HCl (Pharmacy To Dose - Vancomycin) 1 dose .XX ASDIRECTED [facility] Discontinued Medications Albuterol/Ipratropium (Duoneb 3.0-0.5 Mg/3 Ml) 3 ml NEB Q4HRRT [facility] Last Admin: 11/30/17 13:48 Dose: 3 ml Calcium Carbonate/Glycine (Tums) 1,000 mg PO ONETIME ONE Stop: 11/29/17 10:54 Last Admin: 11/29/17 11:17 Dose: 1,000 mg Calcium Carbonate/Glycine (Tums) 1,000 mg PO ONETIME ONE Stop: 11/29/17 11:16 Last Admin: 11/29/17 11:19 Dose: Not Given Heparin Sodium (Porcine) (Heparin Lock Flush 100 Units/Ml) 300 unit FLUSH ASDIRECTED ONE Stop: 11/30/17 11:41 Last Admin: 11/30/17 11:51 Dose: 300 unit Levofloxacin/Dextrose 750 mg/ (Premix) 150 mls @ 100 mls/hr IV ONETIME ONE Stop: 11/28/17 16:53 Last Admin: 11/28/17 15:50 Dose: 100 mls/hr Sodium Chloride (Normal Saline) 1,000 mls @ 125 mls/hr IV STAT CHLOE Last Infusion: 11/28/17 17:34 Dose: 0 mls/hr Sodium Chloride (Normal Saline) 1,000 mls @ 999 mls/hr IV .Bolus ONE Stop: 11/28/17 18:05 Last Admin: 11/28/17 17:33 Dose: 999 mls/hr Sodium Chloride (Normal Saline) 1,000 mls @ 125 mls/hr IV ASDIRECTED CHLOE Vancomycin HCl 1,500 mg/ (Sodium Chloride) 500 mls @ 250 mls/hr IV Q8H [facility] Last Admin: 11/28/17 19:17 Dose: Not Given Levofloxacin/Dextrose 750 mg/ (Premix) 150 mls @ 100 mls/hr IV Q24H [facility] Levofloxacin/Dextrose 750 mg/ (Premix) 150 mls @ 100 mls/hr IV Q24H [facility] Last Admin: 11/30/17 17:30 Dose: 100 mls/hr Potassium Chloride/Sodium Chloride (Normal Saline With 40 Meq Kcl) 1,000 mls @ 150 mls/hr IV ASDIRECTED CHLOE Stop: 11/30/17 00:24 Last Admin: 11/29/17 01:44 Dose: 150 mls/hr Sodium Chloride (Normal Saline) 1,000 mls @ 999 mls/hr IV STAT CHLOE Stop: 11/28/17 19:46 Last Admin: 11/28/17 19:20 Dose: 999 mls/hr Vancomycin HCl 1,500 mg/ (Sodium Chloride) 500 mls @ 250 mls/hr IV Q8H [facility] Last Admin: 11/30/17 12:48 Dose: Not Given Magnesium Sulfate 4 gm/ Premix 100 mls @ 50 mls/hr IV ONETIME ONE Stop: 11/28/17 21:22 Last Admin: 11/28/17 20:04 Dose: 50 mls/hr Sodium Chloride (Normal Saline) 1,000 mls @ 999 mls/hr IV .BOLUS ONE Stop: 11/29/17 00:54 Last Admin: 11/29/17 00:18 Dose: 999 mls/hr Potassium Chloride/Sodium Chloride (Normal Saline With 40 Meq Kcl) 1,000 mls @ 150 mls/hr IV ASDIRECTED CHLOE Stop: 11/29/17 17:39 Last Admin: 11/29/17 11:27 Dose: 150 mls/hr Sodium Chloride (Normal Saline) 1,000 mls @ 999 mls/hr IV .BOLUS ONE Stop: 11/29/17 16:52 Last Admin: 11/29/17 16:58 Dose: 999 mls/hr Sodium Chloride (Normal Saline) 1,000 mls @ 999 mls/hr IV ASDIRECTED [facility] Last Admin: 11/30/17 00:05 Dose: 999 mls/hr Sodium Chloride (Normal Saline) 1,000 mls @ 999 mls/hr IV STAT [facility] Last Admin: 11/30/17 09:26 Dose: 999 mls/hr Lidocaine (Xylocaine-Mpf 2%) Confirm Administered Dose 5 ml .ROUTE .STK-MED ONE Stop: 11/29/17 17:10 Last Admin: 11/29/17 17:29 Dose: 5 ml Lidocaine HCl (Xylocaine-Mpf 1%) 5 ml INJECT ONETIME STA Stop: 11/30/17 11:47 Last Admin: 11/30/17 11:50 Dose: 5 ml Morphine Sulfate (Morphine) 2 mg IVPUSH Q4H PRN PRN Reason: Pain (severe 7-10) Stop: 11/29/17 17:15 Potassium Chloride (Klor-Con M20) 40 meq PO ONETIME ONE Stop: 11/28/17 17:45 Last Admin: 11/28/17 17:51 Dose: Not Given - Exam GI/Abdominal Exam: Soft, No Distention (ileostomy pink w output) - Problem List Review Problem List Initiated/Reviewed/Updated: Yes - My Orders Last 24 Hours: Active Orders 24 hr Category Date Time Status CBC WITH AUTO DIFF [HEME] AM Lab 12/02/17 05:11 Ordered CBC WITH AUTO DIFF [HEME] AM Lab 12/03/17 05:11 Ordered COMPREHENSIVE METABOLIC PN,CMP [CHEM] AM Lab 12/02/17 05:11 Ordered MAGNESIUM [CHEM] AM Lab 12/02/17 05:11 Ordered PHOSPHORUS [CHEM] AM Lab 12/02/17 05:11 Ordered VANCOMYCIN TROUGH [CHEM] Routine Lab 12/02/17 14:00 Ordered Escitalopram [Lexapro] Med 12/01/17 09:00 Active 30 mg PO DAILY Omeprazole Med 12/01/17 07:30 Active 20 mg PO ACBREAKFAST cloZAPine Med 12/01/17 07:30 Active 100 mg PO ACBREAKFAST cloZAPine Med 11/30/17 21:00 Active 200 mg PO BEDTIME Medication Orders Acetaminophen (Tylenol) 650 mg PO Q4H PRN PRN Reason: Pain (Mild 1-3)/fever Last Admin: 11/28/17 20:15 Dose: 650 mg Albuterol/Ipratropium (Duoneb 3.0-0.5 Mg/3 Ml) 3 ml NEB Q4HRRT PRN PRN Reason: Wheezing Last Admin: 12/01/17 12:16 Dose: 3 ml Admin: 11/30/17 23:17 Dose: 3 ml Clozapine (Clozapine) 100 mg PO ACBREAKFAST [facility] Last Admin: 12/01/17 08:38 Dose: Not Given Clozapine (Clozapine) 200 mg PO BEDTIME CHLOE Last Admin: 11/30/17 20:42 Dose: 200 mg Escitalopram Oxalate (Lexapro) 30 mg PO DAILY [facility] Last Admin: 12/01/17 09:42 Dose: Not Given Piperacillin Sod/Tazobactam (Sod 4.5 gm/ Sodium Chloride) 100 mls @ 100 mls/hr IV Q6H [facility] Last Admin: 12/01/17 11:19 Dose: 100 mls/hr Infusion: 12/01/17 06:55 Dose: 100 mls/hr Admin: 12/01/17 05:55 Dose: 100 mls/hr Infusion: 12/01/17 00:17 Dose: 100 mls/hr Admin: 11/30/17 23:17 Dose: 100 mls/hr Infusion: 11/30/17 19:24 Dose: 100 mls/hr Admin: 11/30/17 18:24 Dose: 100 mls/hr Infusion: 11/30/17 13:18 Dose: 100 mls/hr Admin: 11/30/17 12:18 Dose: 100 mls/hr Infusion: 11/30/17 06:32 Dose: 100 mls/hr Admin: 11/30/17 05:32 Dose: 100 mls/hr Infusion: 11/30/17 00:46 Dose: 100 mls/hr Admin: 11/29/17 23:46 Dose: 100 mls/hr Infusion: 11/29/17 18:07 Dose: 100 mls/hr Admin: 11/29/17 17:07 Dose: 100 mls/hr Infusion: 11/29/17 12:23 Dose: 100 mls/hr Admin: 11/29/17 11:23 Dose: 100 mls/hr Infusion: 11/29/17 06:14 Dose: 100 mls/hr Admin: 11/29/17 05:14 Dose: 100 mls/hr Infusion: 11/29/17 00:46 Dose: 100 mls/hr Admin: 11/28/17 23:46 Dose: 100 mls/hr Infusion: 11/28/17 19:06 Dose: 100 mls/hr Admin: 11/28/17 18:06 Dose: 100 mls/hr Sodium Chloride (Normal Saline) 1,000 mls @ 150 mls/hr IV ASDIRECTED [facility] Last Admin: 12/01/17 06:13 Dose: 150 mls/hr Infusion: 12/01/17 01:13 Dose: 150 mls/hr Admin: 11/30/17 18:32 Dose: 150 mls/hr Infusion: 11/30/17 12:19 Dose: 150 mls/hr Admin: 11/30/17 05:38 Dose: 150 mls/hr Infusion: 11/30/17 03:15 Dose: 150 mls/hr Admin: 11/29/17 20:34 Dose: 150 mls/hr Infusion: 11/29/17 15:20 Dose: 150 mls/hr Admin: 11/29/17 08:39 Dose: 150 mls/hr Infusion: 11/29/17 08:21 Dose: 150 mls/hr Admin: 11/29/17 01:40 Dose: 150 mls/hr Meropenem 1 gm/ Sodium (Chloride) 100 mls @ 200 mls/hr IV Q8H [facility] Last Admin: 12/01/17 09:43 Dose: 200 mls/hr Infusion: 12/01/17 03:23 Dose: 200 mls/hr Admin: 12/01/17 02:53 Dose: 200 mls/hr Infusion: 11/30/17 17:41 Dose: 200 mls/hr Admin: 11/30/17 17:11 Dose: 200 mls/hr Infusion: 11/30/17 10:23 Dose: 200 mls/hr Admin: 11/30/17 09:53 Dose: 200 mls/hr Vancomycin HCl 1,500 mg/ (Sodium Chloride) 500 mls @ 250 mls/hr IV Q12H [facility] Last Admin: 12/01/17 12:58 Dose: 250 mls/hr Infusion: 12/01/17 02:38 Dose: 250 mls/hr Admin: 12/01/17 00:38 Dose: 250 mls/hr Infusion: 11/30/17 15:30 Dose: 250 mls/hr Admin: 11/30/17 13:30 Dose: 250 mls/hr Omeprazole (Omeprazole) 20 mg PO ACBREAKFAST [facility] Last Admin: 12/01/17 08:38 Dose: Not Given Ondansetron HCl (Zofran) 4 mg IVPUSH Q4H PRN PRN Reason: Nausea/Vomiting Last Admin: 11/30/17 22:49 Dose: 4 mg Sodium Chloride (Saline Flush) 10 ml FLUSH ASDIRECTED PRN PRN Reason: Keep Vein Open Sodium Chloride (Saline Flush) 2.5 ml FLUSH ASDIRECTED PRN PRN Reason: Keep Vein Open Vancomycin HCl (Pharmacy To Dose - Vancomycin) 1 dose .XX ASDIRECTED CHLOE - Assessment Assessment (Free Text/Narrative):: urosepsie, agree with continue abx iv; plt down to 42; prognosis guarding; understand DNR/DNI - Plan Plan (Free Text/Narrative):: urosepsie, agree with continue abx iv; plt down to 42; prognosis guarding; understand DNR/DNI
--- NOTE | 2017-12-01 22:12 | CONS ---
DATE OF CONSULTATION: 11/28/2017 DATE OF : 1980 PRIMARY CARE PHYSICIAN: None PCP CONCERNING QUESTION: Increasing weakness. HISTORY OF THE PRESENT ILLNESS: The patient is a 37-year-old gentleman and obese, BMI of 41, has been followed in my office for an unexplained anemic found to requiring transfusion almost like 6 months ago and subsequently his workup included a colonoscopy. 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 The patient has surgery done and operative note is currently not available, and the patient has been at home for about 3 months per the patient. He is getting more and more increasingly weak and he was seen in the emergency room, was now admitted for further management. The patient remarked that he has no pain. He just does not have an appetite and he is very weak and also he looked jaundiced. PAST MEDICAL HISTORY: Please refer to previous admission for detail. PAST SURGICAL HISTORY: Please refer to previous admission for detail. ALLERGIES: Please refer to nursing for details. MEDICATIONS: Please refer to nursing for details. SOCIAL HISTORY: The patient is not a smoker and denied alcohol use. FAMILY HISTORY: Noncontributory. PHYSICAL EXAMINATION: GENERAL: A very ill-appearing gentleman and seemed looked like he lost a lot of weight and absolutely jaundiced to the face and in no acute distress. HEENT: Normocephalic and atraumatic. Sclerae are icteric. LUNGS: Clear to auscultation. ABDOMEN: Soft and ileostomy is pink with output and LOGAN with output and not cloudy and not serosanguineous. LABORATORY DATA: Upon consultation, white count is 22, H and H is 8.7 and 27, and platelets is 41. BUN is 24, creatinine is 1.2. Ammonia is not available. Alkaline phosphatase is 318 and total bilirubin is 8.7. UA positive nitrite, large bilirubin, and bacteria, likely UTI. IMPRESSION: The patient is anemic and has urinary tract infection and admitted for further management and the patient absolutely denied any pain. We will follow the patient with you and await medical records to delineate the surgery he had outside the facility. We will follow the patient. Thank you for the kind referral. RADHA HO /[id number]
[2017-12-02] MEDS: Meropenem 1 GM in Sodium Chloride 0.9% 100 ML IV SCH ×3 (02:51→17:38)
[2017-12-02] MEDS: Sodium Chloride 0.9% 1,000 ML IV SCH ×3 (04:04→18:46)
[2017-12-02] MEDS: Piperacillin/Tazobactam 4.5 GM in Sodium Chloride 0.9% 100 ML IV SCH ×4 (05:53→23:00)
[2017-12-02 06:25] LABS: CHLORIDE,CL 108 mmol/L (98-107); SODIUM,NA 138 mmol/L (136-148)
[2017-12-02] MEDS: Omeprazole 20 MG Cap.CR PO SCH (06:33)
[2017-12-02] MEDS: cloZAPine 100 MG Tab PO SCH ×2 (06:33→20:12)
[2017-12-02] MEDS: Escitalopram 10 MG Tab PO SCH (09:15)
--- NOTE | 2017-12-02 18:39 | PCM.PN ---
- General Info Date of Service: 12/02/17 Subjective Update: An extensive talk with Jed and his family today and we have decided to move towards comfort care/hospice. The discussion now will be had whether or not Jed's family is able to take him home and have hospice done at home or whether Jed will go to [facility] for his end-of-life care. - Patient Data Vitals - Most Recent: Last Vital Signs Temp 37.1 C 12/02/17 17:00 Pulse 129 H 11/29/17 19:00 Resp 14 12/02/17 18:00 BP 102/53 L 12/02/17 18:00 Pulse Ox 99 12/02/17 18:00 Weight - Most Recent: 152 kg I&O - Last 24 Hours: Intake & Output 12/02/17 12/02/17 12/02/17 06:59 14:59 22:59 Intake Total 2100 1400 2881 Output Total 650 350 750 Balance 1450 1050 2131 Lab Results Last 24 Hours: Laboratory Results - last 24 hr 12/01/17 12/02/17 12/02/17 Range/Units 17:54 05:45 05:45 WBC 22.55 H (4.0-11.0) K/uL RBC 2.89 L (4.50-5.90) M/uL Hgb 7.5 L (13.0-17.0) g/dL Hct 23.0 L (38.0-50.0) % MCV 79.6 L (80.0-98.0) fL MCH 26.0 L (27.0-32.0) pg MCHC 32.6 (31.0-37.0) g/dL RDW Std Deviation 49.2 (28.0-62.0) fl RDW Coeff of Lebron 17 H (11.0-15.0) % Plt Count 101 L (150-400) K/uL Add Manual Diff YES Neutrophils % (Manual) 80 (48.0-80.0) % Band Neutrophils % 3 % Lymphocytes % (Manual) 11 L (16.0-40.0) % Monocytes % (Manual) 5 (0.0-15.0) % Eosinophils % (Manual) 1 (0.0-7.0) % Nucleated RBC % 0.0 /100WBC Absolute Seg Neuts 18.0 H (1.4-5.7) Band Neutrophils # 0.7 Lymphocytes # (Manual) 2.5 H (0.6-2.4) Monocytes # (Manual) 1.1 H (0.0-0.8) Eosinophils # (Manual) 0.2 (0.0-0.7) Nucleated RBCs # 0 K/uL Sodium 138 (136-148) mmol/L Potassium 3.4 L (3.5-5.1) mmol/L Chloride 108 H (98-107) mmol/L Carbon Dioxide 21.9 (21.0-32.0) mmol/L BUN 9 (7.0-18.0) mg/dL Creatinine 0.7 L (0.8-1.3) mg/dL Est Cr Clr Drug Dosing 169.62 mL/min Estimated GFR (MDRD) > 60.0 ml/min Glucose 81 (74-106) mg/dL Calcium 7.9 L (8.5-10.1) mg/dL Phosphorus 2.6 (2.6-4.7) mg/dL Magnesium 1.5 (1.5-2.0) mg/dL Total Bilirubin 12.5 H (0.2-1.0) mg/dL AST 87 H (15-37) U/L ALT 60 (14-63) U/L Alkaline Phosphatase 573 H (46-116) U/L Ammonia 39 (19-54) ug/dL Total Protein 5.2 L (6.4-8.2) g/dL Albumin 1.1 L (3.4-5.0) g/dL Globulin 4.1 H (2.0-3.5) g/dL Albumin/Globulin Ratio 0.3 L (1.3-2.8) Vancomycin Trough (5.0-10.0) ug/mL 12/02/17 Range/Units 11:54 WBC (4.0-11.0) K/uL RBC (4.50-5.90) M/uL Hgb (13.0-17.0) g/dL Hct (38.0-50.0) % MCV (80.0-98.0) fL MCH (27.0-32.0) pg MCHC (31.0-37.0) g/dL RDW Std Deviation (28.0-62.0) fl RDW Coeff of Lebron (11.0-15.0) % Plt Count (150-400) K/uL Add Manual Diff Neutrophils % (Manual) (48.0-80.0) % Band Neutrophils % % Lymphocytes % (Manual) (16.0-40.0) % Monocytes % (Manual) (0.0-15.0) % Eosinophils % (Manual) (0.0-7.0) % Nucleated RBC % /100WBC Absolute Seg Neuts (1.4-5.7) Band Neutrophils # Lymphocytes # (Manual) (0.6-2.4) Monocytes # (Manual) (0.0-0.8) Eosinophils # (Manual) (0.0-0.7) Nucleated RBCs # K/uL Sodium (136-148) mmol/L Potassium (3.5-5.1) mmol/L Chloride (98-107) mmol/L Carbon Dioxide (21.0-32.0) mmol/L BUN (7.0-18.0) mg/dL Creatinine (0.8-1.3) mg/dL Est Cr Clr Drug Dosing mL/min Estimated GFR (MDRD) ml/min Glucose (74-106) mg/dL Calcium (8.5-10.1) mg/dL Phosphorus (2.6-4.7) mg/dL Magnesium (1.5-2.0) mg/dL Total Bilirubin (0.2-1.0) mg/dL AST (15-37) U/L ALT (14-63) U/L Alkaline Phosphatase (46-116) U/L Ammonia (19-54) ug/dL Total Protein (6.4-8.2) g/dL Albumin (3.4-5.0) g/dL Globulin (2.0-3.5) g/dL Albumin/Globulin Ratio (1.3-2.8) Vancomycin Trough 18.3 H (5.0-10.0) ug/mL Med Orders - Current: Current Medications Acetaminophen (Tylenol) 650 mg PO Q4H PRN PRN Reason: Pain (Mild 1-3)/fever Last Admin: 11/28/17 20:15 Dose: 650 mg Albuterol/Ipratropium (Duoneb 3.0-0.5 Mg/3 Ml) 3 ml NEB Q4HRRT PRN PRN Reason: Wheezing Last Admin: 12/01/17 12:16 Dose: 3 ml Clozapine (Clozapine) 100 mg PO ACBREAKFAST PENDING SALE TO [facility] Last Admin: 12/02/17 06:33 Dose: 100 mg Clozapine (Clozapine) 200 mg PO BEDTIME PENDING SALE TO [facility] Last Admin: 12/01/17 20:42 Dose: 200 mg Escitalopram Oxalate (Lexapro) 30 mg PO DAILY PENDING SALE TO [facility] Last Admin: 12/02/17 09:15 Dose: 30 mg Piperacillin Sod/Tazobactam (Sod 4.5 gm/ Sodium Chloride) 100 mls @ 100 mls/hr IV Q6H PENDING SALE TO [facility] Last Admin: 12/02/17 16:46 Dose: 100 mls/hr Sodium Chloride (Normal Saline) 1,000 mls @ 150 mls/hr IV ASDIRECTED PENDING SALE TO [facility] Last Admin: 12/02/17 12:14 Dose: 150 mls/hr Meropenem 1 gm/ Sodium (Chloride) 100 mls @ 200 mls/hr IV Q8H PENDING SALE TO [facility] Last Admin: 12/02/17 17:38 Dose: 200 mls/hr Vancomycin HCl 1,500 mg/ (Sodium Chloride) 500 mls @ 250 mls/hr IV Q12H PENDING SALE TO [facility] Last Admin: 12/02/17 13:28 Dose: 250 mls/hr Omeprazole (Omeprazole) 20 mg PO ACBREAKFAST PENDING SALE TO [facility] Last Admin: 12/02/17 06:33 Dose: 20 mg Ondansetron HCl (Zofran) 4 mg IVPUSH Q4H PRN PRN Reason: Nausea/Vomiting Last Admin: 11/30/17 22:49 Dose: 4 mg Sodium Chloride (Saline Flush) 10 ml FLUSH ASDIRECTED PRN PRN Reason: Keep Vein Open Sodium Chloride (Saline Flush) 2.5 ml FLUSH ASDIRECTED PRN PRN Reason: Keep Vein Open Vancomycin HCl (Pharmacy To Dose - Vancomycin) 1 dose .XX ASDIRECTED PENDING SALE TO [facility] Discontinued Medications Albuterol/Ipratropium (Duoneb 3.0-0.5 Mg/3 Ml) 3 ml NEB Q4HRRT PENDING SALE TO [facility] Last Admin: 11/30/17 13:48 Dose: 3 ml Calcium Carbonate/Glycine (Tums) 1,000 mg PO ONETIME ONE Stop: 11/29/17 10:54 Last Admin: 11/29/17 11:17 Dose: 1,000 mg Calcium Carbonate/Glycine (Tums) 1,000 mg PO ONETIME ONE Stop: 11/29/17 11:16 Last Admin: 11/29/17 11:19 Dose: Not Given Heparin Sodium (Porcine) (Heparin Lock Flush 100 Units/Ml) 300 unit FLUSH ASDIRECTED ONE Stop: 11/30/17 11:41 Last Admin: 11/30/17 11:51 Dose: 300 unit Levofloxacin/Dextrose 750 mg/ (Premix) 150 mls @ 100 mls/hr IV ONETIME ONE Stop: 11/28/17 16:53 Last Admin: 11/28/17 15:50 Dose: 100 mls/hr Sodium Chloride (Normal Saline) 1,000 mls @ 125 mls/hr IV STAT PENDING SALE TO [facility] Last Infusion: 11/28/17 17:34 Dose: 0 mls/hr Sodium Chloride (Normal Saline) 1,000 mls @ 999 mls/hr IV .Bolus ONE Stop: 11/28/17 18:05 Last Admin: 11/28/17 17:33 Dose: 999 mls/hr Sodium Chloride (Normal Saline) 1,000 mls @ 125 mls/hr IV ASDIRECTED PENDING SALE TO [facility] Vancomycin HCl 1,500 mg/ (Sodium Chloride) 500 mls @ 250 mls/hr IV Q8H PENDING SALE TO [facility] Last Admin: 11/28/17 19:17 Dose: Not Given Levofloxacin/Dextrose 750 mg/ (Premix) 150 mls @ 100 mls/hr IV Q24H CHLOE Levofloxacin/Dextrose 750 mg/ (Premix) 150 mls @ 100 mls/hr IV Q24H PENDING SALE TO [facility] Last Admin: 11/30/17 17:30 Dose: 100 mls/hr Potassium Chloride/Sodium Chloride (Normal Saline With 40 Meq Kcl) 1,000 mls @ 150 mls/hr IV ASDIRECTED CHLOE Stop: 11/30/17 00:24 Last Admin: 11/29/17 01:44 Dose: 150 mls/hr Sodium Chloride (Normal Saline) 1,000 mls @ 999 mls/hr IV STAT CHLOE Stop: 11/28/17 19:46 Last Admin: 11/28/17 19:20 Dose: 999 mls/hr Vancomycin HCl 1,500 mg/ (Sodium Chloride) 500 mls @ 250 mls/hr IV Q8H PENDING SALE TO [facility] Last Admin: 11/30/17 12:48 Dose: Not Given Magnesium Sulfate 4 gm/ Premix 100 mls @ 50 mls/hr IV ONETIME ONE Stop: 11/28/17 21:22 Last Admin: 11/28/17 20:04 Dose: 50 mls/hr Sodium Chloride (Normal Saline) 1,000 mls @ 999 mls/hr IV .BOLUS ONE Stop: 11/29/17 00:54 Last Admin: 11/29/17 00:18 Dose: 999 mls/hr Potassium Chloride/Sodium Chloride (Normal Saline With 40 Meq Kcl) 1,000 mls @ 150 mls/hr IV ASDIRECTED CHLOE Stop: 11/29/17 17:39 Last Admin: 11/29/17 11:27 Dose: 150 mls/hr Sodium Chloride (Normal Saline) 1,000 mls @ 999 mls/hr IV .BOLUS ONE Stop: 11/29/17 16:52 Last Admin: 11/29/17 16:58 Dose: 999 mls/hr Sodium Chloride (Normal Saline) 1,000 mls @ 999 mls/hr IV ASDIRECTED PENDING SALE TO [facility] Last Admin: 11/30/17 00:05 Dose: 999 mls/hr Sodium Chloride (Normal Saline) 1,000 mls @ 999 mls/hr IV STAT PENDING SALE TO [facility] Last Admin: 11/30/17 09:26 Dose: 999 mls/hr Lidocaine (Xylocaine-Mpf 2%) Confirm Administered Dose 5 ml .ROUTE .STK-MED ONE Stop: 11/29/17 17:10 Last Admin: 11/29/17 17:29 Dose: 5 ml Lidocaine HCl (Xylocaine-Mpf 1%) 5 ml INJECT ONETIME STA Stop: 11/30/17 11:47 Last Admin: 11/30/17 11:50 Dose: 5 ml Morphine Sulfate (Morphine) 2 mg IVPUSH Q4H PRN PRN Reason: Pain (severe 7-10) Stop: 11/29/17 17:15 Potassium Chloride (Klor-Con M20) 40 meq PO ONETIME ONE Stop: 11/28/17 17:45 Last Admin: 11/28/17 17:51 Dose: Not Given - Exam Quality Assessment: Supplemental Oxygen General: Alert, Oriented, Cooperative Lungs: Decreased Breath Sounds Cardiovascular: Regular Rhythm, Tachycardia GI/Abdominal Exam: Distended, Abnormal Bowel Sounds - Problem List & Annotations (1) Pancreatic cancer metastasized to liver SNOMED Code(s): 888132072 Code(s): C25.9 - MALIGNANT NEOPLASM OF PANCREAS, UNSPECIFIED; C78.7 - SECONDARY MALIG NEOPLASM OF LIVER AND INTRAHEPATIC BILE DUCT Status: Acute Current Visit: Yes (2) Generalized weakness SNOMED Code(s): 72777716 Code(s): R53.1 - WEAKNESS Status: Acute Current Visit: Yes (3) Anemia SNOMED Code(s): 399347180 Code(s): D64.9 - ANEMIA, UNSPECIFIED Status: Acute Current Visit: No (4) Hyperbilirubinemia SNOMED Code(s): 65534058 Code(s): E80.6 - OTHER DISORDERS OF BILIRUBIN METABOLISM Status: Acute Current Visit: No - Problem List Review Problem List Initiated/Reviewed/Updated: Yes - My Orders Last 24 Hours: My Active Orders 12/02/17 10:58 Consult to Hospice [CONS] Routine - Plan Plan:: This is a 37-year-old male with a history of schizophrenia and likely pancreatic cancer presenting with weakness and jaundice with elevated LFTs, WBC , elevated lactic acid level indicating sepsis secondary to urinary tract infection complicated by a metastatic pancreatic cancer diagnosis. Assessment/plan #1. Leukocytosis with WBC count of greater than 18 #2. Hemodynamic instability with blood pressures systolically in the 80s diastolically in the 40s, with maps in the high 50s to low 60s., She did however has been doing better recently and his noninvasive maps have been above 60s #3. Anemia, weakness likely secondary to #1 and diagnosis of pancreatic metastatic cancer to the liver. #4. Elevated LFTs, bilirubin, alk phosphatase secondary to pancreatic metastatic cancer to the liver. #5. Ostomy bag likely secondary to procedure for pancreatic metastatic cancer shall find out from [place]. For the urinary tract infection causing sepsis we shall be placing the patient on vancomycin, Zosyn, Levaquin for antibiotic coverage until the urinary culture comes back as well as blood cultures come back. Jed a family have decided to move towards comfort care/hospice care, primary concern at this point in time is whether or not we can have Jed go home and have a hospice done from home or whether we will be having Jed go to [facility]. We will be getting the [facility] paperwork going as far as hospice/comfort care over there. However in the meantime I will allow Jed's family to discuss with hospice the possibility of trying to do hospice care from home. She'll follow up tomorrow to reassess the hospice situation. For now we will continue to treat Jed's UTI infection, hemodynamic instability with fluid resuscitation and IV antibiotics.
[2017-12-03] MEDS: Meropenem 1 GM in Sodium Chloride 0.9% 100 ML IV SCH ×2 (02:22→09:00)
[2017-12-03] MEDS: Piperacillin/Tazobactam 4.5 GM in Sodium Chloride 0.9% 100 ML IV SCH ×2 (05:03→10:47)
[2017-12-03] MEDS: Sodium Chloride 0.9% 1,000 ML IV SCH (05:12)
[2017-12-03] MEDS: cloZAPine 100 MG Tab PO SCH (06:31)
[2017-12-03] MEDS: Omeprazole 20 MG Cap.CR PO SCH (06:31)
[2017-12-03 07:25] LABS: CHLORIDE,CL 109 mmol/L (98-107); SODIUM,NA 137 mmol/L (136-148)
[2017-12-03] MEDS: Escitalopram 10 MG Tab PO SCH (08:02)
[2017-12-03] MEDS: Morphine 10 MG/ML Syringe IV PRN ×3 (10:40→18:45)
--- NOTE | 2017-12-03 12:39 | PCM.SURGPN ---
- General Info Date of Service: 12/02/17 Functional Status: Reports: Pain Controlled - Review of Systems General: Reports: No Symptoms Gastrointestinal: Reports: No Symptoms - Patient Data Vitals - Most Recent: Last Vital Signs Temp 99 F 12/03/17 08:00 Pulse 108 H 12/03/17 08:00 Resp 20 12/03/17 08:00 BP 103/70 12/03/17 08:00 Pulse Ox 97 12/03/17 08:00 Weight - Most Recent: 348 lb 5.286 oz I&O - Last 24 Hours: Intake & Output 12/02/17 12/03/17 12/03/17 22:59 06:59 14:59 Intake Total 2881 3240 300 Output Total 750 1200 700 Balance 2131 2040 -400 Lab Results Last 24 Hrs: Laboratory Results - last 24 hr 12/02/17 12/03/17 12/03/17 Range/Units 11:54 05:20 05:30 WBC 23.93 H (4.0-11.0) K/uL RBC 2.76 L (4.50-5.90) M/uL Hgb 7.0 L (13.0-17.0) g/dL Hct 21.9 L (38.0-50.0) % MCV 79.3 L (80.0-98.0) fL MCH 25.4 L (27.0-32.0) pg MCHC 32.0 (31.0-37.0) g/dL RDW Std Deviation 49.6 (28.0-62.0) fl RDW Coeff of Lebron 17 H (11.0-15.0) % Plt Count 142 L (150-400) K/uL MPV 12.10 H (7.40-12.00) fL Add Manual Diff YES Neutrophils % (Manual) 82 H (48.0-80.0) % Band Neutrophils % 2 % Lymphocytes % (Manual) 9 L (16.0-40.0) % Monocytes % (Manual) 7 (0.0-15.0) % Nucleated RBC % 0.0 /100WBC Absolute Seg Neuts 19.6 H (1.4-5.7) Band Neutrophils # 0.5 Lymphocytes # (Manual) 2.2 (0.6-2.4) Monocytes # (Manual) 1.7 H (0.0-0.8) Nucleated RBCs # 0 K/uL Sodium 137 (136-148) mmol/L Potassium 3.3 L (3.5-5.1) mmol/L Chloride 109 H (98-107) mmol/L Carbon Dioxide 19.2 L (21.0-32.0) mmol/L BUN 8 (7.0-18.0) mg/dL Creatinine 0.8 (0.8-1.3) mg/dL Est Cr Clr Drug Dosing 148.42 mL/min Estimated GFR (MDRD) > 60.0 ml/min Glucose 96 (74-106) mg/dL Calcium 7.9 L (8.5-10.1) mg/dL Vancomycin Trough 18.3 H (5.0-10.0) ug/mL Med Orders - Current: Current Medications Acetaminophen (Tylenol) 650 mg PO Q4H PRN PRN Reason: Pain (Mild 1-3)/fever Last Admin: 11/28/17 20:15 Dose: 650 mg Albuterol/Ipratropium (Duoneb 3.0-0.5 Mg/3 Ml) 3 ml NEB Q4HRRT PRN PRN Reason: Wheezing Last Admin: 12/01/17 12:16 Dose: 3 ml Clozapine (Clozapine) 100 mg PO ACBREAKFAST [facility] Last Admin: 12/03/17 06:31 Dose: 100 mg Clozapine (Clozapine) 200 mg PO BEDTIME [facility] Last Admin: 12/02/17 20:12 Dose: 200 mg Escitalopram Oxalate (Lexapro) 30 mg PO DAILY [facility] Last Admin: 12/03/17 08:02 Dose: 30 mg Piperacillin Sod/Tazobactam (Sod 4.5 gm/ Sodium Chloride) 100 mls @ 100 mls/hr IV Q6H [facility] Last Admin: 12/03/17 10:47 Dose: 100 mls/hr Sodium Chloride (Normal Saline) 1,000 mls @ 150 mls/hr IV ASDIRECTED [facility] Last Admin: 12/03/17 05:12 Dose: 150 mls/hr Meropenem 1 gm/ Sodium (Chloride) 100 mls @ 200 mls/hr IV Q8H [facility] Last Admin: 12/03/17 09:00 Dose: 200 mls/hr Vancomycin HCl 1,500 mg/ (Sodium Chloride) 500 mls @ 250 mls/hr IV Q12H [facility] Last Admin: 12/03/17 00:02 Dose: 250 mls/hr Morphine Sulfate (Morphine) 2 mg IV ASDIRECTED PRN PRN Reason: Pain Last Admin: 12/03/17 10:40 Dose: 2 mg Omeprazole (Omeprazole) 20 mg PO ACBREAKFAST [facility] Last Admin: 12/03/17 06:31 Dose: 20 mg Ondansetron HCl (Zofran) 4 mg IVPUSH Q4H PRN PRN Reason: Nausea/Vomiting Last Admin: 11/30/17 22:49 Dose: 4 mg Sodium Chloride (Saline Flush) 10 ml FLUSH ASDIRECTED PRN PRN Reason: Keep Vein Open Sodium Chloride (Saline Flush) 2.5 ml FLUSH ASDIRECTED PRN PRN Reason: Keep Vein Open Vancomycin HCl (Pharmacy To Dose - Vancomycin) 1 dose .XX ASDIRECTED [facility] Discontinued Medications Albuterol/Ipratropium (Duoneb 3.0-0.5 Mg/3 Ml) 3 ml NEB Q4HRRT [facility] Last Admin: 11/30/17 13:48 Dose: 3 ml Calcium Carbonate/Glycine (Tums) 1,000 mg PO ONETIME ONE Stop: 11/29/17 10:54 Last Admin: 11/29/17 11:17 Dose: 1,000 mg Calcium Carbonate/Glycine (Tums) 1,000 mg PO ONETIME ONE Stop: 11/29/17 11:16 Last Admin: 11/29/17 11:19 Dose: Not Given Heparin Sodium (Porcine) (Heparin Lock Flush 100 Units/Ml) 300 unit FLUSH ASDIRECTED ONE Stop: 11/30/17 11:41 Last Admin: 11/30/17 11:51 Dose: 300 unit Levofloxacin/Dextrose 750 mg/ (Premix) 150 mls @ 100 mls/hr IV ONETIME ONE Stop: 11/28/17 16:53 Last Admin: 11/28/17 15:50 Dose: 100 mls/hr Sodium Chloride (Normal Saline) 1,000 mls @ 125 mls/hr IV STAT [facility] Last Infusion: 11/28/17 17:34 Dose: 0 mls/hr Sodium Chloride (Normal Saline) 1,000 mls @ 999 mls/hr IV .Bolus ONE Stop: 11/28/17 18:05 Last Admin: 11/28/17 17:33 Dose: 999 mls/hr Sodium Chloride (Normal Saline) 1,000 mls @ 125 mls/hr IV ASDIRECTED [facility] Vancomycin HCl 1,500 mg/ (Sodium Chloride) 500 mls @ 250 mls/hr IV Q8H [facility] Last Admin: 11/28/17 19:17 Dose: Not Given Levofloxacin/Dextrose 750 mg/ (Premix) 150 mls @ 100 mls/hr IV Q24H [facility] Levofloxacin/Dextrose 750 mg/ (Premix) 150 mls @ 100 mls/hr IV Q24H [facility] Last Admin: 11/30/17 17:30 Dose: 100 mls/hr Potassium Chloride/Sodium Chloride (Normal Saline With 40 Meq Kcl) 1,000 mls @ 150 mls/hr IV ASDIRECTED [facility] Stop: 11/30/17 00:24 Last Admin: 11/29/17 01:44 Dose: 150 mls/hr Sodium Chloride (Normal Saline) 1,000 mls @ 999 mls/hr IV STAT [facility] Stop: 11/28/17 19:46 Last Admin: 11/28/17 19:20 Dose: 999 mls/hr Vancomycin HCl 1,500 mg/ (Sodium Chloride) 500 mls @ 250 mls/hr IV Q8H [facility] Last Admin: 11/30/17 12:48 Dose: Not Given Magnesium Sulfate 4 gm/ Premix 100 mls @ 50 mls/hr IV ONETIME ONE Stop: 11/28/17 21:22 Last Admin: 11/28/17 20:04 Dose: 50 mls/hr Sodium Chloride (Normal Saline) 1,000 mls @ 999 mls/hr IV .BOLUS ONE Stop: 11/29/17 00:54 Last Admin: 11/29/17 00:18 Dose: 999 mls/hr Potassium Chloride/Sodium Chloride (Normal Saline With 40 Meq Kcl) 1,000 mls @ 150 mls/hr IV ASDIRECTED [facility] Stop: 11/29/17 17:39 Last Admin: 11/29/17 11:27 Dose: 150 mls/hr Sodium Chloride (Normal Saline) 1,000 mls @ 999 mls/hr IV .BOLUS ONE Stop: 11/29/17 16:52 Last Admin: 11/29/17 16:58 Dose: 999 mls/hr Sodium Chloride (Normal Saline) 1,000 mls @ 999 mls/hr IV ASDIRECTED [facility] Last Admin: 11/30/17 00:05 Dose: 999 mls/hr Sodium Chloride (Normal Saline) 1,000 mls @ 999 mls/hr IV STAT [facility] Last Admin: 11/30/17 09:26 Dose: 999 mls/hr Lidocaine (Xylocaine-Mpf 2%) Confirm Administered Dose 5 ml .ROUTE .STK-MED ONE Stop: 11/29/17 17:10 Last Admin: 11/29/17 17:29 Dose: 5 ml Lidocaine HCl (Xylocaine-Mpf 1%) 5 ml INJECT ONETIME STA Stop: 11/30/17 11:47 Last Admin: 11/30/17 11:50 Dose: 5 ml Morphine Sulfate (Morphine) 2 mg IVPUSH Q4H PRN PRN Reason: Pain (severe 7-10) Stop: 11/29/17 17:15 Potassium Chloride (Klor-Con M20) 40 meq PO ONETIME ONE Stop: 11/28/17 17:45 Last Admin: 11/28/17 17:51 Dose: Not Given - Exam General: Alert, Oriented GI/Abdominal Exam: Soft, No Distention - Problem List Review Problem List Initiated/Reviewed/Updated: Yes - My Orders Last 24 Hours: Active Orders 24 hr Category Date Time Status Patient Status [ADT] Routine ADT 12/02/17 22:00 Active Transfer Patient (Change bed) [ADT] Routine ADT 12/02/17 22:00 Ordered Morphine Med 12/02/17 19:49 Active 2 mg IV ASDIRECTED PRN Medication Orders Acetaminophen (Tylenol) 650 mg PO Q4H PRN PRN Reason: Pain (Mild 1-3)/fever Last Admin: 11/28/17 20:15 Dose: 650 mg Albuterol/Ipratropium (Duoneb 3.0-0.5 Mg/3 Ml) 3 ml NEB Q4HRRT PRN PRN Reason: Wheezing Last Admin: 12/01/17 12:16 Dose: 3 ml Admin: 11/30/17 23:17 Dose: 3 ml Clozapine (Clozapine) 100 mg PO ACBREAKFAST [facility] Last Admin: 12/03/17 06:31 Dose: 100 mg Admin: 12/02/17 06:33 Dose: 100 mg Admin: 12/01/17 08:38 Dose: Not Given Clozapine (Clozapine) 200 mg PO BEDTIME [facility] Last Admin: 12/02/17 20:12 Dose: 200 mg Admin: 12/01/17 20:42 Dose: 200 mg Admin: 11/30/17 20:42 Dose: 200 mg Escitalopram Oxalate (Lexapro) 30 mg PO DAILY [facility] Last Admin: 12/03/17 08:02 Dose: 30 mg Admin: 12/02/17 09:15 Dose: 30 mg Admin: 12/01/17 09:42 Dose: Not Given Piperacillin Sod/Tazobactam (Sod 4.5 gm/ Sodium Chloride) 100 mls @ 100 mls/hr IV Q6H [facility] Last Admin: 12/03/17 10:47 Dose: 100 mls/hr Infusion: 12/03/17 06:03 Dose: 100 mls/hr Admin: 12/03/17 05:03 Dose: 100 mls/hr Infusion: 12/03/17 00:00 Dose: 100 mls/hr Admin: 12/02/17 23:00 Dose: 100 mls/hr Infusion: 12/02/17 17:46 Dose: 100 mls/hr Admin: 12/02/17 16:46 Dose: 100 mls/hr Infusion: 12/02/17 12:11 Dose: 100 mls/hr Admin: 12/02/17 11:11 Dose: 100 mls/hr Infusion: 12/02/17 06:53 Dose: 100 mls/hr Admin: 12/02/17 05:53 Dose: 100 mls/hr Infusion: 12/02/17 00:11 Dose: 100 mls/hr Admin: 12/01/17 23:11 Dose: 100 mls/hr Infusion: 12/01/17 18:41 Dose: 100 mls/hr Admin: 12/01/17 17:41 Dose: 100 mls/hr Infusion: 12/01/17 12:19 Dose: 100 mls/hr Admin: 12/01/17 11:19 Dose: 100 mls/hr Infusion: 12/01/17 06:55 Dose: 100 mls/hr Admin: 12/01/17 05:55 Dose: 100 mls/hr Infusion: 12/01/17 00:17 Dose: 100 mls/hr Admin: 11/30/17 23:17 Dose: 100 mls/hr Infusion: 11/30/17 19:24 Dose: 100 mls/hr Admin: 11/30/17 18:24 Dose: 100 mls/hr Infusion: 11/30/17 13:18 Dose: 100 mls/hr Admin: 11/30/17 12:18 Dose: 100 mls/hr Infusion: 11/30/17 06:32 Dose: 100 mls/hr Admin: 11/30/17 05:32 Dose: 100 mls/hr Infusion: 11/30/17 00:46 Dose: 100 mls/hr Admin: 11/29/17 23:46 Dose: 100 mls/hr Infusion: 11/29/17 18:07 Dose: 100 mls/hr Admin: 11/29/17 17:07 Dose: 100 mls/hr Infusion: 11/29/17 12:23 Dose: 100 mls/hr Admin: 11/29/17 11:23 Dose: 100 mls/hr Infusion: 11/29/17 06:14 Dose: 100 mls/hr Admin: 11/29/17 05:14 Dose: 100 mls/hr Infusion: 11/29/17 00:46 Dose: 100 mls/hr Admin: 11/28/17 23:46 Dose: 100 mls/hr Infusion: 11/28/17 19:06 Dose: 100 mls/hr Admin: 11/28/17 18:06 Dose: 100 mls/hr Sodium Chloride (Normal Saline) 1,000 mls @ 150 mls/hr IV ASDIRECTED [facility] Last Admin: 12/03/17 05:12 Dose: 150 mls/hr Infusion: 12/03/17 01:27 Dose: 150 mls/hr Admin: 12/02/17 18:46 Dose: 150 mls/hr Infusion: 12/02/17 18:46 Dose: 150 mls/hr Admin: 12/02/17 12:14 Dose: 150 mls/hr Infusion: 12/02/17 10:45 Dose: 150 mls/hr Admin: 12/02/17 04:04 Dose: 150 mls/hr Infusion: 12/01/17 23:50 Dose: 150 mls/hr Admin: 12/01/17 17:09 Dose: 150 mls/hr Infusion: 12/01/17 12:54 Dose: 150 mls/hr Admin: 12/01/17 06:13 Dose: 150 mls/hr Infusion: 12/01/17 01:13 Dose: 150 mls/hr Admin: 11/30/17 18:32 Dose: 150 mls/hr Infusion: 11/30/17 12:19 Dose: 150 mls/hr Admin: 11/30/17 05:38 Dose: 150 mls/hr Infusion: 11/30/17 03:15 Dose: 150 mls/hr Admin: 11/29/17 20:34 Dose: 150 mls/hr Infusion: 11/29/17 15:20 Dose: 150 mls/hr Admin: 11/29/17 08:39 Dose: 150 mls/hr Infusion: 11/29/17 08:21 Dose: 150 mls/hr Admin: 11/29/17 01:40 Dose: 150 mls/hr Meropenem 1 gm/ Sodium (Chloride) 100 mls @ 200 mls/hr IV Q8H [facility] Last Admin: 12/03/17 09:00 Dose: 200 mls/hr Infusion: 12/03/17 02:52 Dose: 200 mls/hr Admin: 12/03/17 02:22 Dose: 200 mls/hr Infusion: 12/02/17 18:08 Dose: 200 mls/hr Admin: 12/02/17 17:38 Dose: 200 mls/hr Infusion: 12/02/17 09:46 Dose: 200 mls/hr Admin: 12/02/17 09:16 Dose: 200 mls/hr Infusion: 12/02/17 03:21 Dose: 200 mls/hr Admin: 12/02/17 02:51 Dose: 200 mls/hr Infusion: 12/01/17 19:31 Dose: 200 mls/hr Admin: 12/01/17 19:01 Dose: 200 mls/hr Infusion: 12/01/17 10:13 Dose: 200 mls/hr Admin: 12/01/17 09:43 Dose: 200 mls/hr Infusion: 12/01/17 03:23 Dose: 200 mls/hr Admin: 12/01/17 02:53 Dose: 200 mls/hr Infusion: 11/30/17 17:41 Dose: 200 mls/hr Admin: 11/30/17 17:11 Dose: 200 mls/hr Infusion: 11/30/17 10:23 Dose: 200 mls/hr Admin: 11/30/17 09:53 Dose: 200 mls/hr Vancomycin HCl 1,500 mg/ (Sodium Chloride) 500 mls @ 250 mls/hr IV Q12H [facility] Last Admin: 12/03/17 00:02 Dose: 250 mls/hr Infusion: 12/02/17 15:28 Dose: 250 mls/hr Admin: 12/02/17 13:28 Dose: 250 mls/hr Infusion: 12/02/17 02:10 Dose: 250 mls/hr Admin: 12/02/17 00:10 Dose: 250 mls/hr Infusion: 12/01/17 14:58 Dose: 250 mls/hr Admin: 12/01/17 12:58 Dose: 250 mls/hr Infusion: 12/01/17 02:38 Dose: 250 mls/hr Admin: 12/01/17 00:38 Dose: 250 mls/hr Infusion: 11/30/17 15:30 Dose: 250 mls/hr Admin: 11/30/17 13:30 Dose: 250 mls/hr Morphine Sulfate (Morphine) 2 mg IV ASDIRECTED PRN PRN Reason: Pain Last Admin: 12/03/17 10:40 Dose: 2 mg Omeprazole (Omeprazole) 20 mg PO ACBREAKFAST [facility] Last Admin: 12/03/17 06:31 Dose: 20 mg Admin: 12/02/17 06:33 Dose: 20 mg Admin: 12/01/17 08:38 Dose: Not Given Ondansetron HCl (Zofran) 4 mg IVPUSH Q4H PRN PRN Reason: Nausea/Vomiting Last Admin: 11/30/17 22:49 Dose: 4 mg Sodium Chloride (Saline Flush) 10 ml FLUSH ASDIRECTED PRN PRN Reason: Keep Vein Open Sodium Chloride (Saline Flush) 2.5 ml FLUSH ASDIRECTED PRN PRN Reason: Keep Vein Open Vancomycin HCl (Pharmacy To Dose - Vancomycin) 1 dose .XX ASDIRECTED [facility] - Assessment Assessment (Free Text/Narrative):: drain has zero output, and per pt, it has been like that for 10+ days; drain was placed 3 mos ago; drain removed without incident; supportive care, will sign off; recall if question - Plan Plan (Free Text/Narrative):: drain has zero output, and per pt, it has been like that for 10+ days; drain was placed 3 mos ago; drain removed without incident; supportive care, will sign off; recall if question
--- NOTE | 2017-12-03 14:37 | PCM.PN ---
- General Info Date of Service: 12/03/17 Subjective Update: Patient is having delusions/delirium. Patient multiple times while speaking to him stated that he wanted that the catheter, he wanted the state flag that was hanging on the wall, and other such request. Patient is eating, and we had decided to have the patient on full comfort care measures. - Patient Data Vitals - Most Recent: Last Vital Signs Temp 37.2 C 12/03/17 08:00 Pulse 108 H 12/03/17 08:00 Resp 20 12/03/17 08:00 BP 103/70 12/03/17 08:00 Pulse Ox 97 12/03/17 08:00 Weight - Most Recent: 158 kg I&O - Last 24 Hours: Intake & Output 12/02/17 12/03/17 12/03/17 22:59 06:59 14:59 Intake Total 2881 3240 1350 Output Total 750 1200 700 Balance 2131 2040 650 Lab Results Last 24 Hours: Laboratory Results - last 24 hr 12/03/17 12/03/17 Range/Units 05:20 05:30 WBC 23.93 H (4.0-11.0) K/uL RBC 2.76 L (4.50-5.90) M/uL Hgb 7.0 L (13.0-17.0) g/dL Hct 21.9 L (38.0-50.0) % MCV 79.3 L (80.0-98.0) fL MCH 25.4 L (27.0-32.0) pg MCHC 32.0 (31.0-37.0) g/dL RDW Std Deviation 49.6 (28.0-62.0) fl RDW Coeff of Lebron 17 H (11.0-15.0) % Plt Count 142 L (150-400) K/uL MPV 12.10 H (7.40-12.00) fL Add Manual Diff YES Neutrophils % (Manual) 82 H (48.0-80.0) % Band Neutrophils % 2 % Lymphocytes % (Manual) 9 L (16.0-40.0) % Monocytes % (Manual) 7 (0.0-15.0) % Nucleated RBC % 0.0 /100WBC Absolute Seg Neuts 19.6 H (1.4-5.7) Band Neutrophils # 0.5 Lymphocytes # (Manual) 2.2 (0.6-2.4) Monocytes # (Manual) 1.7 H (0.0-0.8) Nucleated RBCs # 0 K/uL Sodium 137 (136-148) mmol/L Potassium 3.3 L (3.5-5.1) mmol/L Chloride 109 H (98-107) mmol/L Carbon Dioxide 19.2 L (21.0-32.0) mmol/L BUN 8 (7.0-18.0) mg/dL Creatinine 0.8 (0.8-1.3) mg/dL Est Cr Clr Drug Dosing 148.42 mL/min Estimated GFR (MDRD) > 60.0 ml/min Glucose 96 (74-106) mg/dL Calcium 7.9 L (8.5-10.1) mg/dL Med Orders - Current: Current Medications Acetaminophen (Tylenol) 650 mg PO Q4H PRN PRN Reason: Pain (Mild 1-3)/fever Last Admin: 11/28/17 20:15 Dose: 650 mg Albuterol/Ipratropium (Duoneb 3.0-0.5 Mg/3 Ml) 3 ml NEB Q4HRRT PRN PRN Reason: Wheezing Last Admin: 12/01/17 12:16 Dose: 3 ml Clozapine (Clozapine) 100 mg PO ACBREAKFAST [facility] Last Admin: 12/03/17 06:31 Dose: 100 mg Clozapine (Clozapine) 200 mg PO BEDTIME [facility] Last Admin: 12/02/17 20:12 Dose: 200 mg Escitalopram Oxalate (Lexapro) 30 mg PO DAILY [facility] Last Admin: 12/03/17 08:02 Dose: 30 mg Morphine Sulfate (Morphine) 2 mg IV ASDIRECTED PRN PRN Reason: Pain Last Admin: 12/03/17 12:44 Dose: 2 mg Omeprazole (Omeprazole) 20 mg PO ACBREAKFAST [facility] Last Admin: 12/03/17 06:31 Dose: 20 mg Ondansetron HCl (Zofran) 4 mg IVPUSH Q4H PRN PRN Reason: Nausea/Vomiting Last Admin: 11/30/17 22:49 Dose: 4 mg Sodium Chloride (Saline Flush) 10 ml FLUSH ASDIRECTED PRN PRN Reason: Keep Vein Open Sodium Chloride (Saline Flush) 2.5 ml FLUSH ASDIRECTED PRN PRN Reason: Keep Vein Open Discontinued Medications Albuterol/Ipratropium (Duoneb 3.0-0.5 Mg/3 Ml) 3 ml NEB Q4HRRT [facility] Last Admin: 11/30/17 13:48 Dose: 3 ml Calcium Carbonate/Glycine (Tums) 1,000 mg PO ONETIME ONE Stop: 11/29/17 10:54 Last Admin: 11/29/17 11:17 Dose: 1,000 mg Calcium Carbonate/Glycine (Tums) 1,000 mg PO ONETIME ONE Stop: 11/29/17 11:16 Last Admin: 11/29/17 11:19 Dose: Not Given Heparin Sodium (Porcine) (Heparin Lock Flush 100 Units/Ml) 300 unit FLUSH ASDIRECTED ONE Stop: 11/30/17 11:41 Last Admin: 11/30/17 11:51 Dose: 300 unit Levofloxacin/Dextrose 750 mg/ (Premix) 150 mls @ 100 mls/hr IV ONETIME ONE Stop: 11/28/17 16:53 Last Admin: 11/28/17 15:50 Dose: 100 mls/hr Sodium Chloride (Normal Saline) 1,000 mls @ 125 mls/hr IV STAT [facility] Last Infusion: 11/28/17 17:34 Dose: 0 mls/hr Piperacillin Sod/Tazobactam (Sod 4.5 gm/ Sodium Chloride) 100 mls @ 100 mls/hr IV Q6H [facility] Last Admin: 12/03/17 10:47 Dose: 100 mls/hr Sodium Chloride (Normal Saline) 1,000 mls @ 999 mls/hr IV .Bolus ONE Stop: 11/28/17 18:05 Last Admin: 11/28/17 17:33 Dose: 999 mls/hr Sodium Chloride (Normal Saline) 1,000 mls @ 125 mls/hr IV ASDIRECTED [facility] Vancomycin HCl 1,500 mg/ (Sodium Chloride) 500 mls @ 250 mls/hr IV Q8H [facility] Last Admin: 11/28/17 19:17 Dose: Not Given Levofloxacin/Dextrose 750 mg/ (Premix) 150 mls @ 100 mls/hr IV Q24H [facility] Levofloxacin/Dextrose 750 mg/ (Premix) 150 mls @ 100 mls/hr IV Q24H [facility] Last Admin: 11/30/17 17:30 Dose: 100 mls/hr Potassium Chloride/Sodium Chloride (Normal Saline With 40 Meq Kcl) 1,000 mls @ 150 mls/hr IV ASDIRECTED [facility] Stop: 11/30/17 00:24 Last Admin: 11/29/17 01:44 Dose: 150 mls/hr Sodium Chloride (Normal Saline) 1,000 mls @ 999 mls/hr IV STAT [facility] Stop: 11/28/17 19:46 Last Admin: 11/28/17 19:20 Dose: 999 mls/hr Vancomycin HCl 1,500 mg/ (Sodium Chloride) 500 mls @ 250 mls/hr IV Q8H [facility] Last Admin: 11/30/17 12:48 Dose: Not Given Magnesium Sulfate 4 gm/ Premix 100 mls @ 50 mls/hr IV ONETIME ONE Stop: 11/28/17 21:22 Last Admin: 11/28/17 20:04 Dose: 50 mls/hr Sodium Chloride (Normal Saline) 1,000 mls @ 999 mls/hr IV .BOLUS ONE Stop: 11/29/17 00:54 Last Admin: 11/29/17 00:18 Dose: 999 mls/hr Sodium Chloride (Normal Saline) 1,000 mls @ 150 mls/hr IV ASDIRECTED [facility] Last Admin: 12/03/17 05:12 Dose: 150 mls/hr Potassium Chloride/Sodium Chloride (Normal Saline With 40 Meq Kcl) 1,000 mls @ 150 mls/hr IV ASDIRECTED [facility] Stop: 11/29/17 17:39 Last Admin: 11/29/17 11:27 Dose: 150 mls/hr Sodium Chloride (Normal Saline) 1,000 mls @ 999 mls/hr IV .BOLUS ONE Stop: 11/29/17 16:52 Last Admin: 11/29/17 16:58 Dose: 999 mls/hr Sodium Chloride (Normal Saline) 1,000 mls @ 999 mls/hr IV ASDIRECTED [facility] Last Admin: 11/30/17 00:05 Dose: 999 mls/hr Sodium Chloride (Normal Saline) 1,000 mls @ 999 mls/hr IV STAT [facility] Last Admin: 11/30/17 09:26 Dose: 999 mls/hr Meropenem 1 gm/ Sodium (Chloride) 100 mls @ 200 mls/hr IV Q8H [facility] Last Admin: 12/03/17 09:00 Dose: 200 mls/hr Vancomycin HCl 1,500 mg/ (Sodium Chloride) 500 mls @ 250 mls/hr IV Q12H [facility] Last Admin: 12/03/17 13:11 Dose: Not Given Lidocaine (Xylocaine-Mpf 2%) Confirm Administered Dose 5 ml .ROUTE .STK-MED ONE Stop: 11/29/17 17:10 Last Admin: 11/29/17 17:29 Dose: 5 ml Lidocaine HCl (Xylocaine-Mpf 1%) 5 ml INJECT ONETIME STA Stop: 11/30/17 11:47 Last Admin: 11/30/17 11:50 Dose: 5 ml Morphine Sulfate (Morphine) 2 mg IVPUSH Q4H PRN PRN Reason: Pain (severe 7-10) Stop: 11/29/17 17:15 Potassium Chloride (Klor-Con M20) 40 meq PO ONETIME ONE Stop: 11/28/17 17:45 Last Admin: 11/28/17 17:51 Dose: Not Given Vancomycin HCl (Pharmacy To Dose - Vancomycin) 1 dose .XX ASDIRECTED [facility] - Exam Quality Assessment: Supplemental Oxygen General: Mild Distress Lungs: Decreased Breath Sounds Cardiovascular: Tachycardia GI/Abdominal Exam: Distended Extremities: Pedal Edema - Problem List & Annotations (1) Pancreatic cancer metastasized to liver SNOMED Code(s): 336149458 Code(s): C25.9 - MALIGNANT NEOPLASM OF PANCREAS, UNSPECIFIED; C78.7 - SECONDARY MALIG NEOPLASM OF LIVER AND INTRAHEPATIC BILE DUCT Status: Acute Current Visit: Yes (2) Generalized weakness SNOMED Code(s): 89465976 Code(s): R53.1 - WEAKNESS Status: Acute Current Visit: Yes (3) Anemia SNOMED Code(s): 533003803 Code(s): D64.9 - ANEMIA, UNSPECIFIED Status: Acute Current Visit: No (4) Hyperbilirubinemia SNOMED Code(s): 36905619 Code(s): E80.6 - OTHER DISORDERS OF BILIRUBIN METABOLISM Status: Acute Current Visit: No - Problem List Review Problem List Initiated/Reviewed/Updated: Yes - My Orders Last 24 Hours: My Active Orders 12/02/17 19:49 Morphine 2 mg IV ASDIRECTED PRN 12/02/17 22:00 Patient Status [ADT] Routine Transfer Patient (Change bed) [ADT] Routine - Plan Plan:: This is a 37-year-old male with a history of schizophrenia and likely pancreatic cancer presenting with weakness and jaundice with elevated LFTs, WBC , elevated lactic acid level indicating sepsis secondary to urinary tract infection complicated by a metastatic pancreatic cancer diagnosis. Assessment/plan #1. Leukocytosis with WBC count of greater than 18 #2. Hemodynamic instability with blood pressures systolically in the 80s diastolically in the 40s, with maps in the high 50s to low 60s., She did however has been doing better recently and his noninvasive maps have been above 60s #3. Anemia, weakness likely secondary to #1 and diagnosis of pancreatic metastatic cancer to the liver. #4. Elevated LFTs, bilirubin, alk phosphatase secondary to pancreatic metastatic cancer to the liver. #5. Ostomy bag likely secondary to procedure for pancreatic metastatic cancer shall find out from [place]. For the urinary tract infection causing sepsis we shall be placing the patient on vancomycin, Zosyn, Levaquin for antibiotic coverage until the urinary culture comes back as well as blood cultures come back. Jed james family have decided to move towards comfort care/hospice care. Patient is now becoming more delirious and there is the likely possibility that his decline may be quite rapid. We have decided to DC the patient's IV fluids and antibiotics and all other interventions as he is getting quite edematous from the IV fluids and it does not seem to be helping him. His leukocytosis still is rising. I shall be placing the patient on comfort care measures with morphine, oxycodone, Zofran, Ativan for pain control, agitation and nausea and vomiting.
[2017-12-03] MEDS ORDERED: LORazepam 2 MG/ML SDV IM PRN (14:39)
[2017-12-03] MEDS ORDERED: oxyCODONE 5 MG Tab PO PRN (14:39)
[2017-12-03] MEDS ORDERED: LORazepam 2 MG/ML SDV IVPUSH PRN (19:25)
[2017-12-03] MEDS ORDERED: Morphine 2 MG/ML Syringe IVPUSH PRN (20:54)
--- NOTE | 2017-12-04 09:54 | PCM.PN ---
- Review of Systems Systems Review Comment:: denies any pain, sleeping well - Patient Data Vitals - Most Recent: Last Vital Signs Temp 37.3 C 12/03/17 20:00 Pulse 111 H 12/03/17 20:00 Resp 20 12/03/17 20:00 BP 115/62 12/03/17 20:00 Pulse Ox 95 12/03/17 20:00 Weight - Most Recent: 158 kg I&O - Last 24 Hours: Intake & Output 12/03/17 12/04/17 12/04/17 22:59 06:59 14:59 Intake Total 0 Output Total 150 1200 Balance -150 -1200 Med Orders - Current: Current Medications Acetaminophen (Tylenol) 650 mg PO Q4H PRN PRN Reason: Pain (Mild 1-3)/fever Last Admin: 11/28/17 20:15 Dose: 650 mg Lorazepam (Ativan) 0.5 mg IVPUSH Q4H PRN PRN Reason: Agitation Morphine Sulfate (Morphine) 2 mg IVPUSH Q2H PRN PRN Reason: Pain Ondansetron HCl (Zofran) 4 mg IVPUSH Q4H PRN PRN Reason: Nausea/Vomiting Last Admin: 11/30/17 22:49 Dose: 4 mg Oxycodone HCl (Oxycodone) 10 mg PO Q4H PRN PRN Reason: Pain Sodium Chloride (Saline Flush) 10 ml FLUSH ASDIRECTED PRN PRN Reason: Keep Vein Open Sodium Chloride (Saline Flush) 2.5 ml FLUSH ASDIRECTED PRN PRN Reason: Keep Vein Open Discontinued Medications Albuterol/Ipratropium (Duoneb 3.0-0.5 Mg/3 Ml) 3 ml NEB Q4HRRT [facility] Last Admin: 11/30/17 13:48 Dose: 3 ml Albuterol/Ipratropium (Duoneb 3.0-0.5 Mg/3 Ml) 3 ml NEB Q4HRRT PRN PRN Reason: Wheezing Last Admin: 12/01/17 12:16 Dose: 3 ml Calcium Carbonate/Glycine (Tums) 1,000 mg PO ONETIME ONE Stop: 11/29/17 10:54 Last Admin: 11/29/17 11:17 Dose: 1,000 mg Calcium Carbonate/Glycine (Tums) 1,000 mg PO ONETIME ONE Stop: 11/29/17 11:16 Last Admin: 11/29/17 11:19 Dose: Not Given Clozapine (Clozapine) 100 mg PO ACBREAKFAST [facility] Last Admin: 12/03/17 06:31 Dose: 100 mg Clozapine (Clozapine) 200 mg PO BEDTIME [facility] Last Admin: 12/02/17 20:12 Dose: 200 mg Escitalopram Oxalate (Lexapro) 30 mg PO DAILY [facility] Last Admin: 12/03/17 08:02 Dose: 30 mg Heparin Sodium (Porcine) (Heparin Lock Flush 100 Units/Ml) 300 unit FLUSH ASDIRECTED ONE Stop: 11/30/17 11:41 Last Admin: 11/30/17 11:51 Dose: 300 unit Levofloxacin/Dextrose 750 mg/ (Premix) 150 mls @ 100 mls/hr IV ONETIME ONE Stop: 11/28/17 16:53 Last Admin: 11/28/17 15:50 Dose: 100 mls/hr Sodium Chloride (Normal Saline) 1,000 mls @ 125 mls/hr IV STAT [facility] Last Infusion: 11/28/17 17:34 Dose: 0 mls/hr Piperacillin Sod/Tazobactam (Sod 4.5 gm/ Sodium Chloride) 100 mls @ 100 mls/hr IV Q6H [facility] Last Admin: 12/03/17 10:47 Dose: 100 mls/hr Sodium Chloride (Normal Saline) 1,000 mls @ 999 mls/hr IV .Bolus ONE Stop: 11/28/17 18:05 Last Admin: 11/28/17 17:33 Dose: 999 mls/hr Sodium Chloride (Normal Saline) 1,000 mls @ 125 mls/hr IV ASDIRECTED [facility] Vancomycin HCl 1,500 mg/ (Sodium Chloride) 500 mls @ 250 mls/hr IV Q8H [facility] Last Admin: 11/28/17 19:17 Dose: Not Given Levofloxacin/Dextrose 750 mg/ (Premix) 150 mls @ 100 mls/hr IV Q24H [facility] Levofloxacin/Dextrose 750 mg/ (Premix) 150 mls @ 100 mls/hr IV Q24H [facility] Last Admin: 11/30/17 17:30 Dose: 100 mls/hr Potassium Chloride/Sodium Chloride (Normal Saline With 40 Meq Kcl) 1,000 mls @ 150 mls/hr IV ASDIRECTED [facility] Stop: 11/30/17 00:24 Last Admin: 11/29/17 01:44 Dose: 150 mls/hr Sodium Chloride (Normal Saline) 1,000 mls @ 999 mls/hr IV STAT [facility] Stop: 11/28/17 19:46 Last Admin: 11/28/17 19:20 Dose: 999 mls/hr Vancomycin HCl 1,500 mg/ (Sodium Chloride) 500 mls @ 250 mls/hr IV Q8H [facility] Last Admin: 11/30/17 12:48 Dose: Not Given Magnesium Sulfate 4 gm/ Premix 100 mls @ 50 mls/hr IV ONETIME ONE Stop: 11/28/17 21:22 Last Admin: 11/28/17 20:04 Dose: 50 mls/hr Sodium Chloride (Normal Saline) 1,000 mls @ 999 mls/hr IV .BOLUS ONE Stop: 11/29/17 00:54 Last Admin: 11/29/17 00:18 Dose: 999 mls/hr Sodium Chloride (Normal Saline) 1,000 mls @ 150 mls/hr IV ASDIRECTED [facility] Last Admin: 12/03/17 05:12 Dose: 150 mls/hr Potassium Chloride/Sodium Chloride (Normal Saline With 40 Meq Kcl) 1,000 mls @ 150 mls/hr IV ASDIRECTED [facility] Stop: 11/29/17 17:39 Last Admin: 11/29/17 11:27 Dose: 150 mls/hr Sodium Chloride (Normal Saline) 1,000 mls @ 999 mls/hr IV .BOLUS ONE Stop: 11/29/17 16:52 Last Admin: 11/29/17 16:58 Dose: 999 mls/hr Sodium Chloride (Normal Saline) 1,000 mls @ 999 mls/hr IV ASDIRECTED [facility] Last Admin: 11/30/17 00:05 Dose: 999 mls/hr Sodium Chloride (Normal Saline) 1,000 mls @ 999 mls/hr IV STAT [facility] Last Admin: 11/30/17 09:26 Dose: 999 mls/hr Meropenem 1 gm/ Sodium (Chloride) 100 mls @ 200 mls/hr IV Q8H [facility] Last Admin: 12/03/17 09:00 Dose: 200 mls/hr Vancomycin HCl 1,500 mg/ (Sodium Chloride) 500 mls @ 250 mls/hr IV Q12H [facility] Last Admin: 12/03/17 13:11 Dose: Not Given Lidocaine (Xylocaine-Mpf 2%) Confirm Administered Dose 5 ml .ROUTE .STK-MED ONE Stop: 11/29/17 17:10 Last Admin: 11/29/17 17:29 Dose: 5 ml Lidocaine HCl (Xylocaine-Mpf 1%) 5 ml INJECT ONETIME STA Stop: 11/30/17 11:47 Last Admin: 11/30/17 11:50 Dose: 5 ml Lorazepam (Ativan) 0.5 mg IM Q4H PRN PRN Reason: Agitation Morphine Sulfate (Morphine) 2 mg IVPUSH Q4H PRN PRN Reason: Pain (severe 7-10) Stop: 11/29/17 17:15 Morphine Sulfate (Morphine) 2 mg IV ASDIRECTED PRN PRN Reason: Pain Last Admin: 12/03/17 18:45 Dose: 2 mg Omeprazole (Omeprazole) 20 mg PO ACBREAKFAST [facility] Last Admin: 12/03/17 06:31 Dose: 20 mg Potassium Chloride (Klor-Con M20) 40 meq PO ONETIME ONE Stop: 11/28/17 17:45 Last Admin: 11/28/17 17:51 Dose: Not Given Vancomycin HCl (Pharmacy To Dose - Vancomycin) 1 dose .XX ASDIRECTED [facility] - Exam General: Sedated Lungs: Clear to Auscultation, Normal Respiratory Effort GI/Abdominal Exam: Soft, Non-Tender Extremities: No Pedal Edema Skin: Warm, Dry, Intact, Other (jaundiced) - Problem List Review Problem List Initiated/Reviewed/Updated: Yes - My Orders Last 24 Hours: My Active Orders 12/03/17 20:54 Morphine 2 mg IVPUSH Q2H PRN - Plan Plan:: This is a 37-year-old male with a history of schizophrenia and metastatic pancreatic cancer presenting with weakness and jaundice with elevated LFTs, WBC , elevated lactic acid level indicating sepsis secondary to urinary tract infection complicated by a metastatic pancreatic cancer diagnosis. Plan: will continue comfort care, plan on discharging to [facility] once bed available.
[2017-12-05 09:40] VITALS: BP 113/64
--- NOTE | 2017-12-07 23:34 | PCM.DCSUM1 ---
<El Atkinson Z - Last Filed: 12/07/17 23:28> Discharge Summary - Hospital Course HPI Initial Comments: Discharge Summary Date of admission: 11/28/2018 Date of discharge: 12/05/2017 Admitting diagnosis: #1. Urosepsis #2. Stage IV pancreatic cancer with metastasis #3. Schizophrenia #4. #5. Discharge diagnoses: #1. Urosepsis not improving #2. Stage IV pancreatic cancer with metastasis #3. 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 Schizophrenia #5. Consultations: None Procedures: None Hospitalization course: Patient was admitted on 11/28/2017 secondary to urosepsis. He was in the ICU throughout the entire time until 2 end of his stay due to his complicated history of stage IV pancreatic cancer that had been status post, multiple complications secondary to the metastasis and increase severe urosepsis infection she despite aggressive IV antibiotic therapy, fluid resuscitation, and aggressive intervention was not improving. Had a very extensive discussion with Jed who is alert and orientated during these discussions.. He was saying and he repeated paracentesis today that he wanted his last few days alive to be happy and to be comfortable as such he decided to make the decision to no longer pursue any sort of therapy and move towards comfort care/hospice measures. He was alert and oriented throughout this entire process. We had multiple discussions with both his sisters and his mother along with him. Jed was subsequently discharged to [facility] on comfort care measures and hospice care. Disposition on discharge: Serious Condition on discharge: [facility] Discharge medications: Hospice care medications - Discharge Data Discharge Date: 12/05/17 Discharge Disposition: DC/[facility] Condition: Stable - Discharge Diagnosis/Problem(s) (1) Pancreatic cancer metastasized to liver SNOMED Code(s): 874259205 ICD Code: C25.9 - MALIGNANT NEOPLASM OF PANCREAS, UNSPECIFIED; C78.7 - SECONDARY MALIG NEOPLASM OF LIVER AND INTRAHEPATIC BILE DUCT Status: Acute (2) Generalized weakness SNOMED Code(s): 06915636 ICD Code: R53.1 - WEAKNESS Status: Acute (3) Anemia SNOMED Code(s): 449132154 ICD Code: D64.9 - ANEMIA, UNSPECIFIED Status: Acute (4) Hyperbilirubinemia SNOMED Code(s): 28859781 ICD Code: E80.6 - OTHER DISORDERS OF BILIRUBIN METABOLISM Status: Acute - Patient Summary/Data Consults: Consultations 11/28/17 17:11 Consult to Physician [CONS] Routine 12/02/17 10:58 Consult to Hospice [CONS] Routine - Patient Instructions Diet: Usual Diet as Tolerated Activity: As Tolerated Driving: Do Not Drive Showering/Bathing: May Shower Notify Provider of: Fever, Increased Pain, Swelling and Redness, Drainage, Nausea and/or Vomiting - Discharge Plan Prescriptions/Med Rec: Acetaminophen [Tylenol] 650 mg PO Q4H PRN 5 Days #30 tablet PRN Reason: Pain (Mild 1-3)/fever LORazepam 2 mg PO Q4H PRN 7 Days #42 tablet PRN Reason: Anxiety Morphine [Morphine 20 MG/5 ML] 5 mg PO Q1H PRN 7 Days #50 ml PRN Reason: Pain Ondansetron [Zofran ODT] 4 mg PO Q6H PRN 7 Days #42 tab.dis PRN Reason: Nausea/Vomiting oxyCODONE 10 mg PO Q4H PRN 7 Days #42 tablet PRN Reason: Pain Home Medications: Home Meds cloZAPine [Clozaril] 100 mg PO ACBREAKFAST 01/07/17 [History] Escitalopram [Lexapro] 30 mg PO DAILY 01/18/17 [History] cloZAPine [Clozaril] 200 mg PO BEDTIME 01/18/17 [History] Acetaminophen [Tylenol] 650 mg PO Q4H PRN 5 Days #30 tablet 12/05/17 [Rx] LORazepam 2 mg PO Q4H PRN 7 Days #42 tablet 12/05/17 [Rx] Morphine [Morphine 20 MG/5 ML] 5 mg PO Q1H PRN 7 Days #50 ml 12/05/17 [Rx] Ondansetron [Zofran ODT] 4 mg PO Q6H PRN 7 Days #42 tab.dis 12/05/17 [Rx] oxyCODONE 10 mg PO Q4H PRN 7 Days #42 tablet 12/05/17 [Rx] Forms: ED Department Discharge Referrals: Rene Lambert MD [Physician] - (next [facility] rounds) PCP,None [Primary Care Provider] - - Discharge Summary/Plan Comment DC Time >30 min.: No - Patient Data Vitals - Most Recent: Last Vital Signs Temp 36.7 C 12/05/17 08:00 Pulse 107 H 12/05/17 08:00 Resp 20 12/05/17 08:00 BP 113/64 12/05/17 08:00 Pulse Ox 95 12/05/17 08:00 Weight - Most Recent: 158 kg Med Orders - Current: Current Medications Discontinued Medications Acetaminophen (Tylenol) 650 mg PO Q4H PRN PRN Reason: Pain (Mild 1-3)/fever Last Admin: 11/28/17 20:15 Dose: 650 mg Albuterol/Ipratropium (Duoneb 3.0-0.5 Mg/3 Ml) 3 ml NEB Q4HRRT [facility] Last Admin: 11/30/17 13:48 Dose: 3 ml Albuterol/Ipratropium (Duoneb 3.0-0.5 Mg/3 Ml) 3 ml NEB Q4HRRT PRN PRN Reason: Wheezing Last Admin: 12/01/17 12:16 Dose: 3 ml Calcium Carbonate/Glycine (Tums) 1,000 mg PO ONETIME ONE Stop: 11/29/17 10:54 Last Admin: 11/29/17 11:17 Dose: 1,000 mg Calcium Carbonate/Glycine (Tums) 1,000 mg PO ONETIME ONE Stop: 11/29/17 11:16 Last Admin: 11/29/17 11:19 Dose: Not Given Clozapine (Clozapine) 100 mg PO ACBREAKFAST [facility] Last Admin: 12/03/17 06:31 Dose: 100 mg Clozapine (Clozapine) 200 mg PO BEDTIME [facility] Last Admin: 12/02/17 20:12 Dose: 200 mg Escitalopram Oxalate (Lexapro) 30 mg PO DAILY [facility] Last Admin: 12/03/17 08:02 Dose: 30 mg Heparin Sodium (Porcine) (Heparin Lock Flush 100 Units/Ml) 300 unit FLUSH ASDIRECTED ONE Stop: 11/30/17 11:41 Last Admin: 11/30/17 11:51 Dose: 300 unit Levofloxacin/Dextrose 750 mg/ (Premix) 150 mls @ 100 mls/hr IV ONETIME ONE Stop: 11/28/17 16:53 Last Admin: 11/28/17 15:50 Dose: 100 mls/hr Sodium Chloride (Normal Saline) 1,000 mls @ 125 mls/hr IV STAT [facility] Last Infusion: 11/28/17 17:34 Dose: 0 mls/hr Piperacillin Sod/Tazobactam (Sod 4.5 gm/ Sodium Chloride) 100 mls @ 100 mls/hr IV Q6H [facility] Last Admin: 12/03/17 10:47 Dose: 100 mls/hr Sodium Chloride (Normal Saline) 1,000 mls @ 999 mls/hr IV .Bolus ONE Stop: 11/28/17 18:05 Last Admin: 11/28/17 17:33 Dose: 999 mls/hr Sodium Chloride (Normal Saline) 1,000 mls @ 125 mls/hr IV ASDIRECTED [facility] Vancomycin HCl 1,500 mg/ (Sodium Chloride) 500 mls @ 250 mls/hr IV Q8H [facility] Last Admin: 11/28/17 19:17 Dose: Not Given Levofloxacin/Dextrose 750 mg/ (Premix) 150 mls @ 100 mls/hr IV Q24H [facility] Levofloxacin/Dextrose 750 mg/ (Premix) 150 mls @ 100 mls/hr IV Q24H [facility] Last Admin: 11/30/17 17:30 Dose: 100 mls/hr Potassium Chloride/Sodium Chloride (Normal Saline With 40 Meq Kcl) 1,000 mls @ 150 mls/hr IV ASDIRECTED [facility] Stop: 11/30/17 00:24 Last Admin: 11/29/17 01:44 Dose: 150 mls/hr Sodium Chloride (Normal Saline) 1,000 mls @ 999 mls/hr IV STAT [facility] Stop: 11/28/17 19:46 Last Admin: 11/28/17 19:20 Dose: 999 mls/hr Vancomycin HCl 1,500 mg/ (Sodium Chloride) 500 mls @ 250 mls/hr IV Q8H [facility] Last Admin: 11/30/17 12:48 Dose: Not Given Magnesium Sulfate 4 gm/ Premix 100 mls @ 50 mls/hr IV ONETIME ONE Stop: 11/28/17 21:22 Last Admin: 11/28/17 20:04 Dose: 50 mls/hr Sodium Chloride (Normal Saline) 1,000 mls @ 999 mls/hr IV .BOLUS ONE Stop: 11/29/17 00:54 Last Admin: 11/29/17 00:18 Dose: 999 mls/hr Sodium Chloride (Normal Saline) 1,000 mls @ 150 mls/hr IV ASDIRECTED [facility] Last Admin: 12/03/17 05:12 Dose: 150 mls/hr Potassium Chloride/Sodium Chloride (Normal Saline With 40 Meq Kcl) 1,000 mls @ 150 mls/hr IV ASDIRECTED [facility] Stop: 11/29/17 17:39 Last Admin: 11/29/17 11:27 Dose: 150 mls/hr Sodium Chloride (Normal Saline) 1,000 mls @ 999 mls/hr IV .BOLUS ONE Stop: 11/29/17 16:52 Last Admin: 11/29/17 16:58 Dose: 999 mls/hr Sodium Chloride (Normal Saline) 1,000 mls @ 999 mls/hr IV ASDIRECTED [facility] Last Admin: 11/30/17 00:05 Dose: 999 mls/hr Sodium Chloride (Normal Saline) 1,000 mls @ 999 mls/hr IV STAT [facility] Last Admin: 11/30/17 09:26 Dose: 999 mls/hr Meropenem 1 gm/ Sodium (Chloride) 100 mls @ 200 mls/hr IV Q8H [facility] Last Admin: 12/03/17 09:00 Dose: 200 mls/hr Vancomycin HCl 1,500 mg/ (Sodium Chloride) 500 mls @ 250 mls/hr IV Q12H [facility] Last Admin: 12/03/17 13:11 Dose: Not Given Lidocaine (Xylocaine-Mpf 2%) Confirm Administered Dose 5 ml .ROUTE .STK-MED ONE Stop: 11/29/17 17:10 Last Admin: 11/29/17 17:29 Dose: 5 ml Lidocaine HCl (Xylocaine-Mpf 1%) 5 ml INJECT ONETIME STA Stop: 11/30/17 11:47 Last Admin: 11/30/17 11:50 Dose: 5 ml Lorazepam (Ativan) 0.5 mg IM Q4H PRN PRN Reason: Agitation Lorazepam (Ativan) 0.5 mg IVPUSH Q4H PRN PRN Reason: Agitation Morphine Sulfate (Morphine) 2 mg IVPUSH Q4H PRN PRN Reason: Pain (severe 7-10) Stop: 11/29/17 17:15 Morphine Sulfate (Morphine) 2 mg IV ASDIRECTED PRN PRN Reason: Pain Last Admin: 12/03/17 18:45 Dose: 2 mg Morphine Sulfate (Morphine) 2 mg IVPUSH Q2H PRN PRN Reason: Pain Omeprazole (Omeprazole) 20 mg PO ACBREAKFAST [facility] Last Admin: 12/03/17 06:31 Dose: 20 mg Ondansetron HCl (Zofran) 4 mg IVPUSH Q4H PRN PRN Reason: Nausea/Vomiting Last Admin: 11/30/17 22:49 Dose: 4 mg Oxycodone HCl (Oxycodone) 10 mg PO Q4H PRN PRN Reason: Pain Potassium Chloride (Klor-Con M20) 40 meq PO ONETIME ONE Stop: 11/28/17 17:45 Last Admin: 11/28/17 17:51 Dose: Not Given Sodium Chloride (Saline Flush) 10 ml FLUSH ASDIRECTED PRN PRN Reason: Keep Vein Open Sodium Chloride (Saline Flush) 2.5 ml FLUSH ASDIRECTED PRN PRN Reason: Keep Vein Open Vancomycin HCl (Pharmacy To Dose - Vancomycin) 1 dose .XX ASDIRECTED [facility] *Q Meaningful Use (DIS) - VTE *Q VTE Criteria *Q: - Stroke *Q Stroke Criteria *Q: - AMI *Q AMI Criteria *Q: <[place] - Last Filed: 12/08/17 20:43> Discharge Summary - Patient Summary/Data Consults: Consultations 11/28/17 17:11 Consult to Physician [CONS] Routine 12/02/17 10:58 Consult to Hospice [CONS] Routine - Patient Data Vitals - Most Recent: Last Vital Signs Temp 36.7 C 12/05/17 08:00 Pulse 107 H 12/05/17 08:00 Resp 20 12/05/17 08:00 BP 113/64 12/05/17 08:00 Pulse Ox 95 12/05/17 08:00 Med Orders - Current: Current Medications Discontinued Medications Acetaminophen (Tylenol) 650 mg PO Q4H PRN PRN Reason: Pain (Mild 1-3)/fever Last Admin: 11/28/17 20:15 Dose: 650 mg Albuterol/Ipratropium (Duoneb 3.0-0.5 Mg/3 Ml) 3 ml NEB Q4HRRT [facility] Last Admin: 11/30/17 13:48 Dose: 3 ml Albuterol/Ipratropium (Duoneb 3.0-0.5 Mg/3 Ml) 3 ml NEB Q4HRRT PRN PRN Reason: Wheezing Last Admin: 12/01/17 12:16 Dose: 3 ml Calcium Carbonate/Glycine (Tums) 1,000 mg PO ONETIME ONE Stop: 11/29/17 10:54 Last Admin: 11/29/17 11:17 Dose: 1,000 mg Calcium Carbonate/Glycine (Tums) 1,000 mg PO ONETIME ONE Stop: 11/29/17 11:16 Last Admin: 11/29/17 11:19 Dose: Not Given Clozapine (Clozapine) 100 mg PO ACBREAKFAST [facility] Last Admin: 12/03/17 06:31 Dose: 100 mg Clozapine (Clozapine) 200 mg PO BEDTIME [facility] Last Admin: 12/02/17 20:12 Dose: 200 mg Escitalopram Oxalate (Lexapro) 30 mg PO DAILY [facility] Last Admin: 12/03/17 08:02 Dose: 30 mg Heparin Sodium (Porcine) (Heparin Lock Flush 100 Units/Ml) 300 unit FLUSH ASDIRECTED ONE Stop: 11/30/17 11:41 Last Admin: 11/30/17 11:51 Dose: 300 unit Levofloxacin/Dextrose 750 mg/ (Premix) 150 mls @ 100 mls/hr IV ONETIME ONE Stop: 11/28/17 16:53 Last Admin: 11/28/17 15:50 Dose: 100 mls/hr Sodium Chloride (Normal Saline) 1,000 mls @ 125 mls/hr IV STAT [facility] Last Infusion: 11/28/17 17:34 Dose: 0 mls/hr Piperacillin Sod/Tazobactam (Sod 4.5 gm/ Sodium Chloride) 100 mls @ 100 mls/hr IV Q6H [facility] Last Admin: 12/03/17 10:47 Dose: 100 mls/hr Sodium Chloride (Normal Saline) 1,000 mls @ 999 mls/hr IV .Bolus ONE Stop: 11/28/17 18:05 Last Admin: 11/28/17 17:33 Dose: 999 mls/hr Sodium Chloride (Normal Saline) 1,000 mls @ 125 mls/hr IV ASDIRECTED [facility] Vancomycin HCl 1,500 mg/ (Sodium Chloride) 500 mls @ 250 mls/hr IV Q8H [facility] Last Admin: 11/28/17 19:17 Dose: Not Given Levofloxacin/Dextrose 750 mg/ (Premix) 150 mls @ 100 mls/hr IV Q24H [facility] Levofloxacin/Dextrose 750 mg/ (Premix) 150 mls @ 100 mls/hr IV Q24H [facility] Last Admin: 11/30/17 17:30 Dose: 100 mls/hr Potassium Chloride/Sodium Chloride (Normal Saline With 40 Meq Kcl) 1,000 mls @ 150 mls/hr IV ASDIRECTED [facility] Stop: 11/30/17 00:24 Last Admin: 11/29/17 01:44 Dose: 150 mls/hr Sodium Chloride (Normal Saline) 1,000 mls @ 999 mls/hr IV STAT [facility] Stop: 11/28/17 19:46 Last Admin: 11/28/17 19:20 Dose: 999 mls/hr Vancomycin HCl 1,500 mg/ (Sodium Chloride) 500 mls @ 250 mls/hr IV Q8H [facility] Last Admin: 11/30/17 12:48 Dose: Not Given Magnesium Sulfate 4 gm/ Premix 100 mls @ 50 mls/hr IV ONETIME ONE Stop: 11/28/17 21:22 Last Admin: 11/28/17 20:04 Dose: 50 mls/hr Sodium Chloride (Normal Saline) 1,000 mls @ 999 mls/hr IV .BOLUS ONE Stop: 11/29/17 00:54 Last Admin: 11/29/17 00:18 Dose: 999 mls/hr Sodium Chloride (Normal Saline) 1,000 mls @ 150 mls/hr IV ASDIRECTED [facility] Last Admin: 12/03/17 05:12 Dose: 150 mls/hr Potassium Chloride/Sodium Chloride (Normal Saline With 40 Meq Kcl) 1,000 mls @ 150 mls/hr IV ASDIRECTED [facility] Stop: 11/29/17 17:39 Last Admin: 11/29/17 11:27 Dose: 150 mls/hr Sodium Chloride (Normal Saline) 1,000 mls @ 999 mls/hr IV .BOLUS ONE Stop: 11/29/17 16:52 Last Admin: 11/29/17 16:58 Dose: 999 mls/hr Sodium Chloride (Normal Saline) 1,000 mls @ 999 mls/hr IV ASDIRECTED [facility] Last Admin: 11/30/17 00:05 Dose: 999 mls/hr Sodium Chloride (Normal Saline) 1,000 mls @ 999 mls/hr IV STAT [facility] Last Admin: 11/30/17 09:26 Dose: 999 mls/hr Meropenem 1 gm/ Sodium (Chloride) 100 mls @ 200 mls/hr IV Q8H [facility] Last Admin: 12/03/17 09:00 Dose: 200 mls/hr Vancomycin HCl 1,500 mg/ (Sodium Chloride) 500 mls @ 250 mls/hr IV Q12H [facility] Last Admin: 12/03/17 13:11 Dose: Not Given Lidocaine (Xylocaine-Mpf 2%) Confirm Administered Dose 5 ml .ROUTE .STK-MED ONE Stop: 11/29/17 17:10 Last Admin: 11/29/17 17:29 Dose: 5 ml Lidocaine HCl (Xylocaine-Mpf 1%) 5 ml INJECT ONETIME STA Stop: 11/30/17 11:47 Last Admin: 11/30/17 11:50 Dose: 5 ml Lorazepam (Ativan) 0.5 mg IM Q4H PRN PRN Reason: Agitation Lorazepam (Ativan) 0.5 mg IVPUSH Q4H PRN PRN Reason: Agitation Morphine Sulfate (Morphine) 2 mg IVPUSH Q4H PRN PRN Reason: Pain (severe 7-10) Stop: 11/29/17 17:15 Morphine Sulfate (Morphine) 2 mg IV ASDIRECTED PRN PRN Reason: Pain Last Admin: 12/03/17 18:45 Dose: 2 mg Morphine Sulfate (Morphine) 2 mg IVPUSH Q2H PRN PRN Reason: Pain Omeprazole (Omeprazole) 20 mg PO ACBREAKFAST [facility] Last Admin: 12/03/17 06:31 Dose: 20 mg Ondansetron HCl (Zofran) 4 mg IVPUSH Q4H PRN PRN Reason: Nausea/Vomiting Last Admin: 11/30/17 22:49 Dose: 4 mg Oxycodone HCl (Oxycodone) 10 mg PO Q4H PRN PRN Reason: Pain Potassium Chloride (Klor-Con M20) 40 meq PO ONETIME ONE Stop: 11/28/17 17:45 Last Admin: 11/28/17 17:51 Dose: Not Given Sodium Chloride (Saline Flush) 10 ml FLUSH ASDIRECTED PRN PRN Reason: Keep Vein Open Sodium Chloride (Saline Flush) 2.5 ml FLUSH ASDIRECTED PRN PRN Reason: Keep Vein Open Vancomycin HCl (Pharmacy To Dose - Vancomycin) 1 dose .XX ASDIRECTED CHLOE *Q Meaningful Use (DIS) - VTE *Q VTE Criteria *Q: - Stroke *Q Stroke Criteria *Q: - AMI *Q AMI Criteria *Q: - Free Text/Narrative Note: I have examined the patient. I have discussed findings and treatment plan with the resident. I agree with the assessment and plan outlined in the following resident's note.
== END 2017-12-05 13:30 | DRG 872 ==
LOC: MW.ED 11:40 → EEVIPCON 15:39 → MW.MS 15:39 → MW.ICU 11-29 16:41 → MW.MS 12-03 16:08
PROVIDERS: ADMIT Family Medicine; ATTEND Family Medicine
PROC: 03HY32Z Insertion of Monitoring Device into Upper Artery, Percutaneous Approach (ICD-10-PCS; principal; 2017-11-29)
PROC: 05HN33Z Insertion of Infusion Device into Left Internal Jugular Vein, Percutaneous Approach (ICD-10-PCS; 2017-11-29)
PROC: 02HV33Z Insertion of Infusion Device into Superior Vena Cava, Percutaneous Approach (ICD-10-PCS; 2017-11-30)
DX: A41.9 Sepsis, unspecified organism (principal); T83.511A Infection and inflammatory reaction due to indwelling urethral catheter, initial encounter; N39.0 Urinary tract infection, site not specified; C25.9 Malignant neoplasm of pancreas, unspecified; C78.7 Secondary malignant neoplasm of liver and intrahepatic bile duct; Z68.41 Body mass index [BMI] 40.0-44.9, adult; D72.829 Elevated white blood cell count, unspecified; B96.20 Unspecified Escherichia coli [E. coli] as the cause of diseases classified elsewhere; E78.00 Pure hypercholesterolemia, unspecified; F41.8 Other specified anxiety disorders; F20.9 Schizophrenia, unspecified; R53.1 Weakness; D64.9 Anemia, unspecified; E80.6 Other disorders of bilirubin metabolism; E87.6 Hypokalemia; E66.9 Obesity, unspecified; Z79.899 Other long term (current) drug therapy; Z66 Do not resuscitate; Z88.0 Allergy status to penicillin; Z51.5 Encounter for palliative care
CPT/HCPCS: 36415; 36569; 36600; 51701; 71045; 71045-26; 71250; 71250-26; 74176; 74176-26; 76705; 76705-26; 76937; 76937-26; 77001; 77001-26; 80048; 80053; 80202; 81001; 82140; 82150; 82803; 83605; 83690; 83735; 84100; 84484; 85025; 85610; 87040; 87077; 87086; 87186; 87804; 93005; 94640; 96365; 99283; 99285-25; A9270-GY; J1642; J1956; J2185; J2270; J2405; J2543; J3370; J3475; J3480; J7030; J7040